=== PATIENT | female | born 1955 | race Caucasian/White ===

== ENCOUNTER 2018-01-18 00:08 | Inpatient (IN) ==
[2018-01-18] MEDS ORDERED: Hydrocortisone Sodium Succ 100 MG/2 ML VIAL IVP ONE (00:45)
[2018-01-18 00:52] LABS: Basophils # 0.1 K/mcL (0.0-0.2); Basophils % 0.7 %; Eosinophils # 0.1 K/mcL (0.0-0.6); Eosinophils % 0.8 %; Hematocrit 48.5 % (35.3-44.9); Immature Granulocytes % 0.5 % (0-4); Lymphocytes # 1.7 K/mcL (0.6-4.6); Lymphocytes % 18.5 %; Mean Corpuscular HGB Conc 35.1 g/dL (31.6-35.5); Mean Corpuscular Hemoglobin 31.2 pg (28.0-33.3); Mean Platelet Volume 9.7 fL (9.4-12.4); Monocytes # 0.3 K/mcL (0.0-1.3); Monocytes % 3.3 %; Platelet Count 288 K/mcL (140-400); Red Blood Count 5.45 M/mcL (3.82-4.97); Segmented Neutrophils % 76.2 %
[2018-01-18 01:11] LABS: Alanine Aminotransferase 37 Units/L (7-52); Albumin 4.9 g/dL (3.5-5.7); Albumin/Globulin Ratio 1.5 (1.1-2.2); Alkaline Phosphatase 96 Units/L (34-104); Aspartate Amino Transferase 53 Units/L (13-39); BUN/Creatinine Ratio 33 (6-26); Bilirubin,Total 0.5 mg/dL (0.3-1.0); Blood Urea Nitrogen 22 mg/dL (8-23); Calcium 10.3 mg/dL (8.6-10.3); Carbon Dioxide 27 mEq/L (23-29); Chloride 100 mEq/L (98-107); Globulin 3.2 g/dL (2.4-3.5); Glucose 90 mg/dL (70-105); Osmolality,Calculated 291 (280-300); Potassium 4.3 mEq/L (3.5-5.1); Sodium 139 mEq/L (136-145); Total Protein 8.1 g/dL (6.4-8.9); Troponin I < 0.03 ng/mL (< 0.04); eGFR For Non-African Americans > 60 (> 60)
[2018-01-18 01:24] LABS: Thyroid Stimulating Hormone 1.429 mcIU/mL (0.340-5.600)
--- NOTE | 2018-01-18 02:40 | Emergency Department Note ---
Disposition Clinical Impression: Syncope Qualifiers: Syncope type: unspecified Qualified Code(s): R55 - Syncope and collapse Hypothermia Qualifiers: Encounter type: initial encounter Qualified Code(s): T68.XXXA - Hypothermia, initial encounter Urinary incontinence Qualifiers: Urinary Incontinence type: unspecified incontinence Qualified Code(s): R32 - Unspecified urinary incontinence Disposition: Admitted As Inpatient Condition: Fair General Adult HPI - General Chief complaint: ED Chest Pain Stated complaint: possible heart attack Time Seen by Provider: 01/18/18 00:16 Source: patient, EMS Mode of arrival: EMS Limitations: no limitations Nursing Notes Reviewed: Yes Vital Signs Reviewed: Yes - History of Present Illness HPI Narrative: 61-year-old female with significant past medical history of hypertension and insulin-dependent diabetes presenting to the emergency department chief complaint of syncope. According to the patient today she felt that her sugar was high. Her glucometer has been broken. She gave herself 35 units of insulin. Around 6 PM an insurance investigator came to her home for a hard scheduled visit. Patient states she does not remember anything else until approximately an hour later when she woke up sitting in her chair and she had loss control of her bladder. Patient states her front door was open at that time. Then patient syncopized again. The next time she woke up was around 11 PM. She called EMS at that time. When EMS arrived to the hospital they stated she was bradycardic in the upper 30s and low 40s on the ride here. During examination patient is shaky but alert and oriented. She denies any chest pain, dizziness or headache at this time. Pain Scale: 0 - Related Data Home Medications Medication Instructions Recorded Confirmed Amlodipine [Norvasc] 10 mg PO QAM 02/05/15 04/02/16 Aspirin Enteric Coated [Aspirin EC] 81 mg PO QAM 02/05/15 04/02/16 Insulin ASPART [NovoLOG] 40 unit SQ TIDWM 02/05/15 04/02/16 Insulin Glargine,Hum.rec.anlog 40 unit SQ QPM 02/05/15 04/02/16 [Lantus Solostar] Lisinopril [Zestril] 40 mg PO DAILY 02/05/15 04/02/16 Metoprolol [Lopressor] 50 mg PO BID 02/05/15 04/02/16 FLUoxetine HCl [Prozac] 20 mg PO DAILY 04/02/16 04/02/16 Previous Rx's Medication Instructions Recorded Acetaminophen [Tylenol] 650 mg PO Q6HR PRN #0 tablet 12/21/15 Allergies Allergy/AdvReac Type Severity Reaction Status Date / Time Penicillins Allergy Rash Verified 03/22/15 07:26 All systems ED: reviewed and negative except as stated. Constitutional: Denies: fever, chills Eyes: Reports: as per HPI ENT ED: Reports: as per HPI Cardiovascular: Denies: chest pain, palpitations, dyspnea on exertion Respiratory: Reports: as per HPI Gastrointestinal: Reports: as per HPI Genitourinary: Reports: as per HPI Musculoskeletal: Reports: as per HPI Integumentary: Reports: as per HPI Neurological: Denies: headache, numbness, paresthesias Psychiatric: Reports: as per HPI Endocrine: Reports: as per HPI Hematological/Lymphatic: Reports: as per HPI Allergic/Immunologic: Reports: as per HPI Past Medical History - Past Medical History Attestation: Yes The following information was validated with the patient. Medical history: Reports: diabetes, hypertension, kidney stones, renal disease Surgical history: Reports: cholecystectomy, hysterectomy, other Psychiatric history: Reports: anxiety, depression BISCUITWARE BRUSHER history: Reports: no BISCUITWARE BRUSHER history - Social History Smoking Status: Never smoker Smokeless Tobacco Status: No Alcohol use: Reports: none Drug use: Reports: none Physical Exam - General Limitations: no limitations General appearance: alert, anxious - Head Head exam: atraumatic, normocephalic, normal inspection - Eye Eye exam: Present: normal appearance, PERRL, EOMI. Absent: scleral icterus, conjunctival injection - ENT ENT exam: normal exam, mucous membranes moist - Neck Neck exam: Present: normal inspection, full ROM. Absent: tenderness, meningismus - Chest Chest inspection: Present: normal inspection, symmetric chest wall rise. Absent : tenderness, rash - Respiratory Respiratory exam: Present: normal lung sounds bilaterally. Absent: respiratory distress, wheezes - Cardiovascular Cardiovascular exam: Present: normal rhythm, bradycardia, normal heart sounds - Abdominal Exam Abdominal exam: Present: soft, Non-Tender. Absent: distention, guarding, rebound - Extremities Exam Extremities exam: Present: normal inspection, full ROM - Neurological Exam Neurological exam: Present: alert, oriented X3, CN II-XII intact. Absent: motor sensory deficit - Psychiatric Psychiatric exam: Present: anxious - Skin Skin exam: Present: warm, intact Course Course Narrative: 62-year-old female presenting for syncope. On exam patient is alert and oriented 3 in the room. She is bradycardic at 40 bpm. She is also hypertensive. Rectal temperature is 90.9. Multiple causes could be the reason for these abnormal findings. We will perform a wide workup including CBC, CMP, TSH, beta hydroxybutyrate acid along with CT of the head. Disposition will be admission the pending results. We will also provide the patient with a Bear hugger to help increase her core temperature. Patient agrees with this plan. - Reevaluation(s) Reevaluation #1: Patient's laboratory analysis mostly benign. No overt cause of syncope found. CT of the head benign. With warming patient's temperature is increased and heart rate has increased as well. Patient has remained alert and oriented 3 in the emergency department. At this time we will plan to admit the patient for further evaluation and workup for her syncope. I spoke with the hospitalist [facility] consultant Dr. Oglesby with agrees to accept the patient at this time. Patient agrees with this plan. Vital Signs Temperature 97.6 F 01/18/18 00:12 Pulse Rate 40 01/18/18 00:12 Respiratory Rate 18 01/18/18 00:12 Blood Pressure 169/116 01/18/18 00:12 O2 Sat by Pulse Oximetry 100 01/18/18 00:12 Temperature 94.3 F L 01/18/18 03:07 Pulse Rate 45 01/18/18 02:14 Respiratory Rate 16 01/18/18 02:14 Blood Pressure 197/79 01/18/18 02:14 O2 Sat by Pulse Oximetry 98 01/18/18 02:14 Oxygen Delivery Oxygen Delivery Room Air Medical Decision Making - Lab Data Result diagrams: 01/18/18 00:35 01/18/18 00:35 Lab Results 01/18/18 01/18/18 01/18/18 Range/Units 00:35 00:35 00:35 WBC 9.2 (4.3-11.1) K/mcL RBC 5.45 H (3.82-4.97) M/mcL Hgb 17.0 H (11.5-15.4) g/dL Hct 48.5 H (35.3-44.9) % MCV 89.0 (83.0-100.0) fL MCH 31.2 (28.0-33.3) pg MCHC 35.1 (31.6-35.5) g/dL RDW 13.0 (11.5-14.5) % Plt Count 288 (140-400) K/mcL MPV 9.7 (9.4-12.4) fL Immature Gran % 0.5 (0-4) % Seg Neutrophils % 76.2 % Lymphocytes % 18.5 % Monocytes % 3.3 % Eosinophils % 0.8 % Basophils % 0.7 % Neutrophils # 7.0 (1.6-8.9) K/mcL Lymphocytes # 1.7 (0.6-4.6) K/mcL Monocytes # 0.3 (0.0-1.3) K/mcL Eosinophils # 0.1 (0.0-0.6) K/mcL Basophils # 0.1 (0.0-0.2) K/mcL Sodium 139 (136-145) mEq/L Potassium 4.3 (3.5-5.1) mEq/L Chloride 100 (98-107) mEq/L Carbon Dioxide 27 (23-29) mEq/L BUN 22 (8-23) mg/dL Creatinine 0.66 (0.60-1.20) mg/dL Est GFR ( Amer) > 60 (> 60) Est GFR (Non-Af Amer) > 60 (> 60) BUN/Creatinine Ratio 33 H (6-26) Glucose 90 (70-105) mg/dL Calculated Osmolality 291 (280-300) Calcium 10.3 (8.6-10.3) mg/dL Total Bilirubin 0.5 (0.3-1.0) mg/dL AST 53 H (13-39) Units/L ALT 37 (7-52) Units/L Alkaline Phosphatase 96 (34-104) Units/L Troponin I < 0.03 (< 0.04) ng/mL Serum Total Protein 8.1 (6.4-8.9) g/dL Albumin 4.9 (3.5-5.7) g/dL Globulin 3.2 (2.4-3.5) g/dL Albumin/Globulin Ratio 1.5 (1.1-2.2) Beta-Hydroxybutyric Acd 0.30 H (0.02-0.27) mmol/L TSH 1.429 (0.340-5.600) mcIU/mL - EKG Data EKG #1 EKG attestation: Yes I reviewed and interpreted this EKG. EKG results narrative: Sinus bradycardia. 40 bpm. [place] interval 176, QRS 103, QTC 517. Significant artifact on EKG. No signs of acute ST segment elevation or ischemia.
[2018-01-18] MEDS ORDERED: Naloxone 0.4 MG/ML INJ IVP PRN (02:57)
--- NOTE | 2018-01-18 03:06 | Emergency Department Note ---
Disposition Clinical Impression: Urinary incontinence Syncope Qualifiers: Syncope type: unspecified Qualified Code(s): R55 - Syncope and collapse Hypothermia Qualifiers: Encounter type: initial encounter Qualified Code(s): T68.XXXA - Hypothermia, initial encounter Disposition: Admitted As Inpatient Condition: Fair General Adult HPI - General Chief complaint: ED Chest Pain Stated complaint: possible heart attack Time Seen by Provider: 01/18/18 00:16 Source: patient, EMS Mode of arrival: EMS Limitations: no limitations Nursing Notes Reviewed: Yes Vital Signs Reviewed: Yes - History of Present Illness Pain Scale: 0 - Related Data Home Medications Medication Instructions Recorded Confirmed Amlodipine [Norvasc] 10 mg PO QAM 02/05/15 01/18/18 Aspirin Enteric Coated [Aspirin EC] 81 mg PO QAM 02/05/15 01/18/18 Insulin ASPART [NovoLOG] 40 unit SQ TIDWM 02/05/15 01/18/18 Insulin Glargine,Hum.rec.anlog 40 unit SQ QPM 02/05/15 01/18/18 [Lantus Solostar] Lisinopril [Zestril] 40 mg PO DAILY 02/05/15 01/18/18 Metoprolol [Lopressor] 50 mg PO BID 02/05/15 01/18/18 FLUoxetine HCl [Prozac] 20 mg PO DAILY 04/02/16 01/18/18 Previous Rx's Medication Instructions Recorded Acetaminophen [Tylenol] 650 mg PO Q6HR PRN #0 tablet 12/21/15 Allergies Allergy/AdvReac Type Severity Reaction Status Date / Time Penicillins Allergy Rash Verified 03/22/15 07:26 Past Medical History - Past Medical History Medical history: Reports: diabetes, hypertension, kidney stones, renal disease Surgical history: Reports: cholecystectomy, hysterectomy, other Psychiatric history: Reports: anxiety, depression RETAIL MERCHANDISING MANAGER history: Reports: no RETAIL MERCHANDISING MANAGER history - Social History Smoking Status: Never smoker Smokeless Tobacco Status: No Alcohol use: Reports: none Drug use: Reports: none Physical Exam - General Limitations: no limitations General appearance: alert Course Vital Signs Temperature 97.6 F 01/18/18 00:12 Pulse Rate 40 01/18/18 00:12 Respiratory Rate 18 01/18/18 00:12 Blood Pressure 169/116 01/18/18 00:12 O2 Sat by Pulse Oximetry 100 01/18/18 00:12 Temperature 94.3 F L 01/18/18 03:07 Pulse Rate 47 01/18/18 03:25 Respiratory Rate 16 01/18/18 03:25 Blood Pressure 180/79 01/18/18 03:25 O2 Sat by Pulse Oximetry 100 01/18/18 03:25 Oxygen Delivery Oxygen Delivery Room Air Medical Decision Making - Medical Records Medical records reviewed: Yes I reviewed the patient's medical records. - Lab Data Lab results reviewed: Yes I reviewed the patient's lab results. Result diagrams: 01/18/18 00:35 01/18/18 00:35 Lab Results 01/18/18 01/18/18 01/18/18 Range/Units 00:35 00:35 00:35 WBC 9.2 (4.3-11.1) K/mcL RBC 5.45 H (3.82-4.97) M/mcL Hgb 17.0 H (11.5-15.4) g/dL Hct 48.5 H (35.3-44.9) % MCV 89.0 (83.0-100.0) fL MCH 31.2 (28.0-33.3) pg MCHC 35.1 (31.6-35.5) g/dL RDW 13.0 (11.5-14.5) % Plt Count 288 (140-400) K/mcL MPV 9.7 (9.4-12.4) fL Immature Gran % 0.5 (0-4) % Seg Neutrophils % 76.2 % Lymphocytes % 18.5 % Monocytes % 3.3 % Eosinophils % 0.8 % Basophils % 0.7 % Neutrophils # 7.0 (1.6-8.9) K/mcL Lymphocytes # 1.7 (0.6-4.6) K/mcL Monocytes # 0.3 (0.0-1.3) K/mcL Eosinophils # 0.1 (0.0-0.6) K/mcL Basophils # 0.1 (0.0-0.2) K/mcL Sodium 139 (136-145) mEq/L Potassium 4.3 (3.5-5.1) mEq/L Chloride 100 (98-107) mEq/L Carbon Dioxide 27 (23-29) mEq/L BUN 22 (8-23) mg/dL Creatinine 0.66 (0.60-1.20) mg/dL Est GFR ( Amer) > 60 (> 60) Est GFR (Non-Af Amer) > 60 (> 60) BUN/Creatinine Ratio 33 H (6-26) Glucose 90 (70-105) mg/dL Calculated Osmolality 291 (280-300) Calcium 10.3 (8.6-10.3) mg/dL Total Bilirubin 0.5 (0.3-1.0) mg/dL AST 53 H (13-39) Units/L ALT 37 (7-52) Units/L Alkaline Phosphatase 96 (34-104) Units/L Troponin I < 0.03 (< 0.04) ng/mL Serum Total Protein 8.1 (6.4-8.9) g/dL Albumin 4.9 (3.5-5.7) g/dL Globulin 3.2 (2.4-3.5) g/dL Albumin/Globulin Ratio 1.5 (1.1-2.2) Beta-Hydroxybutyric Acd 0.30 H (0.02-0.27) mmol/L TSH 1.429 (0.340-5.600) mcIU/mL - Radiology Data Radiology results reviewed: Yes I reviewed the patient's radiology results. Chest X-Ray 01/18/18 00:16 IMPRESSION: No acute abnormality detected. D/ / Michael Hernandes MD / Michael Hernandes MD Interpreting Provider: Michael Hernandes MD Head CT 01/18/18 01:13 IMPRESSION: No acute intracranial abnormality. D/ / Jb Noe / Jb Noe Interpreting Provider: Jb Noe - EKG Data EKG #1 EKG attestation: Yes I reviewed and interpreted this EKG. EKG results narrative: EKG shows a sinus bradycardia with ventricular rate of 40. No acute ST segment elevation or depression noted. Critical Care Time Critical Care Time: Yes Total Critical Care Time: 45 Attestation: Critical care performed: Time is exclusive of separately billable procedures. Time includes: direct patient care, patient reassessment, coordination of patient care, interpretation of data (laboratory data, radiology data, and respiratory data), review of patient's medical records, medical consultation and documentation of patient care. Procedures included in critical care time: Procedures excluded from critical care time: Attestation Statement - Attestation Attestation: I, Gil Grigsby MD, personally evaluated this patient and discussed their management with the resident physician. I reviewed the resident's note and agree with the documented findings, medical decision making, and plan of care. 62-year-old female presents to the emergency department by ambulance with a complaint of some chest pain as well as altered mental status. Patient states she felt fine throughout the day and has not been ill. She is not diabetic. There is a friend here who states that she had coffee with the patient about 3: 30 this afternoon and patient was fine at that time. Patient reports that she was not feeling well and she remembers an title insurance agent came to her home for a scheduled visit. This was around 5 PM. The next thing she remembers is that she woke up sometime around 6 or 6:30 PM and the salesman was gone and the door was open. She apparently got up and close the door and then the next thing she remembers she woke up about 11:30 PM sitting in her chair in front of the television. At that time she had some chest pains and shortness of breath. She called EMS. On arrival here the pain has resolved however she was noted to be bradycardic with a heart rate of around 40. She also states that she took some extra insulin this evening because she felt like her sugar was high. He has not been able to check her sugar because her glucometer was broken. Here in the emergency department patient was awake and alert but was noted to also be hypothermic with a rectal temperature of 90.9. She denies any chest pain or shortness of breath at this time. No abdominal pain. No nausea or vomiting or diarrhea. No fever. No headache. No focal numbness tingling or weakness. On examination patient is a well-developed well-nourished female in no acute distress. She is alert and oriented 3. There is no cyanosis or diaphoresis. Breath sounds are clear and equal bilaterally. Heart is regular with a moderate bradycardia. Abdomen is soft and nontender with present bowel sounds. No gross focal neurological deficits. EKG showed a sinus bradycardia with a rate of 40. Labs and imaging reviewed. Patient's symptoms did improve significantly while here in the emergency department. The hospitalist, Dr. Oglesby, was consulted and accepted admission of the patient.
--- NOTE | 2018-01-18 03:22 | Internal Med History&Physical ---
Date of Encounter: 01/18/18 Time of Encounter: 03:20 Internal Medicine - H&P: HPI Chief complaint: Syncope Admitted From: Home Plans for Post Hospital Care: Home History of present illness: Ms. Hunter is a 62 year old female presented with chief complaint of syncope. Patient reports at 5 PM she had an appointment at her house with a renters insurance operations rep and was sitting in chair during the appointment. Thereafter she remembers waking up at 6 PM to passing out. Her front door was open and the insurance operations rep was gone. She reports she does not remember what happened before she passed out and states she wet herself. She reports having all her clothes on. She deines using illicit drugs. Thereafter she woke up she passed out again woke up again at 11:00. At that time patient called the squad. She also called her sister reports that patient's speech was garbled and difficult to understand. She denies dizziness, lightheadedness, tongue bite, loss of bowel function. She is a type I diabetic and reports giving herself 35 units of insulin at 5 PM without checking her blood sugar since her glucometer was broken. Her last hemoglobin A1c was 10.1 on March 2016. She also reported some shortness of breath and chest pain that has not resolved. She denies headache, blurry vision, abdominal pain, nausea, vomiting, diarrhea, hematochezia, melena, constipation. She reports her recently a few months ago. She reports weight loss but does not know how much. Past Med Surg Social Fam HX - Past Medical History Medical history: diabetes, hypertension, kidney stones, renal disease Psychiatric history: anxiety, depression - Past Surgical History Surgical History: cholecystectomy, hysterectomy, other Additional surgical history: RIGHT NEPHRECTOMY - Social History Smoking Status: Never smoker Smokeless Tobacco Status: No Alcohol use: none Drug use: none Occupational status: disabled (diabetes) - Family History Mother Living Status: Hx Family Cardiac Disorders: Yes Hx Family Respiratory Disorders: No Hx Family Cancer: No Hx Family GI Disorders: No Hx Family Endocrine Disorder: Yes Hx Family Neuromuscular Disorders: No Hx Family Neurologic Disorders: No Hx Family HEENT Disorders: No Hx Family Autoimmune Disorders: No Internal Medicine - H&P: Meds Amlodipine [Norvasc] 10 mg PO QAM 02/05/15 [History] Aspirin Enteric Coated [Aspirin EC] 81 mg PO QAM 02/05/15 [History] Insulin ASPART [NovoLOG] 40 unit SQ TIDWM 02/05/15 [History] Insulin Glargine,Hum.rec.anlog [Lantus Solostar] 40 unit SQ QPM 02/05/15 [ History] Lisinopril [Zestril] 40 mg PO DAILY 02/05/15 [History] Metoprolol [Lopressor] 50 mg PO BID 02/05/15 [History] Acetaminophen [Tylenol] 650 mg PO Q6HR PRN #0 tablet 12/21/15 [Rx] FLUoxetine HCl [Prozac] 20 mg PO DAILY 04/02/16 [History] 3 Allergy/AdvReac Type Severity Reaction Status Date / Time Penicillins Allergy Rash Verified 03/22/15 07:26 All Systems PM: A 10-system review of systems was performed and is negative for pertinent findings except as documented above in the HPI. Review of systems: Constitutional: Denies fever, reports chills HEENT: Denies headache, vision changes, neck pain, sore throat, rhinorrhea Heart: reports chest pain denies palpitations Lungs: reports shortness of breath denies cough Abdomen: Denies abdominal pain nausea vomiting diarrhea Back: Denies back pain Kidney: Denies dysuria, hematuria Skin: Denies rash, lesions Extremities: Denies swelling, pain Neuro: Denies numbness and tingling - Constitutional Vitals: Temp Pulse Resp BP Pulse Ox 94.3 F L 45 16 197/79 98 01/18/18 03:07 01/18/18 02:14 01/18/18 02:14 01/18/18 02:14 01/18/18 02:14 Exam: General: Pleasant without distress HEENT: Head atraumatic, normocephalic, EOMI, PERRL, neck nontender to palpation , absent lymphadenopathy, Moist Mucous Membranes, Heart: Sinus bradycardia Lungs: Clear to auscultation bilaterally Abdomen: Soft nontender, nondistended positive bowel sounds Skin: warm and dry, absent rash Extremities: Absent pedal edema, Neuro: Cranial nerves II through XII intact, UE and LE sensation equal bilaterally, UE and LEstrength 5/5, alert oriented 3, Vascular: Pedal and radial pulses 2 out of 4 Internal Med - H&P Results - Labs CBC & Chem 7: 01/18/18 00:35 01/18/18 00:35 Labs: Short CBC 01/18/18 Range/Units 00:35 WBC 9.2 (4.3-11.1) K/mcL Hgb 17.0 H (11.5-15.4) g/dL Hct 48.5 H (35.3-44.9) % Plt Count 288 (140-400) K/mcL Neutrophils # 7.0 (1.6-8.9) K/mcL BMP 01/18/18 00:35 Sodium 139 Potassium 4.3 Chloride 100 Carbon Dioxide 27 BUN 22 Creatinine 0.66 Glucose 90 Calcium 10.3 Cardiac Enzymes 01/18/18 Range/Units 00:35 Troponin I < 0.03 (< 0.04) ng/mL Liver Function 01/18/18 Range/Units 00:35 Total Bilirubin 0.5 (0.3-1.0) mg/dL AST 53 H (13-39) Units/L ALT 37 (7-52) Units/L Alkaline Phosphatase 96 (34-104) Units/L Albumin 4.9 (3.5-5.7) g/dL - Impressions ITS Impressions Chest X-Ray 01/18/18 00:16 IMPRESSION: No acute abnormality detected. D/ / Michael Hernandes MD / Michael Hernandes MD Interpreting Provider: Michael Hernandes MD Head CT 01/18/18 01:13 IMPRESSION: No acute intracranial abnormality. D/ / Jb Noe / Jb Noe Interpreting Provider: Jb Noe - Assessment and plan (1) Syncope Current Visit: Yes Status: Acute Assessment and plan: 62 y/o female presented with cc of syncope Ct head negative EKG shows sinus bradycardia trop WNL etiology: hypoglycemia: patient gave herself 35 units of insulin. Her glucose was 83 on presentation. She states it is usually in the 500s hypothermia: unknown etiology of hypothermia seziure: denies tongue biting, or loss of bowel function. reports loss of bladder function cardiac: patient is sinus bradycardia. She does take metoprolol and reports compliance. plan: telemetry, EEG, echocardiogram, thryoid cascade Qualifiers: Syncope type: unspecified Qualified Code(s): R55 - Syncope and collapse (2) Hypothermia Current Visit: Yes Status: Acute Assessment and plan: patients rectal temperature was 90.9 degrees on admission unclear etiology tsh wnl she has a bear hugger and her temp has improved to 94.3 patient was given stress dose steroids by ED Qualifiers: Encounter type: initial encounter Qualified Code(s): T68.XXXA - Hypothermia , initial encounter (3) Bradycardia Current Visit: Yes Status: Acute Assessment and plan: patients EKG shows sinus bradycardia. HR is 47 she is on metoprolol 50mg BID which is held will do echocardiogram (4) Type 1 diabetes mellitus Current Visit: Yes Status: Acute Assessment and plan: patient has hx of type 1 diabetes mellitus last A1c is from 2016 and was 10 will repeat A1c start her on diabetic diet and low dose sliding scale insulin current POC glucose is 83. Qualifiers: Diabetes mellitus complication status: without complication Qualified Code( s): E10.9 - Type 1 diabetes mellitus without complications (5) Anxiety and depression Current Visit: Yes Status: Acute Assessment and plan: patient has hx of anxiety and depression she is on fluoxetine her just few months ago and this has been very hard for her she does not see a psychiatrist or counselor she report some weight loss since her husbands we will continue fluoxetine. (6) HTN (hypertension) Current Visit: Yes Status: Chronic Assessment and plan: patient has hx of HTN reports compliance with her home medications of lisinopril, amlodipine and metoprolol. however her BP is very elevated 180/79 we will restart her home meds except for metoprolol and trend BP Qualifiers: Hypertension type: essential hypertension Qualified Code(s): I10 - Essential (primary) hypertension - Time Spent With Patient Total time spent is greater than 50% in coordination of care (as documented) at patient's floor/unit and/or counseling patient:
[2018-01-18] MEDS ORDERED: *HR* Dextrose 50 % in Water (Syg) 50 ML SYRINGE IVP PRN (03:37)
[2018-01-18] MEDS ORDERED: D5% in Water 1,000 ML IVC PRN (03:37)
[2018-01-18] MEDS ORDERED: Dextrose Gel 15 GM/37.5 ML TUBE PO PRN ×2 (03:37)
[2018-01-18 05:05] LABS: Hematocrit 41.7 % (35.3-44.9); Mean Corpuscular HGB Conc 35.3 g/dL (31.6-35.5); Mean Corpuscular Hemoglobin 30.5 pg (28.0-33.3); Mean Corpuscular Volume 86.5 fL (83.0-100.0); Mean Platelet Volume 9.6 fL (9.4-12.4); Platelet Count 247 K/mcL (140-400); Red Blood Count 4.82 M/mcL (3.82-4.97); Red Cell Distribution Width 13.1 % (11.5-14.5)
[2018-01-18 05:08] LABS: Hemoglobin 14.7 g/dL (11.5-15.4)
[2018-01-18] MEDS: *HR* Heparin 5,000 UNIT/ML VIAL SQ SCH ×3 (05:56→20:11)
[2018-01-18] MEDS: Insulin LISPRO 300 UNITS/3 ML VIAL SQ SCH ×3 (07:51→17:05)
[2018-01-18] MEDS: Lisinopril 20 MG TABLET PO SCH (07:51)
[2018-01-18] MEDS: Aspirin Enteric Coated 81 MG Tablet PO SCH (07:51)
[2018-01-18] MEDS: amLODIPine 5 MG TABLET PO SCH (07:51)
[2018-01-18] MEDS: FLUoxetine 20 MG CAPSULE PO SCH (07:51)
--- NOTE | 2018-01-18 09:41 | Neurology - Consult Note ---
<Sheila Garcia P - Last Filed: 01/18/18 09:59> Date of Encounter: 01/18/18 Time of Encounter: 09:00 Assessment and Plan (1) Altered mental status Current Visit: Yes Status: Acute Patient is Diabetic under insulin treatment Lapse of memory for a few hours Took Insulin ( as scheduled) without checking blood sugar No seizure like activity, no fall or injury, no h/o illicit drug use or alcohol use We will monitor Plan : TSH : normal report EEG Vit B12 and Folic acid level Animal Warden opinion Qualifiers: Altered mental status type: unspecified Qualified Code(s): R41.82 - Altered mental status, unspecified History of Present Illness Chief complaint: Altered mental status , chest pain HPI: Ms. Hunter is a 62 year old female with past diagnoses of HTN, DM under insulin presented with chief complaint of altered mental status / pass out and chest pain.. Patient reports that she passed out for about a hour , she doesn't remember the things happened during the interval when she recovered . She further states that she again passed out for a few hours after recovery , she couldn't recall things happened with her with this second episode . According to her sister her voice was muffled and difficult to understand at that time. She denies any h/o dizziness, seizure like activity, fall or trauma, lightheadedness, tongue bite, loss of bowel/ bladder function, any illicit drugs or alcohol uses. She is a type I diabetic and acknowledged giving herself 35 units of insulin at 5 PM without checking her blood sugar level. She also states that she has mild SOB and chest pain. She doesn't have any h/o headache, blurry vision, abdominal pain, nausea, vomiting, diarrhea, constipation. She mentioned mild weight loss Today she was alert, well oriented to TPP, speaking normally , denies any slurred speech, limb weakness, vision problem, numbness and tingling or any new development of neurological deficits. Vitals quiet stable at hospital: BP 156/ 81, 97.9F , sat 97%. Labs: WBC 7.3, Na 139., K 4.3, BUN 22, creatinine 0.66, Glucose 90, TSH 1.405 CT head : normal finding , no clot : Xray chest: normal Past Med Surg Social Fam HX - Past Medical History Medical history: diabetes, hypertension, kidney stones Psychiatric history: anxiety, depression - Past Surgical History Surgical History: cholecystectomy, hysterectomy, other Additional surgical history: RIGHT NEPHRECTOMY - Social History Smoking Status: Never smoker Smokeless Tobacco Status: No Alcohol use: none Drug use: none - Family History Mother Living Status: Hx Family Cardiac Disorders: Yes Hx Family Respiratory Disorders: No Hx Family Cancer: No Hx Family GI Disorders: No Hx Family Endocrine Disorder: Yes Hx Family Neuromuscular Disorders: No Hx Family Neurologic Disorders: No Hx Family HEENT Disorders: No Hx Family Autoimmune Disorders: No Medications and Allergies Aspirin Enteric Coated [Aspirin EC] 81 mg PO QAM 02/05/15 [History] Insulin Glargine,Hum.rec.anlog [Lantus Solostar] 30 - 35 unit SQ QPM 02/05/15 [ History] Acetaminophen [Tylenol] 650 mg PO Q6HR PRN #0 tablet 12/21/15 [Rx] FLUoxetine HCl [Prozac] 20 mg PO DAILY 04/02/16 [History] Amlodipine Besylate 10 mg PO DAILY 01/18/18 [History] Insulin ASPART [Novolog Flexpen] 25 - 30 unit SQ TIDWM 01/18/18 [History] Lisinopril [Zestril] 40 mg PO DAILY 01/18/18 [History] Metoprolol [Lopressor] 50 mg PO BID 01/18/18 [History] 3 Allergy/AdvReac Type Severity Reaction Status Date / Time Penicillins Allergy Rash Verified 01/18/18 08:06 All Systems: The remainder of the systems were reviewed and are negative Physical Examination - Vital Signs Vital Signs: Initial Vital Signs Temp Pulse Resp BP Pulse Ox 97.6 F 40 18 169/116 100 01/18/18 00:12 01/18/18 00:12 01/18/18 00:12 01/18/18 00:12 01/18/18 00:12 - Constitutional General appearance: comfortable - Neurologic Sensorimotor examination: intact Detailed motor examination: grossly full strength in all extremities Motor examination - right side: 5/5: deltoids, biceps, triceps, wrist flexion, wrist extension, case investigator, hip flexors, tibialis Anterior, quadriceps, toe extension (EHL), plantarflexion Motor examination - left side: 5/5: deltoids, biceps, triceps, wrist flexion, wrist extension, hip flexors, case investigator, quadriceps, tibialis Anterior, toe extension (EHL), plantarflexion Detailed sensory examination: intact Reflex and gait examination: intact Reflexes: Biceps: 2+, Triceps: 2+, Brachioradialis: 2+, Patella: 2+, Achilles: 2 + Mental Status Examination: awake, alert, oriented to person, oriented to place, oriented to time Cerebellar examination: no dysmetria, no gait ataxia Results - Laboratory Findings CBC and BMP: 01/18/18 04:34 01/18/18 00:35 Abnormal lab findings: Abnormal lab results BUN/Creatinine Ratio 33 (6-26) H 01/18/18 00:35 AST 53 Units/L (13-39) H 01/18/18 00:35 Beta-Hydroxybutyric Acd 0.30 mmol/L (0.02-0.27) H 01/18/18 00:35 Consult Discharge Plan - Plan Referrals: Arcenio Rivera Jr, MD [Primary Care Provider] - <Lincoln Johnson I - Last Filed: 01/18/18 11:18> Date of Encounter: 01/18/18 Assessment and Plan (1) Altered mental status Current Visit: Yes Status: Acute Pt was seen and examined, my medical decision was reviewed with the Resident Physician, I agree with the documented findings, disposition and treatment plas as described except to the extent set forth below Patient was been admitted with mental status changes now seems to resolve back to her baseline no focal deficit on neurological examination to be suggestive of stroke at the same time history does not seems to be compatible with the seizures. Suggest checking for metabolic abnormalities at the same time cardiological evaluation for decrease heart rate Perhaps symptoms could be related to hypoglycemia or bradycardia again no evidence of any stroke or any seizure activity. We will review the EEG also suggested check for other metabolic and infectious etiologies that may be be the cause of her symptoms. Stable from neurology standpoint all workup is negative okay to discharge Lincoln Johnson MD Qualifiers: Altered mental status type: unspecified Qualified Code(s): R41.82 - Altered mental status, unspecified History of Present Illness HPI: Ms. Hunter is a 62 year old female All Systems: The remainder of the systems were reviewed and are negative Physical Examination - Vital Signs Vital Signs: Initial Vital Signs Temp Pulse Resp BP Pulse Ox 97.6 F 40 18 169/116 100 01/18/18 00:12 01/18/18 00:12 01/18/18 00:12 01/18/18 00:12 01/18/18 00:12 Results - Laboratory Findings CBC and BMP: 01/18/18 04:34 01/18/18 00:35 Abnormal lab findings: Abnormal lab results BUN/Creatinine Ratio 33 (6-26) H 01/18/18 00:35 Hemoglobin A1c 11.0 % (-5.6) H 01/18/18 04:34 AST 53 Units/L (13-39) H 01/18/18 00:35 Folate 21.4 ng/mL (3.0-16.0) H 01/18/18 09:59 Beta-Hydroxybutyric Acd 0.30 mmol/L (0.02-0.27) H 01/18/18 00:35
[2018-01-18 10:21] LABS: Amphetamine Screen,Urine Negative ng/mL (Cutoff=1000); Barbiturate Screen,Urine Negative ng/mL (Cutoff=200); Benzodiazepines Screen,Urine Negative ng/mL (Cutoff=200); Cannabinoid Screen,Urine Negative ng/mL (Cutoff = 50); Cocaine Screen,Urine Negative ng/mL (Cutoff= 300); Opiate Screen,Urine Negative ng/mL (Cutoff=300); Phencyclidine Screen,Urine Negative ng/mL (Cutoff=25)
[2018-01-18 10:45] LABS: Estimated Average Glucose 269 mg/dl
[2018-01-18 11:06] LABS: Folate 21.4 ng/mL (3.0-16.0)
--- NOTE | 2018-01-18 11:10 | EEG/EMG/Oth Biometrics Report ---
EEG Procedure Report Date of procedure: 01/18/18 EEG Procedure: Routine EEG Procedure Note: This is a routine 21 channel digital EEG performed utilizing 10- 20 international electrode placement system. FINDINGS: Patient has a predominant waking background frequency that is average voltage 8 to 10 Hertz alpha activity in the posterior region, normal amplitude symmetrical over the both hemispheres reactive to eyes opening and closing record continued to show alpha activity intermixed with some theta off and on, no abnormal activity recorded, predominantly no evidence of any spike wave discharges or any lateralizing abnormalities, Photic stimulation did not produce any convulsive response. Intermittent EMG artifacts were noted. Stage II sleep was not achieved. Impression: Within the broad range of Normal awake drowsy electroencephalogram. No epileptiform discharges or any other paroxysmal activities noted. ( Please note that normal EEG does not exclude the diagnosis of seizures or epilepsy, clinical correlation is suggested)
--- NOTE | 2018-01-18 14:05 | Event Note ---
<Dylon Burns - Last Filed: 01/18/18 18:11> Date of Encounter: 01/18/18 Time of Encounter: 08:30 S: Interval history - 62f presenting with syncopal episode x2 on 01/17; pmh dm1 and htn; she has a broken glucometer, brought in by squad to ED alert and oriented a1c ordered by night team 11.0, ecg demonstrated sinus annette, ed rectal temp of 90.9 which has increased to 97.0 with initial bearhugger, euthyroid. O: gen - alert and oriented x3, nad, answer q's appropriately head - atraum/normoceph neck - no lad, no goiter cv - rrr, s1, s2, no murmur, gallop, rub, heave abd - soft, non-tender, non-distended neuro - no focal deficit, no slurred speech, no facial droop A/P: 1. syncope 62 y/o female presented with cc of syncope Ct head negative EKG shows sinus bradycardia trop WNL etiology: hypoglycemia: patient gave herself 35 units of insulin. Her glucose was 83 on presentation. glucometer broken. She states it is usually in the 500s hypothermia x 2 values, euthyroid, responded to bear hugger. seizure: denies tongue biting, or loss of bowel function. reports loss of bladder function cardiac: patient is sinus bradycardia. She does take metoprolol and reports compliance. plan: telemetry, EEG, echocardiogram pending; cardiology consult 2. hypothermia 97s and stable, unclear etiology, euthyroid, s/p steroid stress dose from ED, sonam dc'd 3. bradycardia takes beta-santy at home, held echo pending 4. type 1 diabetes a1c at 11 diabetic diet, low dose ssi 5. anxiety/depression cont fluoxetine recent stressors, loss of appears good support network with [id number] 6. htn elevated bps 180s-200 systolic home lopressor at 50mg BID <Dick Rey - Last Filed: 01/18/18 19:19> Date of Encounter: 01/18/18 Pt was admitted earlier this AM with syncope and bradycardia. Agree with above assessment and plan.
--- NOTE | 2018-01-18 15:07 | Cardiology Consult Note ---
Date of Encounter: 01/18/18 Time of Encounter: 15:00 Assessment and Plan (1) Syncope Current Visit: Yes Status: Acute Reported x2 syncopal episodes yesterday--unclear etiology. Possible multifactorial. Hx of insulin dependent DM, took 35 units of insulin without checking glucose ( glucometer broke) Sinus bradycardia (40's) upon arrival to ED in the setting of hypothermia-- rectal temp 90.9 upon admission. On lopressor 50 mg BID at home. Lopressor held, HR appears to be stable. Avg HR since admission (~3:30 AM) 61 BPM, no significant pause or AVB noted. Min HR=48. HR 60's upon bedside. Would recommend avoiding AV cullen blocking agents. Recommend outpatient follow-up with Cardiology with possible HM/event monitor. Qualifiers: Syncope type: unspecified Qualified Code(s): R55 - Syncope and collapse (2) HTN (hypertension) Current Visit: Yes Status: Chronic Remains poorly controlled. Norvasc added today. Would avoid AV cullen blocking agents for BP control. Qualifiers: Hypertension type: essential hypertension Qualified Code(s): I10 - Essential (primary) hypertension Discussion w patient/family: The assessment and plan as outlined above was discussed with the patient and/or family members who expressed understanding and agreement. All questions were answered. Thank you for involving us in the care of your patient. Please call with any questions. History of Present Illness Consult date: 01/18/18 Requesting physician: Dick Rey Consult reason: syncope Chief complaint: syncope History of present illness: Ms. Hunter is a 62 year old female with PMHx significant for HTN, kidney stones who presented to the ED via EMS after reported x2 syncopal episodes yesterday at home. She reports she felt as though her sugar was running high yesterday (glucometer broken) therefore she took 35 units of insulin, she then had lunch with family and came back home. Reports shortly after coming home she felt dizzy and lightheaded, she actually had an appt with insurance policy clerk and reports she passed out while talking to him. She thinks she was down for nearly an hour before coming to, then reports she passed out again. After coming to the second time she called EMS. Upon arrival to ED, ECG demonstrated SB 40 BPM. Rectal temperature 90.9. Blood glucose 80. She is on Lopressor 50 mg BID at home for blood pressure. Past Med Surg Social Fam HX - Past Medical History Attestation: Yes The following information was validated with the patient. Source: patient Medical history: diabetes, hypertension, kidney stones Psychiatric history: anxiety, depression - Past Surgical History Surgical History: cholecystectomy, hysterectomy, other Additional surgical history: RIGHT NEPHRECTOMY - Social History Smoking Status: Never smoker Smokeless Tobacco Status: No Alcohol use: none Drug use: none - Family History Mother Living Status: Hx Family Cardiac Disorders: Yes Hx Family Respiratory Disorders: No Hx Family Cancer: No Hx Family GI Disorders: No Hx Family Endocrine Disorder: Yes Hx Family Neuromuscular Disorders: No Hx Family Neurologic Disorders: No Hx Family HEENT Disorders: No Hx Family Autoimmune Disorders: No Medications and Allergies Aspirin Enteric Coated [Aspirin EC] 81 mg PO QAM 02/05/15 [History] Insulin Glargine,Hum.rec.anlog [Lantus Solostar] 30 - 35 unit SQ QPM 02/05/15 [ History] Acetaminophen [Tylenol] 650 mg PO Q6HR PRN #0 tablet 12/21/15 [Rx] FLUoxetine HCl [Prozac] 20 mg PO DAILY 04/02/16 [History] Amlodipine Besylate 10 mg PO DAILY 01/18/18 [History] Insulin ASPART [Novolog Flexpen] 25 - 30 unit SQ TIDWM 01/18/18 [History] Lisinopril [Zestril] 40 mg PO DAILY 01/18/18 [History] Metoprolol [Lopressor] 50 mg PO BID 01/18/18 [History] 3 Allergy/AdvReac Type Severity Reaction Status Date / Time Penicillins Allergy Rash Verified 01/18/18 08:06 All Systems Review: The remainder of the systems were reviewed and are negative - Cardiovascular Cardiovascular: as per HPI Physical Examination Vital Signs, Last 4 Hours Temp Pulse Resp BP Pulse Ox 01/18/18 11:49 98.0 F 63 18 151/68 97 General: Conversant, No Apparent Distress HEENT: Atraumatic, Normocephaly, Mucus Membranes Moist Neck: No JVD, Normal carotid pulses Cardiac: Reg Rate and Rhythm, Normal S1 and S2, No Murmur Lungs: Normal Breath Sounds, No Wheeze, Rales, Rhonchi Neuro: Alert and responsive, No focal deficits noted Abdomen: Soft, Non-Tender Skin: No rashes noted on visualized skin Musculoskeletal: No Chest Wall Tenderness Extremities: No Clubbing, No Cyanosis, No Edema, Normal Pulses Results 01/18/18 04:34 01/18/18 00:35 Active Medications Amlodipine Besylate (Norvasc) 10 mg PO QAM [facility] PRN Reason: Protocol Stop: 07/20/18 09:01 Last Admin: 01/18/18 07:51 Dose: 10 mg Aspirin (Aspirin Ec) 81 mg PO QAM [facility] Stop: 07/20/18 09:01 Last Admin: 01/18/18 07:51 Dose: 81 mg Dextrose/Water (Dextrose 50% (Syg)) 25 ml IVP AD PRN PRN Reason: Hypoglycemia Stop: 07/20/18 03:38 Fluoxetine HCl (Prozac) 20 mg PO DAILY [facility] PRN Reason: Protocol Stop: 07/20/18 09:01 Last Admin: 01/18/18 07:51 Dose: 20 mg Glucagon (Glucagen) 1 mg IM ONCE PRN PRN Reason: Hypoglycemia Stop: 07/20/18 03:38 Glucose (Gluctose) 15 gm PO ONCE PRN PRN Reason: Hypoglycemia Stop: 07/20/18 03:38 Glucose (Gluctose) 30 gm PO ONCE PRN PRN Reason: Hypoglycemia Stop: 07/20/18 03:38 Heparin Sodium (Porcine) (Heparin) 5,000 unit SQ Q8HCO [facility] Stop: 07/20/18 06:01 Last Admin: 01/18/18 14:16 Dose: 5,000 unit Dextrose (Dextrose 5%) 1,000 mls @ 100 mls/hr IVC .Q10H PRN PRN Reason: HYPOGLYCEMIA Stop: 07/20/18 03:38 Insulin Human Lispro (Humalog) 0 units SQ HS [facility] PRN Reason: Protocol Stop: 07/20/18 21:01 Insulin Human Lispro (Humalog) 0 units SQ TIDAC [facility] PRN Reason: Protocol Stop: 07/20/18 07:31 Last Admin: 01/18/18 11:58 Dose: 8 unit Lisinopril (Zestril) 40 mg PO DAILY [facility] PRN Reason: Protocol Stop: 07/20/18 09:01 Last Admin: 01/18/18 07:51 Dose: 40 mg Naloxone HCl (Narcan) 0.4 mg IVP Q2MIN PRN PRN Reason: SEE COMMENTS Stop: 07/20/18 02:58 - Imaging and Cardiology Echo: report reviewed - EKG Interpretation EKG results cardiology: personally reviewed Consult Discharge Plan - Plan Referrals: Arcenio Rivera Jr, MD [Primary Care Provider] -
[2018-01-18] MEDS: Acetaminophen 325 MG TABLET PO PRN (18:17)
[2018-01-18] MEDS ORDERED: Insulin LISPRO 300 UNITS/3 ML VIAL SQ SCH (21:00)
[2018-01-19] MEDS: Acetaminophen 325 MG TABLET PO PRN (03:57)
[2018-01-19 06:05] LABS: Hematocrit 40.7 % (35.3-44.9); Hemoglobin 14.2 g/dL (11.5-15.4); Mean Corpuscular HGB Conc 34.9 g/dL (31.6-35.5); Mean Corpuscular Volume 88.9 fL (83.0-100.0); Mean Platelet Volume 9.9 fL (9.4-12.4); Platelet Count 251 K/mcL (140-400); Red Blood Count 4.58 M/mcL (3.82-4.97); Red Cell Distribution Width 13.1 % (11.5-14.5)
[2018-01-19] MEDS: *HR* Heparin 5,000 UNIT/ML VIAL SQ SCH ×2 (06:07→13:31)
[2018-01-19 06:21] LABS: BUN/Creatinine Ratio 32 (6-26); Blood Urea Nitrogen 26 mg/dL (8-23); Calcium 8.7 mg/dL (8.6-10.3); Carbon Dioxide 23 mEq/L (23-29); Chloride 102 mEq/L (98-107); Glucose 417 mg/dL (70-105); Osmolality,Calculated 300 (280-300); Potassium 3.7 mEq/L (3.5-5.1); Sodium 134 mEq/L (136-145); eGFR For Non-African Americans > 60 (> 60)
[2018-01-19] MEDS: Lisinopril 20 MG TABLET PO SCH (07:52)
[2018-01-19] MEDS: FLUoxetine 20 MG CAPSULE PO SCH (07:52)
[2018-01-19] MEDS: Aspirin Enteric Coated 81 MG Tablet PO SCH (07:52)
[2018-01-19] MEDS: amLODIPine 5 MG TABLET PO SCH (07:52)
[2018-01-19] MEDS: Insulin LISPRO 300 UNITS/3 ML VIAL SQ SCH ×3 (07:53→16:13)
--- NOTE | 2018-01-19 10:26 | Event Note ---
Date of Encounter: 01/19/18 Time of Encounter: 10:00 - Cardiology Event Note Telemetry reviewed: avg HR=64 SR overnight. No pause, AVB or arrhythmia noted. HR 60''s-low 70's upon exam. No symptoms reported. Avoid AV cullen blocking agents. Recommend HM upon discharge, order placed. No further inpatient testing. Will coordinate outpatient follow-up. Patient agreeable with plan.
[2018-01-19 11:19] VITALS: BP 135/65
--- NOTE | 2018-01-19 14:11 | Discharge Summary ---
Orders not resulted at time of discharge: Pending orders 01/19/18 08:02 ECG 48 holter monitor setup [ECG] Routine Date of Encounter: 01/19/18 Time of Encounter: 14:09 - Discharge Diagnosis (1) Syncope Priority: Primary Status: Acute Qualifiers: Syncope type: unspecified Qualified Code(s): R55 - Syncope and collapse (2) HTN (hypertension) Priority: Secondary Status: Chronic Qualifiers: Hypertension type: essential hypertension Qualified Code(s): I10 - Essential (primary) hypertension (3) Hypothermia Priority: Secondary Status: Resolved Qualifiers: Encounter type: initial encounter Qualified Code(s): T68.XXXA - Hypothermia , initial encounter (4) Bradycardia Priority: Secondary Status: Resolved (5) Type 1 diabetes mellitus Priority: Primary Status: Acute Qualifiers: Diabetes mellitus complication status: without complication Qualified Code( s): E10.9 - Type 1 diabetes mellitus without complications (6) Anxiety and depression Priority: Secondary Status: Chronic Hospital course: Ms. Hunter is a 62 year old female presented with chief complaint of syncope. Patient reports at 5 PM she had an appointment at her house with a renters insurance sales manager and was sitting in chair during the appointment. Thereafter she remembers waking up at 6 PM to passing out. Her front door was open and the insurance sales manager was gone. She reports she does not remember what happened before she passed out and states she wet herself. She reports having all her clothes on. She deines using illicit drugs. Thereafter she woke up she passed out again woke up again at 11:00. At that time patient called the squad. She also called her sister reports that patient's speech was garbled and difficult to understand. She denies dizziness, lightheadedness, tongue bite , loss of bowel function. She is a type I diabetic and reports giving herself 35 units of insulin at 5 PM without checking her blood sugar since her glucometer was broken. Her last hemoglobin A1c was 10.1 on March 2016. Patient was admitted for hypoglycemia, hypothemia, and syncope work up. her schedulced insulin was on hold, hypoglycemia/hypothermia resolved. Neurology was consulted, had normal EEG, ok to discharge. Patient is instructed not to drive until cleared by her PCP. Cardiology was consulted for sinus bradycardia and syncope. metoprolol was on hold, her HR improved. 60''s-low 70's No symptoms reported. cardiology recommended Avoid AV cullen blocking agents. HM upon discharge, order placed. No further inpatient testing. Will coordinate outpatient follow-up. Patient agreeable with plan. I discussed with patient to reduce pre-meal insuin to 25 units if BG < 200, and I also give a script for gluometer for her to get new meter. Patient is instructed to not drive untile her PCP clear her for driving Discharge discussed with: patient Time spent discussing smoking cessation with patient: more than 10 minutes - Time Spent with Patient Total time spent providing and/or coordinating discharge services: Less than 30 minutes - Discharge Medications Home Medications: Aspirin Enteric Coated [Aspirin EC] 81 mg PO QAM 02/05/15 [History] Insulin Glargine,Hum.rec.anlog [Lantus Solostar] 30 - 35 unit SQ QPM 02/05/15 [ History] Acetaminophen [Tylenol] 650 mg PO Q6HR PRN #0 tablet 12/21/15 [Rx] FLUoxetine HCl [Prozac] 20 mg PO DAILY 04/02/16 [History] Amlodipine Besylate 10 mg PO DAILY 01/18/18 [History] Lisinopril [Zestril] 40 mg PO DAILY 01/18/18 [History] Metoprolol [Lopressor] 50 mg PO BID 01/18/18 [History] Insulin ASPART [Novolog Flexpen] 25 - 30 unit SQ TIDWM #0 01/19/18 [Rx] Allergies/Adverse Reactions: 3 Allergy/AdvReac Type Severity Reaction Status Date / Time Penicillins Allergy Rash Verified 01/18/18 08:06 Date of admission: 01/18/18 05:04 Primary care physician: Arcenio Rivera Jr, MD Consults: 01/18/18 13:23 Consult to Interpret Exam [CONS] Routine Consulting Provider: Lincoln Johnson I Consult to Interpret Exam: Interpret EEG 01/18/18 14:38 Consult to Cardiology [CONS] Routine Comment: Consulting Provider: Cardiology Bernadette Reason for Consult: Bradycardia. Unresponsive episode. Message sent. Time Notified: 14:30 Call Completed: Yes Anticipated date of discharge: 01/19/18 - Constitutional Vitals: Temp Pulse Resp BP Pulse Ox 98.2 F 76 18 135/65 97 01/19/18 11:16 01/19/18 11:16 01/19/18 11:16 01/19/18 11:16 01/19/18 11:16 Exam: General: Pleasant without distress HEENT: Head atraumatic, normocephalic, EOMI, PERRL, neck nontender to palpation , absent lymphadenopathy, Moist Mucous Membranes, Heart: Sinus bradycardia Lungs: Clear to auscultation bilaterally Abdomen: Soft nontender, nondistended positive bowel sounds Skin: warm and dry, absent rash Extremities: Absent pedal edema, Neuro: Cranial nerves II through XII intact, UE and LE sensation equal bilaterally, UE and LEstrength 5/5, alert oriented 3, Vascular: Pedal and radial pulses 2 out of 4 - Patient Status Disposition: Home, Self-Care Condition: Good Functional capacity at discharge: independent ambulation Overall status at discharge: patient is back to baseline - Discharge Instructions Follow Up With: Arcenio Rivera Jr, MD [Primary Care Provider] - Additional Instructions: do not drive until you are cleared by your PCP - Diet and Activity Diet: diabetic diet
--- NOTE | 2018-01-19 14:52 | Event Note ---
Date of Encounter: 01/19/18 Time of Encounter: 14:50 I discontinue metoprolol on the patient discharge ppaer, but unalbe to correct in the computer. Patient is instructed not to take metoprolol, metoprolol is crossed over from her medication list. not to drive until cleared by PCP
--- NOTE | 2018-01-21 11:43 | Electrocardiograph Report ---
[place] [id number] Test Date: 2018-01-18 Pat Name: Uyen Hunter Department: EXAM22 Room: 2N11 Gender: F Automatic Maintainer: : [id number] Requested By: Cherelle Magdaleno Order Number: [id number] Reading MD: Rafi Sotelo Measurements Intervals [place] Rate: 40 P: MD: QRS: 19 QRSD: 120 T: 54 QT: 626 QTc: 511 Interpretive Statements Sinus rhythm IVCD Baseline artifact, consider repeat ECG Electronically Signed On 01-21-2018 11:41:35 EDT by Rafi Sotelo
--- NOTE | 2018-01-21 11:44 | Electrocardiograph Report ---
[place] [id number] Test Date: 2018-01-18 Pat Name: Uyen Hunter Department: EXAM22 Room: 2N11 Gender: F Cracking Unit Operator: : 1955 Requested By: Cherelle Magdaleno Order Number: [id number] Reading MD: Rafi Sotelo Measurements Intervals [place] Rate: 40 P: 30 [place]: 176 QRS: 19 QRSD: 103 T: 51 QT: 632 QTc: 516 Interpretive Statements Sinus bradycardia Possible left atrial enlargement Nonspecific ST-T changes Prolonged QT interval Electronically Signed On 01-21-2018 11:42:58 EDT by Rafi Sotelo
== END 2018-01-19 17:40 | disposition home or self-care (01) | DRG 310 ==
LOC: EMEROOARM 00:08 → 2NNU 00:08 → SUATTDRO 05:04
PROVIDERS: ADMIT Family Medicine; ATTEND Hospitalist

== ENCOUNTER 2018-02-21 04:52 | Inpatient (IN) ==
[2018-02-21] MEDS ORDERED: *HR* Dextrose 50 % in Water (Syg) 50 ML SYRINGE IVP PRN ×3 (04:55→16:09)
--- NOTE | 2018-02-21 05:02 | Emergency Department Note ---
Disposition Clinical Impression: Dehydration, Hyperglycemia Disposition: Admitted As Inpatient Condition: Fair Forms: ED Satisfaction Letter, Work/School Release Time of Disposition: 06:43 General Adult HPI - General Stated complaint: hyperglycemia Time Seen by Provider: 02/21/18 04:55 - Related Data Home Medications Medication Instructions Recorded Confirmed Aspirin Enteric Coated [Aspirin EC] 81 mg PO QAM 02/05/15 01/18/18 Insulin Glargine,Hum.rec.anlog 30 - 35 unit SQ QPM 02/05/15 01/18/18 [Lantus Solostar] FLUoxetine HCl [Prozac] 20 mg PO DAILY 04/02/16 01/18/18 Amlodipine Besylate 10 mg PO DAILY 01/18/18 01/18/18 Lisinopril [Zestril] 40 mg PO DAILY 01/18/18 01/18/18 Metoprolol [Lopressor] 50 mg PO BID 01/18/18 01/18/18 Previous Rx's Medication Instructions Recorded Acetaminophen [Tylenol] 650 mg PO Q6HR PRN #0 tablet 12/21/15 Insulin ASPART [Novolog Flexpen] 25 - 30 unit SQ TIDWM #0 01/19/18 Allergies Allergy/AdvReac Type Severity Reaction Status Date / Time Penicillins Allergy Rash Verified 01/18/18 08:06 Past Medical History - Past Medical History Medical history: Reports: diabetes, hypertension, kidney stones Surgical history: Reports: cholecystectomy, hysterectomy, other Psychiatric history: Reports: anxiety, depression STRATEGY ANALYST history: Reports: no STRATEGY ANALYST history - Social History Smoking Status: Never smoker Smokeless Tobacco Status: No Alcohol use: Reports: none Drug use: Reports: none Course Vital Signs Temperature 98.2 F 02/21/18 04:58 Pulse Rate 60 02/21/18 04:58 Respiratory Rate 18 02/21/18 04:58 Blood Pressure 118/61 02/21/18 04:58 O2 Sat by Pulse Oximetry 100 02/21/18 04:58 Temperature 98.2 F 02/21/18 04:58 Pulse Rate 63 02/21/18 06:28 Respiratory Rate 20 02/21/18 06:28 Blood Pressure 104/45 02/21/18 06:28 O2 Sat by Pulse Oximetry 100 02/21/18 06:28 Oxygen Delivery Oxygen Delivery Room Air Medical Decision Making - Lab Data Result diagrams: 02/21/18 05:36 02/21/18 05:36 Lab Results 02/21/18 02/21/18 02/21/18 Range/Units 05:36 05:36 05:36 WBC 10.8 (4.3-11.1) K/mcL RBC 4.13 (3.82-4.97) M/mcL Hgb 12.6 (11.5-15.4) g/dL Hct 35.5 (35.3-44.9) % MCV 86.0 (83.0-100.0) fL MCH 30.5 (28.0-33.3) pg MCHC 35.5 (31.6-35.5) g/dL RDW 13.2 (11.5-14.5) % Plt Count 250 (140-400) K/mcL MPV 11.2 (9.4-12.4) fL Immature Gran % 0.4 (0-4) % Seg Neutrophils % 80.6 % Lymphocytes % 15.7 % Monocytes % 2.6 % Eosinophils % 0.1 % Basophils % 0.6 % Neutrophils # 8.7 (1.6-8.9) K/mcL Lymphocytes # 1.7 (0.6-4.6) K/mcL Monocytes # 0.3 (0.0-1.3) K/mcL Eosinophils # 0.0 (0.0-0.6) K/mcL Basophils # 0.1 (0.0-0.2) K/mcL VBG pH (7.32-7.42) pH Units VBG pCO2 (41-51) mmHg VBG pO2 (25-50) mmHg VBG HCO3 (21-27) mEq/L Sodium 134 L (136-145) mEq/L Potassium 3.2 L (3.5-5.1) mEq/L Chloride 83 L (98-107) mEq/L Carbon Dioxide 23 (23-29) mEq/L BUN 28 H (8-23) mg/dL Creatinine 1.20 (0.60-1.20) mg/dL Est GFR ( Amer) 55 L (> 60) Est GFR (Non-Af Amer) 45 L (> 60) BUN/Creatinine Ratio 23 (6-26) Glucose 819 H* (70-105) mg/dL Calculated Osmolality 324 H (280-300) Lactic Acid (0.5-2.2) mmol/L Calcium 9.2 (8.6-10.3) mg/dL Magnesium 1.9 (1.6-2.6) mg/dL Total Bilirubin 0.5 (0.3-1.0) mg/dL AST 10 L (13-39) Units/L ALT 11 (7-52) Units/L Alkaline Phosphatase 73 (34-104) Units/L Troponin I < 0.03 (< 0.04) ng/mL Serum Total Protein 5.8 L (6.4-8.9) g/dL Albumin 3.6 (3.5-5.7) g/dL Globulin 2.2 L (2.4-3.5) g/dL Albumin/Globulin Ratio 1.6 (1.1-2.2) Beta-Hydroxybutyric Acd > 2.00 H (0.02-0.27) mmol/L Urine Color (Yellow) Urine Clarity (Clear) Urine pH (5.0-8.0) pH Units Ur Specific [place] (1.010-1.025) Urine Protein (Neg-Trace) mg/dL Urine Glucose (UA) (Normal) mg/dL Urine Ketones (Negative) mg/dL Urine Blood (Negative) Urine Nitrite (Negative) Urine Bilirubin (Negative) Urine Urobilinogen (Normal) mg/dL Ur Leukocyte Esterase (Negative) Urine Microscopic RBC (0-3) per hpf Urine Microscopic WBC (0-3) per hpf Ur Squamous Epith Cells (None-Few) per lpf Urine Bacteria (None-Few) per hpf Hyaline Casts (None-Few) per lpf Ur Culture Indicated? (NO) 02/21/18 02/21/18 02/21/18 Range/Units 05:48 05:53 05:55 WBC (4.3-11.1) K/mcL RBC (3.82-4.97) M/mcL Hgb (11.5-15.4) g/dL Hct (35.3-44.9) % MCV (83.0-100.0) fL MCH (28.0-33.3) pg MCHC (31.6-35.5) g/dL RDW (11.5-14.5) % Plt Count (140-400) K/mcL MPV (9.4-12.4) fL Immature Gran % (0-4) % Seg Neutrophils % % Lymphocytes % % Monocytes % % Eosinophils % % Basophils % % Neutrophils # (1.6-8.9) K/mcL Lymphocytes # (0.6-4.6) K/mcL Monocytes # (0.0-1.3) K/mcL Eosinophils # (0.0-0.6) K/mcL Basophils # (0.0-0.2) K/mcL VBG pH 7.50 H (7.32-7.42) pH Units VBG pCO2 37 L (41-51) mmHg VBG pO2 51 H (25-50) mmHg VBG HCO3 29 H (21-27) mEq/L Sodium (136-145) mEq/L Potassium (3.5-5.1) mEq/L Chloride (98-107) mEq/L Carbon Dioxide (23-29) mEq/L BUN (8-23) mg/dL Creatinine (0.60-1.20) mg/dL Est GFR ( Amer) (> 60) Est GFR (Non-Af Amer) (> 60) BUN/Creatinine Ratio (6-26) Glucose (70-105) mg/dL Calculated Osmolality (280-300) Lactic Acid 3.9 H (0.5-2.2) mmol/L Calcium (8.6-10.3) mg/dL Magnesium (1.6-2.6) mg/dL Total Bilirubin (0.3-1.0) mg/dL AST (13-39) Units/L ALT (7-52) Units/L Alkaline Phosphatase (34-104) Units/L Troponin I (< 0.04) ng/mL Serum Total Protein (6.4-8.9) g/dL Albumin (3.5-5.7) g/dL Globulin (2.4-3.5) g/dL Albumin/Globulin Ratio (1.1-2.2) Beta-Hydroxybutyric Acd (0.02-0.27) mmol/L Urine Color Yellow (Yellow) Urine Clarity Cloudy A (Clear) Urine pH 6.0 (5.0-8.0) pH Units Ur Specific [place] 1.018 (1.010-1.025) Urine Protein Negative (Neg-Trace) mg/dL Urine Glucose (UA) >=1000 H (Normal) mg/dL Urine Ketones 80 H (Negative) mg/dL Urine Blood Negative (Negative) Urine Nitrite Negative (Negative) Urine Bilirubin Negative (Negative) Urine Urobilinogen Normal (Normal) mg/dL Ur Leukocyte Esterase Small H (Negative) Urine Microscopic RBC 0-3 (0-3) per hpf Urine Microscopic WBC 15-30 H (0-3) per hpf Ur Squamous Epith Cells Few (None-Few) per lpf Urine Bacteria Many H (None-Few) per hpf Hyaline Casts None Seen (None-Few) per lpf Ur Culture Indicated? YES A (NO) Critical Care Time Critical Care Time: Yes Total Critical Care Time: 40 Attestation: Critical care performed: Time is exclusive of separately billable procedures. Time includes: direct patient care, patient reassessment, coordination of patient care, interpretation of data (laboratory data, radiology data, and respiratory data), review of patient's medical records, medical consultation and documentation of patient care. Procedures included in critical care time: Procedures excluded from critical care time: Attestation Statement - Attestation Attestation: I examined this patient and my medical decision-making was reviewed with the Resident Physician. I agree with the documented findings, disposition and treatment plan as described except to the extent set forth below. Patient presents to the ED with concern for DKA. Patient is an insulin- dependent diabetic. States her blood sugars up and running high. Patient denies any fever cough vomiting or diarrhea. She states she has been taking her insulin sliding scale. Patient states she was admitted a few weeks ago for the same. On exam she is in no distress. Alert and oriented. Dry mucous membranes. Plan. DKA workup. Patient received 2 L of fluid. PH normal. Large ketones. Blood sugar in the 800s. Started on an insulin drip. Admitted to medicine.
--- NOTE | 2018-02-21 05:14 | Emergency Department Note ---
Disposition Clinical Impression: Dehydration, Hyperglycemia DKA (diabetic ketoacidoses) Qualifiers: Diabetes mellitus type: type 1 Diabetes mellitus complication detail: without coma Qualified Code(s): E10.10 - Type 1 diabetes mellitus with ketoacidosis without coma Disposition: Admitted As Inpatient Condition: Undetermined Referrals: Arcenio Rivera Jr, MD [Primary Care Provider] - Forms: Work/School Release, ED Satisfaction Letter Time of Disposition: 06:45 General Adult HPI - General Chief complaint: ED General Medical Stated complaint: hyperglycemia Time Seen by Provider: 02/21/18 04:55 Source: patient, EMS Mode of arrival: EMS Limitations: no limitations Nursing Notes Reviewed: Yes Vital Signs Reviewed: Yes - History of Present Illness HPI Narrative: 63-year-old female diabetic arrives to the emergency department with complaint of hyperglycemia. The patient states that she has not felt well over the past 24-48 hours. She has had some associated nausea and mild abdominal discomfort as well as some intermittent episodes of diarrhea. The patient states this feels very similar to previous DKA in the past. Patient also states that she that she is developing an upper respiratory infection. The patient states that he typically any infection will throw her into DKA. Patient was in DKA roughly 1.5 months ago. Patient denies any other complaints. She is otherwise resting comfortably in the room with dry mucous members on examination. She denies any chest pain, difficulty breathing, fevers, chills. Pain Scale: 0 - Related Data Home Medications Medication Instructions Recorded Confirmed Aspirin Enteric Coated [Aspirin EC] 81 mg PO QAM 02/05/15 01/18/18 Insulin Glargine,Hum.rec.anlog 30 - 35 unit SQ QPM 02/05/15 01/18/18 [Lantus Solostar] FLUoxetine HCl [Prozac] 20 mg PO DAILY 04/02/16 01/18/18 Amlodipine Besylate 10 mg PO DAILY 01/18/18 01/18/18 Lisinopril [Zestril] 40 mg PO DAILY 01/18/18 01/18/18 Metoprolol [Lopressor] 50 mg PO BID 01/18/18 01/18/18 Previous Rx's Medication Instructions Recorded Acetaminophen [Tylenol] 650 mg PO Q6HR PRN #0 tablet 12/21/15 Insulin ASPART [Novolog Flexpen] 25 - 30 unit SQ TIDWM #0 01/19/18 Allergies Allergy/AdvReac Type Severity Reaction Status Date / Time Penicillins Allergy Rash Verified 01/18/18 08:06 All systems ED: reviewed and negative except as stated. Constitutional: Denies: fever, chills, weakness Eyes: Denies: vision change ENT ED: Reports: congestion. Denies: throat pain, dental pain Cardiovascular: Denies: chest pain Respiratory: Denies: dyspnea Gastrointestinal: Reports: abdominal pain, nausea, diarrhea. Denies: vomiting, constipation, hematemesis, melena, hematochezia Genitourinary: Denies: urgency, dysuria Musculoskeletal: Denies: back pain, neck pain, arthralgia, myalgia Integumentary: Denies: rash Neurological: Denies: headache, confusion Past Medical History - Past Medical History Attestation: Yes The following information was validated with the patient. Source: patient, old records reviewed Medical history: Reports: diabetes, hypertension, kidney stones Surgical history: Reports: cholecystectomy, hysterectomy, other Psychiatric history: Reports: anxiety, depression ENVIRONMENTAL ADVISOR history: Reports: no ENVIRONMENTAL ADVISOR history - Social History Smoking Status: Never smoker Smokeless Tobacco Status: No Alcohol use: Reports: none Drug use: Reports: none Physical Exam - General Limitations: no limitations General appearance: alert, in no apparent distress - Head Head exam: atraumatic, normocephalic, normal inspection - Eye Eye exam: Present: normal appearance, PERRL, EOMI - ENT ENT exam: normal exam, normal oropharynx, mucous membranes dry - Neck Neck exam: Present: normal inspection, full ROM, trachea midline - Chest Chest inspection: Present: normal inspection, symmetric chest wall rise - Respiratory Respiratory exam: Present: normal lung sounds bilaterally - Cardiovascular Cardiovascular exam: Present: regular rate, normal rhythm, normal heart sounds - Abdominal Exam Abdominal exam: Present: soft, Non-Tender. Absent: tenderness, distention, guarding, rebound, rigidity, heel tap sign, pulsatile mass - Extremities Exam Extremities exam: Present: normal inspection, full ROM. Absent: tenderness, pedal edema - Neurological Exam Neurological exam: Present: alert, oriented X3 - Skin Skin exam: Present: warm, dry, intact, normal color Course Vital Signs Temperature 98.2 F 02/21/18 04:58 Pulse Rate 60 02/21/18 04:58 Respiratory Rate 18 02/21/18 04:58 Blood Pressure 118/61 02/21/18 04:58 O2 Sat by Pulse Oximetry 100 02/21/18 04:58 Temperature 98.2 F 02/21/18 04:58 Pulse Rate 63 02/21/18 06:28 Respiratory Rate 20 02/21/18 06:28 Blood Pressure 104/45 02/21/18 06:28 O2 Sat by Pulse Oximetry 100 02/21/18 06:28 Oxygen Delivery Oxygen Delivery Room Air Medical Decision Making - MDM Narrative Medical decision making narrative: Patient's workup in the emergency department demonstrates findings concerning for possible DKA. The patient is not acidotic however, but the patient does have hyperglycemia and has ketones greater than 2. The patient's symptoms primarily consistent with upper respiratory infection. The patient was given 3 L of IV fluids here in the emergency department as well as placed an insulin drip at 0.1 units per hour. In addition the patient was administered potassium given the patient's potassium 3.2. The patient will be admitted to the hospital at this time. Patient was accepted by Dr. Aguilar. - Lab Data Lab results reviewed: Yes I reviewed the patient's lab results. Result diagrams: 02/21/18 05:36 02/21/18 05:36 Lab Results 02/21/18 02/21/18 02/21/18 Range/Units 05:36 05:36 05:36 WBC 10.8 (4.3-11.1) K/mcL RBC 4.13 (3.82-4.97) M/mcL Hgb 12.6 (11.5-15.4) g/dL Hct 35.5 (35.3-44.9) % MCV 86.0 (83.0-100.0) fL MCH 30.5 (28.0-33.3) pg MCHC 35.5 (31.6-35.5) g/dL RDW 13.2 (11.5-14.5) % Plt Count 250 (140-400) K/mcL MPV 11.2 (9.4-12.4) fL Immature Gran % 0.4 (0-4) % Seg Neutrophils % 80.6 % Lymphocytes % 15.7 % Monocytes % 2.6 % Eosinophils % 0.1 % Basophils % 0.6 % Neutrophils # 8.7 (1.6-8.9) K/mcL Lymphocytes # 1.7 (0.6-4.6) K/mcL Monocytes # 0.3 (0.0-1.3) K/mcL Eosinophils # 0.0 (0.0-0.6) K/mcL Basophils # 0.1 (0.0-0.2) K/mcL VBG pH (7.32-7.42) pH Units VBG pCO2 (41-51) mmHg VBG pO2 (25-50) mmHg VBG HCO3 (21-27) mEq/L Sodium 134 L (136-145) mEq/L Potassium 3.2 L (3.5-5.1) mEq/L Chloride 83 L (98-107) mEq/L Carbon Dioxide 23 (23-29) mEq/L BUN 28 H (8-23) mg/dL Creatinine 1.20 (0.60-1.20) mg/dL Est GFR ( Amer) 55 L (> 60) Est GFR (Non-Af Amer) 45 L (> 60) BUN/Creatinine Ratio 23 (6-26) Glucose 819 H* (70-105) mg/dL Calculated Osmolality 324 H (280-300) Lactic Acid (0.5-2.2) mmol/L Calcium 9.2 (8.6-10.3) mg/dL Magnesium 1.9 (1.6-2.6) mg/dL Total Bilirubin 0.5 (0.3-1.0) mg/dL AST 10 L (13-39) Units/L ALT 11 (7-52) Units/L Alkaline Phosphatase 73 (34-104) Units/L Troponin I < 0.03 (< 0.04) ng/mL Serum Total Protein 5.8 L (6.4-8.9) g/dL Albumin 3.6 (3.5-5.7) g/dL Globulin 2.2 L (2.4-3.5) g/dL Albumin/Globulin Ratio 1.6 (1.1-2.2) Beta-Hydroxybutyric Acd > 2.00 H (0.02-0.27) mmol/L Urine Color (Yellow) Urine Clarity (Clear) Urine pH (5.0-8.0) pH Units Ur Specific [place] (1.010-1.025) Urine Protein (Neg-Trace) mg/dL Urine Glucose (UA) (Normal) mg/dL Urine Ketones (Negative) mg/dL Urine Blood (Negative) Urine Nitrite (Negative) Urine Bilirubin (Negative) Urine Urobilinogen (Normal) mg/dL Ur Leukocyte Esterase (Negative) Urine Microscopic RBC (0-3) per hpf Urine Microscopic WBC (0-3) per hpf Ur Squamous Epith Cells (None-Few) per lpf Urine Bacteria (None-Few) per hpf Hyaline Casts (None-Few) per lpf Ur Culture Indicated? (NO) 02/21/18 02/21/18 02/21/18 Range/Units 05:48 05:53 05:55 WBC (4.3-11.1) K/mcL RBC (3.82-4.97) M/mcL Hgb (11.5-15.4) g/dL Hct (35.3-44.9) % MCV (83.0-100.0) fL MCH (28.0-33.3) pg MCHC (31.6-35.5) g/dL RDW (11.5-14.5) % Plt Count (140-400) K/mcL MPV (9.4-12.4) fL Immature Gran % (0-4) % Seg Neutrophils % % Lymphocytes % % Monocytes % % Eosinophils % % Basophils % % Neutrophils # (1.6-8.9) K/mcL Lymphocytes # (0.6-4.6) K/mcL Monocytes # (0.0-1.3) K/mcL Eosinophils # (0.0-0.6) K/mcL Basophils # (0.0-0.2) K/mcL VBG pH 7.50 H (7.32-7.42) pH Units VBG pCO2 37 L (41-51) mmHg VBG pO2 51 H (25-50) mmHg VBG HCO3 29 H (21-27) mEq/L Sodium (136-145) mEq/L Potassium (3.5-5.1) mEq/L Chloride (98-107) mEq/L Carbon Dioxide (23-29) mEq/L BUN (8-23) mg/dL Creatinine (0.60-1.20) mg/dL Est GFR ( Amer) (> 60) Est GFR (Non-Af Amer) (> 60) BUN/Creatinine Ratio (6-26) Glucose (70-105) mg/dL Calculated Osmolality (280-300) Lactic Acid 3.9 H (0.5-2.2) mmol/L Calcium (8.6-10.3) mg/dL Magnesium (1.6-2.6) mg/dL Total Bilirubin (0.3-1.0) mg/dL AST (13-39) Units/L ALT (7-52) Units/L Alkaline Phosphatase (34-104) Units/L Troponin I (< 0.04) ng/mL Serum Total Protein (6.4-8.9) g/dL Albumin (3.5-5.7) g/dL Globulin (2.4-3.5) g/dL Albumin/Globulin Ratio (1.1-2.2) Beta-Hydroxybutyric Acd (0.02-0.27) mmol/L Urine Color Yellow (Yellow) Urine Clarity Cloudy A (Clear) Urine pH 6.0 (5.0-8.0) pH Units Ur Specific [place] 1.018 (1.010-1.025) Urine Protein Negative (Neg-Trace) mg/dL Urine Glucose (UA) >=1000 H (Normal) mg/dL Urine Ketones 80 H (Negative) mg/dL Urine Blood Negative (Negative) Urine Nitrite Negative (Negative) Urine Bilirubin Negative (Negative) Urine Urobilinogen Normal (Normal) mg/dL Ur Leukocyte Esterase Small H (Negative) Urine Microscopic RBC 0-3 (0-3) per hpf Urine Microscopic WBC 15-30 H (0-3) per hpf Ur Squamous Epith Cells Few (None-Few) per lpf Urine Bacteria Many H (None-Few) per hpf Hyaline Casts None Seen (None-Few) per lpf Ur Culture Indicated? YES A (NO) - EKG Data EKG #1 EKG attestation: Yes I reviewed and interpreted this EKG. EKG results narrative: Heart rate 59 beats for minute. Normal sinus rhythm. No ST elevation but mild ST depression noted in leads 1, 2, 3, aVF, V3, V4, V5. There is mild ST depression noted on previous EKG from 01/19/2018 but it is slightly more pronounced today.
[2018-02-21] MEDS: 0.9 % Sodium Chloride 1,000 ML IVC SCH ×2 (05:44→06:59)
[2018-02-21 05:56] LABS: Basophils # 0.1 K/mcL (0.0-0.2); Basophils % 0.6 %; Eosinophils % 0.1 %; Hematocrit 35.5 % (35.3-44.9); Hemoglobin 12.6 g/dL (11.5-15.4); Immature Granulocytes % 0.4 % (0-4); Lymphocytes # 1.7 K/mcL (0.6-4.6); Lymphocytes % 15.7 %; Mean Corpuscular HGB Conc 35.5 g/dL (31.6-35.5); Mean Corpuscular Hemoglobin 30.5 pg (28.0-33.3); Mean Platelet Volume 11.2 fL (9.4-12.4); Monocytes # 0.3 K/mcL (0.0-1.3); Monocytes % 2.6 %; Neutrophils # 8.7 K/mcL (1.6-8.9); Platelet Count 250 K/mcL (140-400); Red Blood Count 4.13 M/mcL (3.82-4.97); Red Cell Distribution Width 13.2 % (11.5-14.5); Segmented Neutrophils % 80.6 %
[2018-02-21 05:57] LABS: VBG HCO3 29 mEq/L (21-27); VBG PCO2 37 mmHg (41-51); VBG PO2 51 mmHg (25-50)
[2018-02-21 06:07] LABS: Bilirubin,Urine Negative (Negative); Blood,Urine Negative (Negative); Clarity,Urine Cloudy (Clear); Color,Urine Yellow (Yellow); Glucose,Urine (UA) >=1000 mg/dL (Normal); Ketones,Urine 80 mg/dL (Negative); Leukocyte Esterase,Urine Small (Negative); Nitrite,Urine Negative (Negative); Protein,Urine Negative (Neg-Trace); Specific Gravity,Urine 1.018 (1.010-1.025); Urobilinogen,Urine Normal (Normal)
[2018-02-21 06:09] LABS: Troponin I < 0.03 ng/mL (< 0.04)
[2018-02-21] MEDS ORDERED: Ondansetron 4 MG/2 ML VIAL IVP ONE (06:09)
[2018-02-21] MEDS ORDERED: Ondansetron 4 MG/2 ML VIAL ONE (06:10)
[2018-02-21 06:20] LABS: Bacteria,Urine Many per hpf (None-Few); Hyaline Casts,Urine None Seen per lpf (None-Few); RBC,Urine 0-3 per hpf (0-3); Squamous Epithelial Cell,Urine Few per lpf (None-Few); WBC,Urine 15-30 per hpf (0-3)
[2018-02-21 06:31] LABS: Alanine Aminotransferase 11 Units/L (7-52); Albumin 3.6 g/dL (3.5-5.7); Albumin/Globulin Ratio 1.6 (1.1-2.2); Alkaline Phosphatase 73 Units/L (34-104); Aspartate Amino Transferase 10 Units/L (13-39); BUN/Creatinine Ratio 23 (6-26); Bilirubin,Total 0.5 mg/dL (0.3-1.0); Blood Urea Nitrogen 28 mg/dL (8-23); Calcium 9.2 mg/dL (8.6-10.3); Carbon Dioxide 23 mEq/L (23-29); Chloride 83 mEq/L (98-107); Globulin 2.2 g/dL (2.4-3.5); Glucose 819 mg/dL (70-105); Magnesium 1.9 mg/dL (1.6-2.6); Osmolality,Calculated 324 (280-300); Potassium 3.2 mEq/L (3.5-5.1); Sodium 134 mEq/L (136-145); Total Protein 5.8 g/dL (6.4-8.9); eGFR For Non-African Americans 45 (> 60)
[2018-02-21] MEDS ORDERED: 0.9 % Sodium Chloride 1,000 ML IVC ONE (06:36)
[2018-02-21] MEDS: Insulin Human Regular 100 UNIT in 0.9 % Sodium Chloride 100 ML IVC SCH (07:00)
[2018-02-21] MEDS ORDERED: D5% in 0.45% NACL 1,000 ML IVC PRN (07:25)
[2018-02-21] MEDS ORDERED: D5% in 0.45% NACL w KCl 20 MEQ/1,000 ML MLS IVC PRN (07:25)
[2018-02-21] MEDS ORDERED: Insulin Regular, Human 100 UNIT/ML IV PRN (07:25)
[2018-02-21] MEDS ORDERED: cefTRIAXone 1,000 MG in 0.9 % Sodium Chloride Mini Bag 100 ML IVPB SCH (08:00)
--- NOTE | 2018-02-21 09:07 | Electrocardiograph Report ---
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
--- NOTE | 2018-02-21 09:19 | Internal Med History&Physical ---
Date of Encounter: 02/21/18 Time of Encounter: 09:17 Internal Medicine - H&P: HPI Chief complaint: High blood sugars Admitted From: Emergency Dept Plans for Post Hospital Care: Home History of present illness: Ms. Hunter is a 63 year old female patient with type 1 diabetes who presented to the ER with complaints of high blood sugars. Patient notices that her sugars have been running high for the past 2-3 days. She recently had a bout of cold/congestion and she reports that every time she has an infection her sugars tend to go up high. She reports being compliant with her insulin regimen and not changing her diet recently. Last week, her sugars had been much better. She denies any fevers or chills. She reports mild dysuria. No hematuria. No abdominal pain. No nausea or vomiting. She stills feels weak and tired. She denies any cough or sputum production at this time. She feels that her cold/congestion has resolved. Past Med Surg Social Fam HX - Past Medical History Attestation: Yes The following information was validated with the patient. Source: patient, old records reviewed Medical history: diabetes, hypertension, kidney stones Psychiatric history: anxiety, depression - Past Surgical History Surgical History: cholecystectomy, hysterectomy, other Additional surgical history: RIGHT NEPHRECTOMY - Social History Smoking Status: Never smoker Smokeless Tobacco Status: No Alcohol use: none Drug use: none - Family History Mother Living Status: Hx Family Cardiac Disorders: Yes Hx Family Respiratory Disorders: No Hx Family Cancer: No Hx Family GI Disorders: No Hx Family Endocrine Disorder: Yes Hx Family Neuromuscular Disorders: No Hx Family Neurologic Disorders: No Hx Family HEENT Disorders: No Hx Family Autoimmune Disorders: No Internal Medicine - H&P: Meds Aspirin Enteric Coated [Aspirin EC] 81 mg PO QAM 02/05/15 [History] Acetaminophen [Tylenol] 650 mg PO Q6HR PRN #0 tablet 12/21/15 [Rx] FLUoxetine HCl [Prozac] 20 mg PO DAILY 04/02/16 [History] Metoprolol [Lopressor] 50 mg PO BID 01/18/18 [History] Insulin ASPART [Novolog Flexpen] 25 - 30 unit SQ TIDWM #0 01/19/18 [Rx] Insulin Glargine,Hum.rec.anlog [Basaglar Kwikpen U-100] 35 unit SQ DAILY [History] Quinapril/Hydrochlorothiazide [Quinapril-Hctz 20-12.5 mg Tab] 1 tab PO DAILY 09/05 [History] 3 Allergy/AdvReac Type Severity Reaction Status Date / Time Penicillins Allergy Rash Verified 01/18/18 08:06 All Systems PM: A 10-system review of systems was performed and is negative for pertinent findings except as documented above in the HPI. - Constitutional Constitutional: fatigue, malaise, no chills, no fever(s), no night sweats - EENT Eyes: no change in vision, no discharge, no pain, no photophobia Ears: no ear discharge, no ear pain, no tinnitus Nose, mouth and throat: no dysphagia, no nasal discharge, no neck pain, no sore throat - Cardiovascular Cardiovascular ROS IM: no chest pain, no diaphoresis, no dyspnea, no lightheadedness, no palpitations, no syncope - Respiratory Respiratory: no cough, no dyspnea, no wheezing, no excessive phlegm production - Gastrointestinal Gastrointestinal: no abdominal pain, no diarrhea, no hematemesis, no hematochezia, no melena, no nausea, no vomiting - Genitourinary Genitourinary: dysuria, no change in urinary stream, no flank pain, no hematuria - Musculoskeletal Musculoskeletal ROS IM: no numbness, no tingling - Integumentary Integumentary IM: no rash, no unusual bruising - Neurological Neurological ROS: no confusion, no convulsions, no focal weakness, no numbness, no tingling, no tremor(s) - Constitutional Vitals: Temp Pulse Resp BP Pulse Ox 98.2 F 69 18 147/119 99 02/21/18 04:58 02/21/18 07:14 02/21/18 07:14 02/21/18 07:14 02/21/18 07:14 General appearance: Present: cooperative, A&O X 3, pleasant, answers questions appropriately Exam: . - Respiratory Respiratory exam: Present: CTAB. Absent: accessory muscle use, rales, rhonchi, wheezes - Cardiovascular Cardiovascular exam: Present: RRR, +S1, +S2. Absent: diastolic murmur, gallop, rubs, systolic murmur - GI/Abdominal GI/Abdominal exam: Present: normal bowel sounds, soft, no peritoneal signs. Absent: distended, tenderness - Extremities Exam Extremities exam: Present: warm, radial pulses palpable and symmetrical. Absent : calf tenderness, cyanotic, pedal edema - Neurological Exam Neurological exam: Present: CN II-XII intact, oriented X3, no focal deficits. Absent: facial droop, speech deficit - Skin Skin exam: Present: dry, intact Internal Med - H&P Results - Labs CBC & Chem 7: 02/21/18 05:36 02/21/18 05:36 Labs: Short CBC 02/21/18 Range/Units 05:36 WBC 10.8 (4.3-11.1) K/mcL Hgb 12.6 (11.5-15.4) g/dL Hct 35.5 (35.3-44.9) % Plt Count 250 (140-400) K/mcL Neutrophils # 8.7 (1.6-8.9) K/mcL BMP 02/21/18 05:36 Sodium 134 L Potassium 3.2 L Chloride 83 L Carbon Dioxide 23 BUN 28 H Creatinine 1.20 Glucose 819 H* Calcium 9.2 Cardiac Enzymes 02/21/18 Range/Units 05:36 Troponin I < 0.03 (< 0.04) ng/mL Liver Function 02/21/18 Range/Units 05:36 Total Bilirubin 0.5 (0.3-1.0) mg/dL AST 10 L (13-39) Units/L ALT 11 (7-52) Units/L Alkaline Phosphatase 73 (34-104) Units/L Albumin 3.6 (3.5-5.7) g/dL Urine 02/21/18 Range/Units 05:48 Urine Color Yellow (Yellow) Urine Clarity Cloudy A (Clear) Urine pH 6.0 (5.0-8.0) pH Units Ur Specific [place] 1.018 (1.010-1.025) Urine Protein Negative (Neg-Trace) mg/dL Urine Glucose (UA) >=1000 H (Normal) mg/dL - ABG Interpretation ABG results: 02/21/18 05:53 VBG pH 7.50 H VBG pCO2 37 L VBG pO2 51 H VBG HCO3 29 H - Assessment and plan (1) Hyperglycemia Current Visit: Yes Status: Acute Assessment and plan: With hyperglycemic hyperosmolar state without coma. Will place patient on insulin drip per her chest is protocol. Not in DKA although she does have ketones in her blood. IV fluids. Monitor blood sugars closely. They have been brought upon by underlying UTI/recent episode of upper respiratory infection. Started on antibiotics. Follow urine culture results. (2) Type 1 diabetes mellitus Current Visit: Yes Status: Chronic Assessment and plan: Monitor blood sugars. For now patient will be on IV insulin drip. As her sugars trending down and her hyperosmolar hyperglycemic state resolves, she will be switched over to subcutaneous insulin. She will be nothing by mouth for now. Qualifiers: Diabetes mellitus complication status: with hyperglycemia Qualified Code(s) : E10.65 - Type 1 diabetes mellitus with hyperglycemia (3) Urinary tract infection Current Visit: Yes Status: Acute Assessment and plan: Urinalysis suggests possible UTI. Will treat empirically. Follow culture results. Qualifiers: Urinary tract infection type: acute cystitis Hematuria presence: without hematuria Qualified Code(s): N30.00 - Acute cystitis without hematuria (4) HTN (hypertension) Current Visit: Yes Status: Chronic Assessment and plan: Blood pressure is currently elevated. We will resume home medications. Monitor blood pressure and adjust antihypertensive regimen accordingly. Qualifiers: Hypertension type: essential hypertension Qualified Code(s): I10 - Essential (primary) hypertension - Time Spent With Patient Total time spent is greater than 50% in coordination of care (as documented) at patient's floor/unit and/or counseling patient:
[2018-02-21] MEDS ORDERED: Acetaminophen 325 MG TABLET PO PRN (09:20)
[2018-02-21] MEDS: 0.45 % Sodium Chloride w/KCl 20 MEQ/1,000 ML MLS IVC SCH ×2 (09:52→19:58)
[2018-02-21] MEDS: cefTRIAXone 1,000 MG in Water for inj. (sterile) 20 ML 10 ML IVP SCH (10:04)
[2018-02-21 11:36] LABS: BUN/Creatinine Ratio 24 (6-26); Blood Urea Nitrogen 26 mg/dL (8-23); Calcium 8.1 mg/dL (8.6-10.3); Carbon Dioxide 25 mEq/L (23-29); Chloride 97 mEq/L (98-107); Glucose 499 mg/dL (70-105); Osmolality,Calculated 317 (280-300); Potassium 3.1 mEq/L (3.5-5.1); Sodium 140 mEq/L (136-145); eGFR For Non-African Americans 52 (> 60)
[2018-02-21] MEDS: 0.9 % Sodium Chloride w KCl 20 MEQ/1,000 ML MLS IVC SCH ×2 (11:43→19:57)
[2018-02-21] MEDS ORDERED: Insulin DETEMIR 100 UNIT/ML X5UNITS SQ ONE (16:07)
[2018-02-21] MEDS ORDERED: D5% in Water 1,000 ML IVC PRN (16:09)
[2018-02-21] MEDS ORDERED: Dextrose Gel 15 GM/37.5 ML TUBE PO PRN ×2 (16:09)
[2018-02-21] MEDS: Insulin LISPRO 300 UNITS/3 ML VIAL SQ SCH ×2 (16:57→21:02)
[2018-02-21 17:19] LABS: BUN/Creatinine Ratio 25 (6-26); Blood Urea Nitrogen 23 mg/dL (8-23); Calcium 8.3 mg/dL (8.6-10.3); Carbon Dioxide 31 mEq/L (23-29); Chloride 103 mEq/L (98-107); Glucose 175 mg/dL (70-105); Osmolality,Calculated 300 (280-300); Potassium 3.3 mEq/L (3.5-5.1); Sodium 141 mEq/L (136-145); eGFR For Non-African Americans > 60 (> 60)
[2018-02-22] MEDS: Insulin Human Regular 100 UNIT in 0.9 % Sodium Chloride 100 ML IVC SCH (05:51)
[2018-02-22] MEDS: Insulin LISPRO 300 UNITS/3 ML VIAL SQ SCH ×4 (08:52→21:51)
[2018-02-22] MEDS: cefTRIAXone 1,000 MG in Water for inj. (sterile) 20 ML 10 ML IVP SCH (08:54)
[2018-02-22] MEDS: Aspirin Enteric Coated 81 MG Tablet PO SCH (08:55)
[2018-02-22] MEDS: FLUoxetine 20 MG CAPSULE PO SCH (08:55)
[2018-02-22] MEDS ORDERED: Lisinopril-HCTZ 20-12.5mg TABLET PO SCH (09:00)
--- NOTE | 2018-02-22 09:16 | Internal Med Progress Note ---
<Eugene Wilder - Last Filed: 02/22/18 14:20> Hospitalist Progress Note - Encounter Date of Encounter: 02/22/18 Time of Encounter: 09:14 - Subjective Interval History: Ms. Hunter reports doing well this morning. She has been eating without difficutly, no nausea or vomiting. Patient does report still having dysuria and has contiued thouhgout admission. Patient denies fevers, chills, sweats, nausea, vomiting, cheest pain, shortness ofbreath, cough, abdominal pain, changes in bowels, weakness, loss of sensaiton, or rash. - Exam Vitals: Temp Pulse Resp BP Pulse Ox 97.6 F 56 15 190/76 97 02/22/18 06:33 02/22/18 06:33 02/22/18 06:33 02/22/18 06:33 02/22/18 06:33 Exam: General: no acute distress, answers questions appropriately, alert and oriented HEENT: moist mucus membranes, no adenopathy CV: RRR, no murmrus Lungs: CTAB no wheezing, rhonchi, or rales Abd: soft, nontender, normal bowel sounds Ext: no cyanosis or edema Msk: Moves all etremities, strenght 5/5 . - Assessment and Plan (1) DKA (diabetic ketoacidoses) Current Visit: No Status: Acute Assessment and Plan: Patient met DKA criteria with ketones, anion gap of 28, hyperglycemia of 819 on arrival Likely secondary to acute infection, UTI Received insulin drip, fluids initially with improvement in hyperglycemia, gap closed and was given sq insulin and diet which has been tolerated. Resolved. Anion gap normal Glucose at 141 this morning -Continue with basal and sliding scale insulin -Continue monitoring blood sugars regularly -Diet: ADA diet (2) Urinary tract infection Current Visit: Yes Status: Acute Assessment and Plan: Dysuria prior to arrival, continues to have improving dysuria. UA with small leuk esterase, bacteria, and 15-30 WBC. Urine culture with gram negative fina -Continue d2 Rocephin -Continue following urine culture. (3) Type 1 diabetes mellitus Current Visit: Yes Status: Chronic Assessment and Plan: Known history of type I diabetes on insulin therapy and uncontrolled in 300s -Continue with insulin sliding scale and basal insulin -ADA diet -Follow up with PCP outpatient for additional management. (4) HTN (hypertension) Current Visit: Yes Status: Chronic Assessment and Plan: Known history of hypertension on home quinapril-hctz, reportedly controlled at 140s. Bp overnight 154-190/69-76 -Recheck bp later this afternoon -190s this AM before morning meds -Continue with lisinopril-hctz 20-12.5 (auto sub and equivalent to quinapril home dosing) -Still elevated at 190/80, hr 53, will increase to Lisinopril 40mg and HCTZ 25. Will continue to monitor labs. EKG with sinus bradycardia, avoid beta blockers. (5) Lactic acidemia Current Visit: Yes Status: Resolved Assessment and Plan: Lactic acid of 3.9 on arrival, 1.9 on recheck after 3L normal saline. (6) Hypokalemia Current Visit: Yes Status: Acute Assessment and Plan: Potassium of 3.1 this morning. Likely due to intrcellular shift of potassium with resolving DKA. -40mEq Potassium po ordered -Recheck this afternoon -Continue monitoring labs. (7) Abnormal EKG Current Visit: Yes Status: Chronic Assessment and Plan: EKG in ED, hr 59bpm, normal sinus Repeat EKG 02/22/18 sinus bradycardia, rate 50, inverted T in lead I, aVL, V5, V6. Corrected QT 371ms. Avoid AV cullen blockers/beta blockers. Avoid antibiotics such as fluoroquinolones known to cause increase in QT intervals. History of sinus annette, cc was syncope. Echo completed at that visit. EKG compared from that visit to this visit and no acute changes. Cardio saw patient as inpatient, follow up with Cardio as outpatient. DVT Prophylaxis: Encourage ambulation, patient declines pharmaceutical dvt ppx and epcds despite counseling. Patient is at low risk for dvt per history. - Time Spent with Patient Total time spent is greater than 50% in coordination of care (as documented) at patient's floor/unit and/or counseling patient: Internal Medicine: Result - Labs CBC & Chem 7: 02/21/18 05:36 02/22/18 08:54 Labs: BMP 02/21/18 16:51 Sodium 141 Potassium 3.3 L Chloride 103 Carbon Dioxide 31 H BUN 23 Creatinine 0.93 Glucose 175 H Calcium 8.3 L Consult Discharge Plan - Plan Referrals: Arcenio Rivera Jr, MD [Primary Care Provider] - 03/01/18 11:00 am <Barbara Mendez - Last Filed: 02/22/18 14:55> Hospitalist Progress Note - Encounter Date of Encounter: 02/22/18 - Exam Vitals: Temp Pulse Resp BP Pulse Ox 97.6 F 59 15 185/81 96 02/22/18 14:02 02/22/18 14:02 02/22/18 14:02 02/22/18 14:02 02/22/18 14:02 - Assessment and Plan (1) Urinary tract infection Current Visit: Yes Status: Acute (2) HTN (hypertension) Current Visit: Yes Status: Chronic (3) Type 1 diabetes mellitus Current Visit: Yes Status: Chronic (4) Hyperglycemia Current Visit: Yes Status: Acute - Time Spent with Patient Total time spent is greater than 50% in coordination of care (as documented) at patient's floor/unit and/or counseling patient: Internal Medicine: Result - Labs CBC & Chem 7: 02/21/18 05:36 02/22/18 08:54 Labs: BMP 02/21/18 02/22/18 16:51 08:54 Sodium 141 138 Potassium 3.3 L 3.1 L Chloride 103 101 Carbon Dioxide 31 H 31 H BUN 23 21 Creatinine 0.93 0.84 Glucose 175 H 141 H Calcium 8.3 L 8.2 L - Attending Attestation I examined this patient and my medical decision-making was reviewed with the Resident Physician Dr Wilder. I agree with the documented findings, disposition and treatment plan as described except to the extent set forth below /addl details below Ms Hunter was admitted with what acutally appears to be DKA which is a change in documentation for admission h&P, now resolved, likely caused by high home bs at baseline + UTI. Awake, feeling improved, no nausea, emesis, abd pain. denies fevers or chills, suprapubic tenderness of cva tenderness. + dysuria. tolerating oral diet at this time gen- alert, awake,appears stated age cv- reg rate and rhythm, normal s1,s2, no murmurs appreciated lungs- ctabl, no wheezing, rhonchi or crackles abd- soft, non tender, non distended, + bs neuro- AAOx3 DKA in Type I Diabetic, anion gap, elevated bhb, ketones in urine, bs 819 Likely as result of high bs at home + in setting of acute UTI -DKA resolved with insulin gtt and IVFs -cont basal and SSI- adjust as needed, currently bs 100s-200s with admit bs 800s Suspected UTI- ucx gnr- on rocephin htn- elevated bps above goal- increase acei to lisinopril 40 mg daily, increase hctz, dc BB as she has HR in the 50s,prn hydralazine will require outpt fu with pcp for further management prolonged qtc, ekg abnormality is unchanged from prior- avoid qtc prolonging abx at time of dc, follow up ekg ordered <Eugene Wilder - Last Filed: 02/22/18 14:20> (1) DKA (diabetic ketoacidoses) Qualifiers: Diabetes mellitus type: type 1 Diabetes mellitus complication detail: without coma Qualified Code(s): E10.10 - Type 1 diabetes mellitus with ketoacidosis without coma (2) Urinary tract infection Qualifiers: Urinary tract infection type: acute cystitis Hematuria presence: without hematuria Qualified Code(s): N30.00 - Acute cystitis without hematuria (3) Type 1 diabetes mellitus Qualifiers: Diabetes mellitus complication status: with hyperglycemia Qualified Code(s): E10.65 - Type 1 diabetes mellitus with hyperglycemia (4) HTN (hypertension) Qualifiers: Hypertension type: essential hypertension Qualified Code(s): I10 - Essential (primary) hypertension <Barbara Mendez - Last Filed: 02/22/18 14:55> (1) Urinary tract infection Qualifiers: Urinary tract infection type: acute cystitis Hematuria presence: without hematuria Qualified Code(s): N30.00 - Acute cystitis without hematuria (2) HTN (hypertension) Qualifiers: Hypertension type: essential hypertension Qualified Code(s): I10 - Essential (primary) hypertension (3) Type 1 diabetes mellitus Qualifiers: Diabetes mellitus complication status: with hyperglycemia Qualified Code(s): E10.65 - Type 1 diabetes mellitus with hyperglycemia
[2018-02-22 09:22] LABS: BUN/Creatinine Ratio 25 (6-26); Blood Urea Nitrogen 21 mg/dL (8-23); Calcium 8.2 mg/dL (8.6-10.3); Carbon Dioxide 31 mEq/L (23-29); Chloride 101 mEq/L (98-107); Glucose 141 mg/dL (70-105); Osmolality,Calculated 291 (280-300); Potassium 3.1 mEq/L (3.5-5.1); Sodium 138 mEq/L (136-145); eGFR For Non-African Americans > 60 (> 60)
[2018-02-22] MEDS ORDERED: Lisinopril 20 MG TABLET PO STA (13:06)
[2018-02-22] MEDS ORDERED: hydroCHLOROthiazide 25 MG TABLET PO ONE (14:53)
[2018-02-22] MEDS ORDERED: Insulin DETEMIR 100 UNIT/ML X5UNITS SQ SCH (21:00)
[2018-02-22] MEDS ORDERED: Fluconazole 100 MG TABLET PO ONE (21:45)
[2018-02-23] MEDS ORDERED: cloNIDine HCl 0.1 MG TABLET PO ONE (00:01)
[2018-02-23 01:31] LABS: Basophils # 0.1 K/mcL (0.0-0.2); Basophils % 1.1 %; Eosinophils # 0.1 K/mcL (0.0-0.6); Eosinophils % 2.2 %; Hematocrit 33.2 % (35.3-44.9); Hemoglobin 11.5 g/dL (11.5-15.4); Immature Granulocytes % 0.6 % (0-4); Lymphocytes # 2.3 K/mcL (0.6-4.6); Lymphocytes % 36.2 %; Mean Corpuscular HGB Conc 34.6 g/dL (31.6-35.5); Mean Corpuscular Hemoglobin 30.6 pg (28.0-33.3); Mean Corpuscular Volume 88.3 fL (83.0-100.0); Mean Platelet Volume 10.2 fL (9.4-12.4); Monocytes # 0.4 K/mcL (0.0-1.3); Monocytes % 6.6 %; Neutrophils # 3.3 K/mcL (1.6-8.9); Platelet Count 168 K/mcL (140-400); Red Blood Count 3.76 M/mcL (3.82-4.97); Red Cell Distribution Width 13.6 % (11.5-14.5); Segmented Neutrophils % 53.3 %
[2018-02-23 01:54] LABS: BUN/Creatinine Ratio 20 (6-26); Blood Urea Nitrogen 17 mg/dL (8-23); Calcium 8.7 mg/dL (8.6-10.3); Carbon Dioxide 27 mEq/L (23-29); Chloride 101 mEq/L (98-107); Glucose 256 mg/dL (70-105); Osmolality,Calculated 294 (280-300); Potassium 3.3 mEq/L (3.5-5.1); Sodium 137 mEq/L (136-145); eGFR For Non-African Americans > 60 (> 60)
[2018-02-23] MEDS ORDERED: hydroCHLOROthiazide 25 MG TABLET PO SCH (09:00)
[2018-02-23] MEDS ORDERED: Lisinopril 20 MG TABLET PO SCH (09:00)
[2018-02-23] MEDS: Insulin LISPRO 300 UNITS/3 ML VIAL SQ SCH ×2 (09:08→11:10)
[2018-02-23] MEDS: Aspirin Enteric Coated 81 MG Tablet PO SCH (09:09)
[2018-02-23] MEDS: FLUoxetine 20 MG CAPSULE PO SCH (09:09)
[2018-02-23] MEDS: cefTRIAXone 1,000 MG in Water for inj. (sterile) 20 ML 10 ML IVP SCH (09:09)
--- NOTE | 2018-02-23 10:22 | Discharge Summary ---
<Douglas Campbell - Last Filed: 02/23/18 11:32> - NOTES TO OUTPATIENT PROVIDER Notes to Outpatient Provider: Patient was admitted to hospital with complaint of high blood sugars. She noticed that they have been running high for 2-3 days previous to admission and was found to have meet criteria for DKA. Likely inciting factor was a found UTI. She received Rocephin while inpatient and Due to QT prolongation as seen on EKG, she will be discharged home with medication for Macrobid. Date of Encounter: 02/23/18 Time of Encounter: 10:18 - Discharge Diagnosis (1) DKA (diabetic ketoacidoses) Priority: Primary Status: Acute Qualifiers: Diabetes mellitus type: type 1 Diabetes mellitus complication detail: without coma Qualified Code(s): E10.10 - Type 1 diabetes mellitus with ketoacidosis without coma (2) Urinary tract infection Priority: Secondary Status: Acute Qualifiers: Urinary tract infection type: acute cystitis Hematuria presence: without hematuria Qualified Code(s): N30.00 - Acute cystitis without hematuria (3) HTN (hypertension) Priority: Secondary Status: Chronic Qualifiers: Hypertension type: essential hypertension Qualified Code(s): I10 - Essential (primary) hypertension (4) Type 1 diabetes mellitus Priority: Secondary Status: Chronic Qualifiers: Diabetes mellitus complication status: with hyperglycemia Qualified Code(s) : E10.65 - Type 1 diabetes mellitus with hyperglycemia (5) Hyperglycemia Priority: Secondary Status: Acute (6) Abnormal EKG Priority: Secondary Status: Chronic (7) Hypokalemia Priority: Secondary Status: Acute Hospital course: Ms. Hunter is a 63 year old female with past medical history of type 1 diabetes who presented to the emergency department with complaint of high blood sugars. She did admit that time to have a recent URI but states she has been compliant with her home insulin regimen she does follow closely with her primary care physician and is on both basal and sliding scale insulin. At time of admission, she did meet criteria for DKA with serum ketones, anion gap of 28 , hyperglycemia with blood sugar maximum of 819 on arrival. Likely inciting factor of recent URI versus UTI. Urinalysis did show positive leukocyte esterase and WBCs and urine culture obtained shows Citrobacter freundii. She was initially placed on insulin drip however was quickly discontinued due to anion gap closure and return to low blood sugars. Her UTI was treated with Rocephin. Vitals on presentation were within normal limits and laboratory results were significant for anion gap as above, blood sugars as above, potassium 3.2, pseudohyponatremia of 134, lactic acid 3.9, beta hydroxybutyric acid of greater than 2. During course of hospital stay, patient did gradually improve. Blood sugars have improved back to her baseline levels and she did have one episode of hypoglycemia in the morning of discharge at 40 however this has improved and patient is eager to return home. We did discuss the dangers of hypoglycemia including the importance of eating properly, checking her blood sugars, and we will decrease her basal insulin to 30 units. Patient states she does follow closely with her PCP for her blood sugars and will discuss further management with him. She was also noted to have a prolonged QT interval on EKG obtained emergency department. This was repeated and was consistent. We did discuss this with the patient and she will have this followed up as outpatient and antibiotic regimen was guided by this finding and she will be discharged home with a total of seven-day antibiotic therapy with Macrobid. Her vitals were within normal limits discharge and her lab results return back to baseline. We also did closely monitor her blood pressure while she was admitted as it did run high with a maximum reading of 200/89. We did increase her lisinopril and HCTZ however we also noted that she has not been receiving her home metoprolol while inpatient. Her blood pressure did come down with administration of medicines and on discharge it was 158/81. She will be instructed to take her home medications and monitor closely with her primary care physician. All questions were answered and she will be discharged home in stable medical condition. Discharge discussed with: patient, nurse - Time Spent with Patient Total time spent providing and/or coordinating discharge services: - Discharge Medications Prescriptions: Nitrofurantoin (BID) [Macrobid] 100 mg PO BID 4 Days #8 capsule Home Medications: Aspirin Enteric Coated [Aspirin EC] 81 mg PO QAM 02/05/15 [History] Acetaminophen [Tylenol] 650 mg PO Q6HR PRN #0 tablet 12/21/15 [Rx] FLUoxetine HCl [Prozac] 20 mg PO DAILY 04/02/16 [History] Metoprolol [Lopressor] 50 mg PO BID 01/18/18 [History] Insulin ASPART [Novolog Flexpen] 25 - 30 unit SQ TIDWM #0 01/19/18 [Rx] Quinapril/Hydrochlorothiazide [Quinapril-Hctz 20-12.5 mg Tab] 1 tab PO DAILY 09/05 [History] Insulin Glargine,Hum.rec.anlog [Basaglar Kwikpen U-100] 30 unit SQ DAILY #1 11/05 [Rx] Nitrofurantoin (BID) [Macrobid] 100 mg PO BID 4 Days #8 capsule 02/23/18 [Rx] Allergies/Adverse Reactions: 3 Allergy/AdvReac Type Severity Reaction Status Date / Time Penicillins Allergy Rash Verified 01/18/18 08:06 Date of admission: 02/22/18 15:15 Primary care physician: Arcenio Rivera Jr, MD Discharging clinician: Douglas Campbell Anticipated date of discharge: 02/23/18 - Constitutional Vitals: Temp Pulse Resp BP Pulse Ox 97.5 F L 84 16 200/89 98 02/23/18 07:03 02/23/18 07:03 02/23/18 07:03 02/23/18 07:03 02/23/18 07:03 General appearance: Present: cooperative, A&O X 3, pleasant, answers questions appropriately Exam: Gen.: Vitals noted. No acute distress. AAOx3, resting comfortably in bed HEENT: PERRL/EOMI, oropharynx clear, Normocephalic, atraumatic, MMM, poor dentition Cardiac: RRR, no murmur, +S1/S2 Pulmonary: CTA bilaterally, no wheezes, rales or rhonchi, equal chest expansion Abdomen: soft, nontender, BS noted, no guarding, no rebound. Extremities: no BLE edema, nontender calf, no cyanosis or clubbing Neuro: A&Ox3, moves all extremities, no focal deficits Psych: Appropriate mood and behavior - Patient Status Disposition: Home, Self-Care Condition: Good Functional capacity at discharge: independent ambulation Overall status at discharge: patient is progressing back to baseline - Discharge Instructions Follow Up With: Arcenio Rivera Jr, MD [Primary Care Provider] - 03/01/18 11:00 am Additional Instructions: Please follow up with her primary care physician and take all medications as prescribed. We did decrease her dose of basal insulin given her low blood sugar episode today. Please follow up with primary care physician for further management of her diabetes and complete her course of antibiotics. - Diet and Activity Activity: increase activity as tolerated, return to work once cleared by your PCP/specialist, resume usual activities as tolerated Diet: diabetic diet <ZcahcecilNellieBarbara bass - Last Filed: 02/23/18 12:31> Date of Encounter: 02/23/18 - Discharge Diagnosis (1) DKA (diabetic ketoacidoses) Status: Acute Qualifiers: Diabetes mellitus type: type 1 Diabetes mellitus complication detail: without coma Qualified Code(s): E10.10 - Type 1 diabetes mellitus with ketoacidosis without coma (2) Urinary tract infection Status: Acute Qualifiers: Urinary tract infection type: acute cystitis Hematuria presence: without hematuria Qualified Code(s): N30.00 - Acute cystitis without hematuria (3) HTN (hypertension) Status: Chronic Qualifiers: Hypertension type: essential hypertension Qualified Code(s): I10 - Essential (primary) hypertension (4) Type 1 diabetes mellitus Status: Chronic Qualifiers: Diabetes mellitus complication status: with hyperglycemia Qualified Code(s) : E10.65 - Type 1 diabetes mellitus with hyperglycemia (5) Hyperglycemia Status: Acute (6) Abnormal EKG Status: Chronic (7) Hypokalemia Status: Acute Hospital course: Ms. Hunter is a 63 year old female - Time Spent with Patient Total time spent providing and/or coordinating discharge services: Date of admission: 02/22/18 15:15 Primary care physician: Arcenio Rivera Jr, MD - Constitutional Vitals: Temp Pulse Resp BP Pulse Ox 97.8 F 57 16 158/81 98 02/23/18 11:07 02/23/18 11:07 02/23/18 11:07 02/23/18 11:07 02/23/18 11:07 - Attending Attestation I examined this patient and my medical decision-making was reviewed with the Resident Physician Dr Campbell. I agree with the documented findings, disposition and treatment plan as described except to the extent set forth below /addl details below Ms Hunter was admitted with DKA now resolved, likely caused by + UTI. awake, feeling back to baseline. no dysuria, hematuria, back or abd pain, fevers , chills, n/v. no cp, plapiations, thompson. Her bs was approx 40 this morning and she did have symptoms. She returned up to 157 after oral intake and has had no further issues this morning. She is very well versed in her diabetes management and check bs 4x daily at home. discussed discharge plan. gen- alert, awake,appears stated age cv- reg rate and rhythm, normal s1,s2, no murmurs appreciated lungs- ctabl, no wheezing, rhonchi or crackles abd- soft, non tender, non distended, + bs neuro- AAOx3 DKA in Type I Diabetic, anion gap, elevated bhb, ketones in urine, bs 819, resolved Likely as result of high bs at home + in setting of acute UTI -DKA resolved with insulin gtt and IVFs -cont basal and SSI- adjusted as needed, low bs this morning and dose reduction to 30 units units lantus qhs at dc after lengthy discussion / education with pt (her home dose is higher than the 35 units she received last night), cont home tidac accu checks, confirmed she has all supplies as well as juice and glucose at home for low blood sugars, well versed in her diabetes management C Freundii UTI- received rocpehin inpt, will dc on macrobid given sensitivities htn- she had elevated bps above goal this admission, this is an update to resident documentation ---an attempt was made at holding her home BB due to bradycardia HR 50-60s with it and to increase acei and hctz but her blood pressure remained very uncontrolled without it--decision made at dc to cont home meds as she reported well controlled with them and symptoms on presentation felt not to be related to HR but rather dka and uti. fu wth pcp for further maangement. prolonged qtc, ekg abnormality is unchanged from prior-bradycardic on that ekg and corrected qtc was normal,regardless avoid qtc prolonging abx at time of dc dc to home in stable condition
[2018-02-23 11:11] VITALS: BP 158/81
--- NOTE | 2018-02-25 16:35 | Electrocardiograph Report ---
[address] [place], [place] [address] Test Date: 2018-02-22 Pat Name: Uyen Hunter Department: 115 Room: 3A48 Gender: F Naturopathic Oncology Provider: CARISA : [id number] Requested By: Barbara Mendez Order Number: [id number] Reading MD: Rafi Sotelo Measurements Intervals [place] Rate: 50 P: 15 IN: 160 QRS: 16 QRSD: 97 T: 145 QT: 526 QTc: 499 Interpretive Statements SINUS BRADYCARDIA ST DEVIATION AND MODERATE T-WAVE ABNORMALITY, CONSIDER LATERAL ISCHEMIA Electronically Signed On 02-25-2018 16:33:51 EDT by Rafi Sotelo
== END 2018-02-23 13:25 | disposition home or self-care (01) | DRG 638 ==
LOC: 2SOUTHHOLD 04:52 → EMEROOARM 04:52 → 2SOUTHHOLD 13:15 → 3ANU 19:35 → SUATTDRO 02-22 15:15
PROVIDERS: ADMIT Pediatrics; ATTEND Internal Medicine

== ENCOUNTER 2019-07-13 10:50 | Inpatient (IN) ==
[~2019-07-13 10:50] MED LIST: *HR* Atropine Sulfate 1 MG/10 ML SYRINGE IV ONE; *HR* EPINEPHrine 1 MG/10 ML SYRINGE IVP ONE; *HR* Etomidate 20 MG/10 ML AMPUL IVP ONE; *HR* Norepinephrine 4 MG/4 ML VIAL IVC ONE; *HR* Rocuronium Bromide 100 MG/10 ML VIAL IVC ONE; D5% in Water 250 ML IV BAG IV ONE
[2019-07-13] MEDS ORDERED: 0.9 % Sodium Chloride 1,000 ML IVC ONE (11:11)
[2019-07-13] MEDS ORDERED: Naloxone 0.4 MG/ML INJ IVP ONE (11:11)
[2019-07-13 11:25] LABS: Basophils % 0.6 %; Eosinophils % 0.1 %; Mean Platelet Volume 12.1 fL (9.4-12.4); Monocytes % 2.8 %; Red Cell Distribution Width 13.6 % (11.5-14.5)
[2019-07-13 11:26] LABS: Basophils # 0.1 K/mcL (0.0-0.2); Hematocrit 39.9 % (35.3-44.9); Hemoglobin 11.4 g/dL (11.5-15.4); Immature Granulocytes % 1.8 % (0-4); Lymphocytes # 2.1 K/mcL (0.6-4.6); Mean Corpuscular HGB Conc 28.6 g/dL (31.6-35.5); Mean Corpuscular Hemoglobin 31.8 pg (28.0-33.3); Mean Corpuscular Volume 111.1 fL (83.0-100.0); Monocytes # 0.5 K/mcL (0.0-1.3); Neutrophils # 15.6 K/mcL (1.6-8.9); Platelet Count 392 K/mcL (140-400); Red Blood Count 3.59 M/mcL (3.82-4.97); Segmented Neutrophils % 83.7 %; White Blood Count 18.6 K/mcL (4.3-11.1)
[2019-07-13 11:34] LABS: Prothrombin Time 11.2 Seconds (9.4-12.1)
[2019-07-13 11:37] LABS: Activated Partial Thrombo Time 33.2 Seconds (26.0-36.0)
[2019-07-13 11:50] LABS: Troponin I 0.05 ng/mL (< 0.04)
[2019-07-13 12:00] LABS: Alanine Aminotransferase 25 Units/L (7-52); Albumin 3.5 g/dL (3.5-5.7); Albumin/Globulin Ratio 1.5 (1.1-2.2); Alkaline Phosphatase 105 Units/L (34-104); Aspartate Amino Transferase 42 Units/L (13-39); BUN/Creatinine Ratio 25 (6-26); Bilirubin,Direct 0.1 mg/dL (0.0-0.2); Bilirubin,Indirect 0.3 mg/dL (0.0-1.0); Bilirubin,Total 0.4 mg/dL (0.3-1.0); Blood Urea Nitrogen 62 mg/dL (8-23); Calcium 8.4 mg/dL (8.6-10.3); Carbon Dioxide 9 mEq/L (23-29); Chloride 85 mEq/L (98-107); Creatine Kinase 1922 Units/L (30-223); Ethanol < 10 mg/dL (Less than 10); Globulin 2.4 g/dL (2.4-3.5); Glucose 1631 mg/dL (70-105); Osmolality,Calculated 379 (280-300); Potassium 3.9 mEq/L (3.5-5.1); Sodium 133 mEq/L (136-145); Thyroid Stimulating Hormone 1.324 mcIU/mL (0.340-5.600); Total Protein 5.9 g/dL (6.4-8.9); eGFR For African Americans 23 (> 60); eGFR For Non-African Americans 19 (> 60)
[2019-07-13] MEDS ORDERED: SODIUM CHLORIDE ONE (12:05)
[2019-07-13] MEDS ORDERED: Calcium Gluconate 1gm/50mL 1 GM/50 ML BAG IVPB ONE ×4 (13:30→20:17)
[2019-07-13] MEDS ORDERED: *HR* Norepinephrine 4 MG/4 ML VIAL IVC ONE (13:55)
[2019-07-13] MEDS ORDERED: 0.9 % Sodium Chloride 250 ML ONE (13:55)
[2019-07-13] MEDS ORDERED: Cefepime HCl 1,000 MG in Water for inj. (sterile) 10 ML IVP STA (14:12)
[2019-07-13] MEDS ORDERED: Insulin Human Regular 20 UNIT in 0.9 % Sodium Chloride 10 ML IV ONE (14:12)
[2019-07-13] MEDS ORDERED: Potassium Phosphate 44 MEQ in 0.9 % Sodium Chloride 250 ML IVPB PRN (14:25)
[2019-07-13] MEDS: FentaNYL (PF) 1,000 MCG in 0.9 % Sodium Chloride 80 ML IVC SCH (15:28)
[2019-07-13] MEDS: Norepinephrine 4 MG in 0.9 % Sodium Chloride 250 ML IVC SCH (15:29)
[2019-07-13] MEDS: Insulin Human Regular 100 UNIT in 0.9 % Sodium Chloride 100 ML IVC SCH (15:30)
[2019-07-13] MEDS: 0.9 % Sodium Chloride 1,000 ML IVC SCH ×2 (15:31→16:08)
[2019-07-13 16:07] LABS: Calcium 7.5 mg/dL (8.6-10.3); Magnesium 3.1 mg/dL (1.6-2.6); Phosphorous 8.6 mg/dL (2.7-4.5)
[2019-07-13] MEDS: Cefepime HCl 1,000 MG in Water for inj. (sterile) 10 ML IVP SCH ×2 (16:23→23:16)
[2019-07-13] MEDS: Artificial Tears SOLN 15 ML BOTTLE BOTH EYES PRN ×2 (16:35→20:32)
[2019-07-13] MEDS: Artificial Tears SOLN 15 ML BOTTLE BOTH EYES SCH ×3 (16:37→23:17)
[2019-07-13 16:41] LABS: Basophils # 0.1 K/mcL (0.0-0.2); Basophils % 0.6 %; Eosinophils % 0.1 %; Hematocrit 37.5 % (35.3-44.9); Immature Granulocytes % 1.9 % (0-4); Lymphocytes # 1.4 K/mcL (0.6-4.6); Mean Corpuscular HGB Conc 29.3 g/dL (31.6-35.5); Mean Corpuscular Volume 105.6 fL (83.0-100.0); Mean Platelet Volume 10.8 fL (9.4-12.4); Monocytes # 0.2 K/mcL (0.0-1.3); Neutrophils # 15.7 K/mcL (1.6-8.9); Platelet Count 320 K/mcL (140-400); Red Blood Count 3.55 M/mcL (3.82-4.97); Red Cell Distribution Width 13.7 % (11.5-14.5); Segmented Neutrophils % 88.4 %; White Blood Count 17.8 K/mcL (4.3-11.1)
[2019-07-13] MEDS ORDERED: Sodium Bicarbonate 150 MEQ in D5% in Water 850 ML IVC SCH (17:00)
[2019-07-13 17:01] LABS: ABG Base Excess -27 mEq/L (-2 to 3); ABG HCO3 5 mEq/L (21-27); ABG Oxygen Saturation 100 % (95-98); ABG PCO2 29 mmHg (35-45); ABG PH 6.87 pH Units (7.32-7.45); ABG PO2 420 mmHg (85-104); ABG TCO2 6 mEq/L (20-26); Blood Gas Modality AF; Blood Gas VT 500 cc
[2019-07-13] MEDS: 0.45 % Sodium Chloride w/KCl 20 MEQ/1,000 ML MLS IVC SCH ×4 (17:06→22:39)
[2019-07-13] MEDS: Calcium Gluconate 1gm/50mL 1 GM/50 ML BAG IVPB PRN (17:13)
[2019-07-13] MEDS ORDERED: Piperacillin/Tazobactam 3.375 GM in 0.9 % Sodium Chloride Mini Bag 100 ML IVPB SCH (18:00)
[2019-07-13] MEDS ORDERED: Sodium Bicarbonate 50 MEQ/50 ML VIAL ONE (18:11)
[2019-07-13] MEDS: Sodium Bicarbonate 150 MEQ in 0.45 % Sodium Chloride 1,000 ML IVC SCH ×2 (18:13→22:16)
[2019-07-13 18:59] LABS: ABG Base Excess -23 mEq/L (-2 to 3); ABG HCO3 7 mEq/L (21-27); ABG Oxygen Saturation 99 % (95-98); ABG PCO2 25 mmHg (35-45); ABG PH 7.03 pH Units (7.32-7.45); ABG PO2 211 mmHg (85-104); ABG TCO2 7 mEq/L (20-26); Blood Gas Modality AF; Blood Gas VT 500 cc
[2019-07-13 19:32] LABS: Magnesium 2.4 mg/dL (1.6-2.6); Phosphorous 5.4 mg/dL (2.7-4.5); Potassium 3.8 mEq/L (3.5-5.1)
[2019-07-13] MEDS: Chlorhexidine Rinse 15 ML MOUTHWASH MM SCH (20:23)
[2019-07-13 21:01] LABS: Calcium 6.8 mg/dL (8.6-10.3); Potassium 3.9 mEq/L (3.5-5.1)
[2019-07-13] MEDS ORDERED: Sodium Bicarbonate 50 MEQ/50 ML VIAL IVP ONE (22:16)
[2019-07-13 22:17] LABS: ABG Base Excess -22 mEq/L (-2 to 3); ABG HCO3 6 mEq/L (21-27); ABG Oxygen Saturation 99 % (95-98); ABG PCO2 23 mmHg (35-45); ABG PH 7.05 pH Units (7.32-7.45); ABG PO2 187 mmHg (85-104); ABG TCO2 7 mEq/L (20-26); Blood Gas Modality AF; Blood Gas VT 500 cc
[2019-07-13 23:06] LABS: Calcium 7.1 mg/dL (8.6-10.3); Potassium 4.4 mEq/L (3.5-5.1)
[2019-07-14 00:11] LABS: ABG Base Excess -14 mEq/L (-2 to 3); ABG HCO3 10 mEq/L (21-27); ABG Oxygen Saturation 99 % (95-98); ABG PCO2 20 mmHg (35-45); ABG PH 7.33 pH Units (7.32-7.45); ABG PO2 153 mmHg (85-104); ABG TCO2 11 mEq/L (20-26); Blood Gas Modality AF; Blood Gas VT 500 cc
[2019-07-14 00:49] LABS: Potassium 4.3 mEq/L (3.5-5.1); Troponin I 0.54 ng/mL (< 0.04)
[2019-07-14] MEDS ORDERED: *HR* Heparin 5,000 UNIT/ML VIAL IVP PRN ×2 (00:50)
[2019-07-14] MEDS ORDERED: *HR* Heparin 5,000 UNIT/ML VIAL IVP ONE (00:50)
[2019-07-14] MEDS: Norepinephrine 4 MG in 0.9 % Sodium Chloride 250 ML IVC SCH ×2 (00:57→08:21)
[2019-07-14] MEDS: Heparin 25,000 UNIT/250 ML D5W 25,000 UNIT/250 ML IV.SOLN IVC SCH (01:18)
[2019-07-14 02:41] LABS: Calcium 7.1 mg/dL (8.6-10.3); Potassium 4.2 mEq/L (3.5-5.1)
[2019-07-14] MEDS: Insulin Human Regular 100 UNIT in 0.9 % Sodium Chloride 100 ML IVC SCH ×3 (02:56→11:00)
[2019-07-14] MEDS: 0.45 % Sodium Chloride w/KCl 20 MEQ/1,000 ML MLS IVC SCH ×6 (02:59→11:47)
[2019-07-14] MEDS: Artificial Tears SOLN 15 ML BOTTLE BOTH EYES SCH ×6 (03:01→23:53)
[2019-07-14 04:11] LABS: Basophils % 0.2 %; Hematocrit 31.9 % (35.3-44.9); Hemoglobin 11.4 g/dL (11.5-15.4); Immature Granulocytes % 1.1 % (0-4); Lymphocytes # 1.3 K/mcL (0.6-4.6); Lymphocytes % 8.4 %; Mean Corpuscular HGB Conc 35.7 g/dL (31.6-35.5); Mean Corpuscular Hemoglobin 31.7 pg (28.0-33.3); Mean Corpuscular Volume 88.6 fL (83.0-100.0); Mean Platelet Volume 10.8 fL (9.4-12.4); Monocytes # 0.6 K/mcL (0.0-1.3); Monocytes % 3.8 %; Neutrophils # 12.9 K/mcL (1.6-8.9); Platelet Count 284 K/mcL (140-400); Red Cell Distribution Width 13.6 % (11.5-14.5); Segmented Neutrophils % 86.5 %
[2019-07-14 04:20] LABS: ABG Base Excess -9 mEq/L (-2 to 3); ABG HCO3 14 mEq/L (21-27); ABG Oxygen Saturation 99 % (95-98); ABG PCO2 20 mmHg (35-45); ABG PH 7.44 pH Units (7.32-7.45); ABG PO2 141 mmHg (85-104); ABG TCO2 14 mEq/L (20-26); Blood Gas Modality AF; Blood Gas VT 500 cc
[2019-07-14 04:23] LABS: VBG Ionized Calcium 1.02 mmol/L (1.15-1.35)
[2019-07-14 04:25] LABS: Calcium 7.3 mg/dL (8.6-10.3); Magnesium 1.9 mg/dL (1.6-2.6); Phosphorous 1.4 mg/dL (2.7-4.5); Potassium 3.9 mEq/L (3.5-5.1)
[2019-07-14 04:31] LABS: INR 1.2; Prothrombin Time 13.9 Seconds (9.4-12.1)
[2019-07-14 04:33] LABS: Heparin anti-factor XA UFH 1.14 IU/mL (0.30-0.70)
[2019-07-14] MEDS: Calcium Gluconate 1gm/50mL 1 GM/50 ML BAG IVPB PRN (04:42)
[2019-07-14 06:40] LABS: Calcium 7.4 mg/dL (8.6-10.3); Potassium 3.9 mEq/L (3.5-5.1); Troponin I 4.86 ng/mL (< 0.04)
[2019-07-14] MEDS: Chlorhexidine Rinse 15 ML MOUTHWASH MM SCH ×2 (08:20→21:11)
[2019-07-14] MEDS: Pantoprazole 40 MG VIAL IVP SCH (08:20)
[2019-07-14] MEDS: Cefepime HCl 1,000 MG in Water for inj. (sterile) 10 ML IVP SCH ×2 (08:20→21:10)
[2019-07-14] MEDS ORDERED: *HR* Heparin 5,000 UNIT/ML VIAL SQ SCH (09:00)
[2019-07-14 10:09] LABS: VBG Ionized Calcium 1.03 mmol/L (1.15-1.35)
[2019-07-14] MEDS ORDERED: Ammonia Inhalant AMPUL ONE (11:12)
[2019-07-14] MEDS ORDERED: *HR* LORazepam 2 MG/ML VIAL IVP ONE (11:15)
[2019-07-14] MEDS: Sodium Bicarbonate 150 MEQ in 0.45 % Sodium Chloride 1,000 ML IVC SCH ×2 (11:44→21:12)
[2019-07-14] MEDS ORDERED: levETIRAcetam 1,500 MG in 0.9 % Sodium Chloride 250 ML IVPB ONE (12:00)
[2019-07-14 12:13] LABS: Bilirubin,Urine Negative (Negative); Blood,Urine Large (Negative); Clarity,Urine Cloudy (Clear); Color,Urine Yellow (Yellow); Glucose,Urine (UA) >=1000 mg/dL (Normal); Ketones,Urine 40 mg/dL (Negative); Leukocyte Esterase,Urine Trace (Negative); Nitrite,Urine Negative (Negative); Protein,Urine 100 mg/dL (Neg-Trace); Specific Gravity,Urine 1.025 (1.010-1.025); Urobilinogen,Urine Normal (Normal)
[2019-07-14] MEDS ORDERED: Insulin Human Regular 250 UNIT in 0.9 % Sodium Chloride 250 ML IVC SCH (12:15)
[2019-07-14 12:16] LABS: RBC,Urine 30-50 per hpf (0-3); Squamous Epithelial Cell,Urine Many per lpf (None-Few); WBC,Urine 30-50 per hpf (0-3)
[2019-07-14 12:19] LABS: Amphetamine Screen,Urine Negative ng/mL (Cutoff=1000); Barbiturate Screen,Urine Negative ng/mL (Cutoff=200); Benzodiazepines Screen,Urine Negative ng/mL (Cutoff=200); Cannabinoid Screen,Urine Negative ng/mL (Cutoff = 50); Cocaine Screen,Urine Negative ng/mL (Cutoff= 300); Opiate Screen,Urine Negative ng/mL (Cutoff=300); Phencyclidine Screen,Urine Negative ng/mL (Cutoff=25)
[2019-07-14 12:19] LABS: Protein/Creatinine Ratio,Urine 9.21 mg/mg (0.00-0.20)
[2019-07-14 12:33] LABS: White Blood Cell Casts,Urine Moderate per lpf (None Seen)
[2019-07-14 12:34] LABS: Bacteria,Urine Many per hpf (None-Few); Hyaline Casts,Urine Few per lpf (None-Few)
[2019-07-14] MEDS ORDERED: Ammonia Inhalant AMPUL IH ONE (12:34)
[2019-07-14 13:16] LABS: ABG Base Excess -4 mEq/L (-2 to 3); ABG HCO3 20 mEq/L (21-27); ABG Oxygen Saturation 98 % (95-98); ABG PCO2 32 mmHg (35-45); ABG PO2 112 mmHg (85-104); ABG TCO2 21 mEq/L (20-26); Blood Gas Modality AF; Blood Gas VT 420 cc
[2019-07-14] MEDS: D5% in 0.45% NACL w KCl 20 MEQ/1,000 ML MLS IVC SCH ×3 (13:23→23:50)
[2019-07-14 14:59] LABS: Potassium,Urine 7.9 mEq/L; Sodium, Urine 34.1 mEq/L
[2019-07-14 15:15] LABS: Troponin I 4.54 ng/mL (< 0.04)
[2019-07-14 15:53] LABS: Calcium 7.6 mg/dL (8.6-10.3); Potassium 3.9 mEq/L (3.5-5.1)
[2019-07-14] MEDS ORDERED: *HR* FentaNYL (PF) 100 MCG/2 ML VIAL IVP ONE (17:00)
[2019-07-14] MEDS: *HR* Dextrose 50 % in Water (Syg) 50 ML SYRINGE IVP PRN (20:00)
[2019-07-14 20:57] LABS: Estimated Average Glucose 278 mg/dl
[2019-07-14] MEDS: FentaNYL (PF) 1,000 MCG in 0.9 % Sodium Chloride 80 ML IVC SCH (21:11)
[2019-07-14 21:26] LABS: Hematocrit 29.7 % (35.3-44.9); Hemoglobin 10.4 g/dL (11.5-15.4); Mean Corpuscular Hemoglobin 30.8 pg (28.0-33.3); Mean Corpuscular Volume 87.9 fL (83.0-100.0); Mean Platelet Volume 11.1 fL (9.4-12.4); Platelet Count 184 K/mcL (140-400); Red Blood Count 3.38 M/mcL (3.82-4.97); Red Cell Distribution Width 14.2 % (11.5-14.5); White Blood Count 14.6 K/mcL (4.3-11.1)
[2019-07-14 21:42] LABS: Lymphocytes # 1.5 K/mcL (0.6-4.6); Monocytes # 0.3 K/mcL (0.0-1.3); Neutrophils # 12.9 K/mcL (1.6-8.9)
[2019-07-14 21:44] LABS: Platelet Estimate Normal (Normal)
[2019-07-14 23:05] LABS: Calcium 6.9 mg/dL (8.6-10.3); Potassium 4.7 mEq/L (3.5-5.1)
[2019-07-14] MEDS ORDERED: Insulin DETEMIR 100 UNIT/ML X5UNITS SQ SCH (23:45)
[2019-07-14] MEDS ORDERED: D5% in Water 1,000 ML IVC PRN (23:53)
[2019-07-14] MEDS ORDERED: Dextrose Gel 15 GM/37.5 ML TUBE PO PRN ×2 (23:53)
[2019-07-14] MEDS ORDERED: *HR* Dextrose 50 % in Water (Syg) 50 ML SYRINGE IVP PRN (23:53)
[2019-07-15] MEDS: Insulin LISPRO 300 UNITS/3 ML VIAL SQ SCH ×3 (01:05→09:30)
[2019-07-15] MEDS: Artificial Tears SOLN 15 ML BOTTLE BOTH EYES PRN (03:35)
[2019-07-15] MEDS: Heparin 25,000 UNIT/250 ML D5W 25,000 UNIT/250 ML IV.SOLN IVC SCH ×2 (03:43→21:26)
[2019-07-15] MEDS: Artificial Tears SOLN 15 ML BOTTLE BOTH EYES SCH ×6 (03:43→23:47)
[2019-07-15] MEDS: Sodium Bicarbonate 150 MEQ in 0.45 % Sodium Chloride 1,000 ML IVC SCH (03:43)
[2019-07-15 04:03] LABS: ABG Base Excess -4 mEq/L (-2 to 3); ABG HCO3 19 mEq/L (21-27); ABG Oxygen Saturation 99 % (95-98); ABG PCO2 27 mmHg (35-45); ABG PH 7.45 pH Units (7.32-7.45); ABG PO2 110 mmHg (85-104); ABG TCO2 20 mEq/L (20-26); Blood Gas Modality ASSIST CONTROL; Blood Gas VT 420 cc
[2019-07-15 05:05] LABS: VBG Ionized Calcium 0.98 mmol/L (1.15-1.35)
[2019-07-15 05:12] LABS: Hematocrit 28.2 % (35.3-44.9); Mean Corpuscular HGB Conc 35.5 g/dL (31.6-35.5); Mean Corpuscular Hemoglobin 31.6 pg (28.0-33.3); Mean Corpuscular Volume 89.2 fL (83.0-100.0); Platelet Count 134 K/mcL (140-400); Red Blood Count 3.16 M/mcL (3.82-4.97); Red Cell Distribution Width 14.6 % (11.5-14.5); White Blood Count 12.4 K/mcL (4.3-11.1)
[2019-07-15] MEDS: D5% in 0.45% NACL w KCl 20 MEQ/1,000 ML MLS IVC SCH ×5 (05:22→23:46)
[2019-07-15 05:31] LABS: Calcium 6.8 mg/dL (8.6-10.3); Magnesium 1.8 mg/dL (1.6-2.6); Phosphorous 3.1 mg/dL (2.7-4.5)
[2019-07-15] MEDS: Calcium Gluconate 1gm/50mL 1 GM/50 ML BAG IVPB PRN ×2 (05:55→18:53)
[2019-07-15 06:15] LABS: Monocytes # 0.5 K/mcL (0.0-1.3); Neutrophils # 10.9 K/mcL (1.6-8.9); Platelet Estimate Normal (Normal)
[2019-07-15] MEDS: Norepinephrine 4 MG in 0.9 % Sodium Chloride 250 ML IVC SCH (08:00)
[2019-07-15] MEDS: 0.9 % Sodium Chloride 1,000 ML IVC SCH ×4 (08:15→21:21)
[2019-07-15] MEDS ORDERED: 0.9 % Sodium Chloride 2,000 ML ONE (08:24)
[2019-07-15] MEDS: Pantoprazole 40 MG VIAL IVP SCH (09:28)
[2019-07-15] MEDS: Cefepime HCl 1,000 MG in Water for inj. (sterile) 10 ML IVP SCH (09:28)
[2019-07-15] MEDS: Chlorhexidine Rinse 15 ML MOUTHWASH MM SCH ×2 (09:29→21:19)
[2019-07-15] MEDS ORDERED: Insulin Human Regular 100 UNIT in 0.9 % Sodium Chloride 100 ML IVC SCH (11:45)
[2019-07-15 12:16] LABS: Calcium 5.6 mg/dL (8.6-10.3)
[2019-07-15] MEDS: Calcium Gluconate 1gm/50mL 1 GM/50 ML BAG IVPB SCH ×2 (13:00→14:03)
[2019-07-15] MEDS: cefTRIAXone 1,000 MG in Water for inj. (sterile) 10 ML IVP SCH (18:05)
[2019-07-15] MEDS: FentaNYL (PF) 1,000 MCG in 0.9 % Sodium Chloride 80 ML IVC SCH (18:06)
[2019-07-15] MEDS ORDERED: 0.9 % Sodium Chloride 500 ML ONE (19:24)
[2019-07-15] MEDS: Desitin (Zinc Oxide) 56 GM TUBE TP PRN (22:11)
[2019-07-16] LABS: VBG Ionized Calcium 1.05 mmol/L (1.15-1.35)
[2019-07-16] MEDS: Calcium Gluconate 1gm/50mL 1 GM/50 ML BAG IVPB PRN ×2 (01:08→05:59)
[2019-07-16] MEDS: 0.9 % Sodium Chloride 1,000 ML IVC SCH (03:03)
[2019-07-16] MEDS: Artificial Tears SOLN 15 ML BOTTLE BOTH EYES SCH ×6 (03:03→23:52)
[2019-07-16] MEDS: D5% in 0.45% NACL w KCl 20 MEQ/1,000 ML MLS IVC SCH (03:03)
[2019-07-16 03:55] LABS: VBG Ionized Calcium 1.08 mmol/L (1.15-1.35)
[2019-07-16 04:02] LABS: Hematocrit 28.3 % (35.3-44.9); Hemoglobin 9.4 g/dL (11.5-15.4); Mean Corpuscular HGB Conc 33.2 g/dL (31.6-35.5)
[2019-07-16 04:03] LABS: ABG Base Excess -6 mEq/L (-2 to 3); ABG HCO3 18 mEq/L (21-27); ABG Oxygen Saturation 99 % (95-98); ABG PCO2 31 mmHg (35-45); ABG PH 7.38 pH Units (7.32-7.45); ABG PO2 140 mmHg (85-104); ABG TCO2 19 mEq/L (20-26); Blood Gas Modality VC; Blood Gas VT 420 cc
[2019-07-16 04:04] LABS: Mean Corpuscular Hemoglobin 30.9 pg (28.0-33.3); Mean Corpuscular Volume 93.1 fL (83.0-100.0); Mean Platelet Volume 11.2 fL (9.4-12.4); Red Blood Count 3.04 M/mcL (3.82-4.97); Red Cell Distribution Width 15.2 % (11.5-14.5); White Blood Count 15.5 K/mcL (4.3-11.1)
[2019-07-16 04:11] LABS: Calcium 7.1 mg/dL (8.6-10.3); Magnesium 2.3 mg/dL (1.6-2.6); Phosphorous 3.7 mg/dL (2.7-4.5); Potassium 5.4 mEq/L (3.5-5.1)
[2019-07-16 04:48] LABS: Platelet Count 78 K/mcL (140-400)
[2019-07-16 04:50] LABS: Lymphocytes # 3.1 K/mcL (0.6-4.6); Monocytes # 0.6 K/mcL (0.0-1.3); Neutrophils # 11.8 K/mcL (1.6-8.9)
[2019-07-16 04:51] LABS: Platelet Estimate Decreased (Normal)
[2019-07-16] MEDS: Insulin LISPRO 300 UNITS/3 ML VIAL SQ SCH ×6 (05:08→23:46)
[2019-07-16] MEDS: Desitin (Zinc Oxide) 56 GM TUBE TP PRN ×2 (05:57→23:48)
[2019-07-16] MEDS: Chlorhexidine Rinse 15 ML MOUTHWASH MM SCH ×2 (08:38→21:08)
[2019-07-16] MEDS: Pantoprazole 40 MG VIAL IVP SCH (08:38)
[2019-07-16] MEDS: *HR* Heparin 5,000 UNIT/ML VIAL SQ SCH ×2 (09:56→17:28)
[2019-07-16 11:37] LABS: VBG Ionized Calcium 1.12 mmol/L (1.15-1.35)
[2019-07-16] MEDS: Sodium Bicarbonate 100 MEQ in 0.45 % Sodium Chloride 1,000 ML IVC SCH ×2 (13:20→23:44)
[2019-07-16] MEDS: FentaNYL (PF) 1,000 MCG in 0.9 % Sodium Chloride 80 ML IVC SCH (13:26)
[2019-07-16] MEDS: cefTRIAXone 1,000 MG in Water for inj. (sterile) 10 ML IVP SCH (17:28)
[2019-07-16 18:46] LABS: Calcium 7.4 mg/dL (8.6-10.3); Potassium 4.8 mEq/L (3.5-5.1)
[2019-07-16] MEDS: Insulin DETEMIR 100 UNIT/ML X5UNITS SQ SCH (21:10)
[2019-07-16] MEDS ORDERED: *HR* FentaNYL (PF) 100 MCG/2 ML VIAL IVP ONE (23:42)
[2019-07-16] MEDS: Artificial Tears SOLN 15 ML BOTTLE BOTH EYES PRN (23:48)
[2019-07-17] MEDS ORDERED: *HR* FentaNYL (PF) 100 MCG/2 ML VIAL IVP ONE (03:44)
[2019-07-17 04:10] LABS: Basophils % 0.1 %; Mean Corpuscular Volume 92.4 fL (83.0-100.0)
[2019-07-17 04:11] LABS: VBG Ionized Calcium 1.12 mmol/L (1.15-1.35)
[2019-07-17 04:12] LABS: Eosinophils % 0.1 %; Hematocrit 26.6 % (35.3-44.9); Immature Granulocytes % 0.6 % (0-4); Lymphocytes # 0.6 K/mcL (0.6-4.6); Lymphocytes % 5.1 %; Mean Corpuscular HGB Conc 33.8 g/dL (31.6-35.5); Mean Corpuscular Hemoglobin 31.3 pg (28.0-33.3); Mean Platelet Volume 11.5 fL (9.4-12.4); Monocytes # 0.5 K/mcL (0.0-1.3); Monocytes % 3.6 %; Neutrophils # 11.4 K/mcL (1.6-8.9); Red Blood Count 2.88 M/mcL (3.82-4.97); Red Cell Distribution Width 14.7 % (11.5-14.5); Segmented Neutrophils % 90.5 %; White Blood Count 12.6 K/mcL (4.3-11.1)
[2019-07-17] MEDS: Artificial Tears SOLN 15 ML BOTTLE BOTH EYES SCH ×6 (04:12→23:13)
[2019-07-17] MEDS: Desitin (Zinc Oxide) 56 GM TUBE TP PRN (04:12)
[2019-07-17 04:13] LABS: Platelet Count 72 K/mcL (140-400)
[2019-07-17] MEDS: Insulin LISPRO 300 UNITS/3 ML VIAL SQ SCH ×5 (04:13→20:39)
[2019-07-17 04:23] LABS: ABG Base Excess -1 mEq/L (-2 to 3); ABG HCO3 23 mEq/L (21-27); ABG Oxygen Saturation 99 % (95-98); ABG PCO2 36 mmHg (35-45); ABG PH 7.42 pH Units (7.32-7.45); ABG PO2 135 mmHg (85-104); ABG TCO2 24 mEq/L (20-26); Blood Gas Modality AF; Blood Gas VT 420 cc
[2019-07-17 04:31] LABS: Calcium 7.4 mg/dL (8.6-10.3); Magnesium 2.2 mg/dL (1.6-2.6); Phosphorous 3.2 mg/dL (2.7-4.5); Potassium 4.6 mEq/L (3.5-5.1)
[2019-07-17 04:32] LABS: Albumin 2.2 g/dL (3.5-5.7); Albumin/Globulin Ratio 0.9 (1.1-2.2); Bilirubin,Total 0.3 mg/dL (0.3-1.0); Calcium 7.5 mg/dL (8.6-10.3); Globulin 2.5 g/dL (2.4-3.5); Potassium 4.6 mEq/L (3.5-5.1); Total Protein 4.7 g/dL (6.4-8.9)
[2019-07-17] MEDS: *HR* Heparin 5,000 UNIT/ML VIAL SQ SCH ×2 (05:43→17:49)
[2019-07-17] MEDS: Insulin DETEMIR 100 UNIT/ML X5UNITS SQ SCH ×2 (08:51→20:40)
[2019-07-17] MEDS: Chlorhexidine Rinse 15 ML MOUTHWASH MM SCH ×2 (08:51→20:39)
[2019-07-17] MEDS: Pantoprazole 40 MG VIAL IVP SCH (08:51)
[2019-07-17] MEDS: Scopolamine Patch 1.5 MG PATCH.TD72 TD SCH (11:04)
[2019-07-17] MEDS: FentaNYL (PF) 1,000 MCG in 0.9 % Sodium Chloride 80 ML IVC SCH (13:16)
[2019-07-17 14:47] LABS: Calcium 7.6 mg/dL (8.6-10.3); Potassium 4.4 mEq/L (3.5-5.1)
[2019-07-17] MEDS: Norepinephrine 4 MG in 0.9 % Sodium Chloride 250 ML IVC SCH (15:06)
[2019-07-17] MEDS: cefTRIAXone 1,000 MG in Water for inj. (sterile) 10 ML IVP SCH (17:49)
[2019-07-17] MEDS ORDERED: Metoclopramide 10 MG/10 ML UD.LIQ GTUBE SCH (18:00)
[2019-07-18] MEDS: Insulin LISPRO 300 UNITS/3 ML VIAL SQ SCH ×6 (00:08→20:21)
[2019-07-18 04:26] LABS: ABG Base Excess 1 mEq/L (-2 to 3); ABG HCO3 25 mEq/L (21-27); ABG Oxygen Saturation 98 % (95-98); ABG PCO2 36 mmHg (35-45); ABG PH 7.45 pH Units (7.32-7.45); ABG PO2 108 mmHg (85-104); ABG TCO2 26 mEq/L (20-26); Blood Gas Modality AF; Blood Gas VT 420 cc
[2019-07-18] MEDS: Artificial Tears SOLN 15 ML BOTTLE BOTH EYES SCH ×5 (04:52→20:21)
[2019-07-18 04:54] LABS: Basophils % 0.1 %; Eosinophils % 0.3 %; Monocytes % 6.9 %; Red Cell Distribution Width 14.5 % (11.5-14.5)
[2019-07-18 04:55] LABS: Hematocrit 26.6 % (35.3-44.9); Hemoglobin 8.7 g/dL (11.5-15.4); Immature Platelets 3.6 % (1.1-6.1); Lymphocytes # 0.7 K/mcL (0.6-4.6); Lymphocytes % 8.9 %; Mean Corpuscular HGB Conc 32.7 g/dL (31.6-35.5); Mean Corpuscular Hemoglobin 30.7 pg (28.0-33.3); Mean Platelet Volume 11.2 fL (9.4-12.4); Monocytes # 0.5 K/mcL (0.0-1.3); Neutrophils # 6.5 K/mcL (1.6-8.9); Red Blood Count 2.83 M/mcL (3.82-4.97); Segmented Neutrophils % 82.8 %; White Blood Count 7.8 K/mcL (4.3-11.1)
[2019-07-18 04:58] LABS: VBG Ionized Calcium 1.14 mmol/L (1.15-1.35)
[2019-07-18 05:02] LABS: Platelet Count 62 K/mcL (140-400)
[2019-07-18 05:03] LABS: Platelet Estimate Decreased (Normal)
[2019-07-18] MEDS ORDERED: *HR* FentaNYL (PF) 100 MCG/2 ML VIAL IVP ONE (05:09)
[2019-07-18 05:13] LABS: Calcium 7.7 mg/dL (8.6-10.3); Magnesium 2.2 mg/dL (1.6-2.6); Phosphorous 3.2 mg/dL (2.7-4.5); Potassium 4.1 mEq/L (3.5-5.1)
[2019-07-18] MEDS: *HR* Heparin 5,000 UNIT/ML VIAL SQ SCH ×2 (06:04→18:01)
[2019-07-18] MEDS ORDERED: *HR* Metoprolol 5 MG/5 ML VIAL IVP ONE ×2 (07:13→07:45)
[2019-07-18] MEDS: *HR* Metoprolol 5 MG/5 ML VIAL IVP PRN ×2 (07:18→16:12)
[2019-07-18] MEDS: Pantoprazole 40 MG VIAL IVP SCH (08:55)
[2019-07-18] MEDS: Insulin DETEMIR 100 UNIT/ML X5UNITS SQ SCH ×2 (08:55→20:20)
[2019-07-18] MEDS: Chlorhexidine Rinse 15 ML MOUTHWASH MM SCH ×2 (08:55→20:20)
[2019-07-18] MEDS: DilTIAZem 50 MG in 0.9 % Sodium Chloride 40 ML IVC SCH (11:46)
[2019-07-18] MEDS: Norepinephrine 4 MG in 0.9 % Sodium Chloride 250 ML IVC SCH (11:46)
[2019-07-18] MEDS: FentaNYL (PF) 1,000 MCG in 0.9 % Sodium Chloride 80 ML IVC SCH (11:46)
[2019-07-18] MEDS: cefTRIAXone 1,000 MG in Water for inj. (sterile) 10 ML IVP SCH (18:01)
[2019-07-19] MEDS: Artificial Tears SOLN 15 ML BOTTLE BOTH EYES PRN (02:50)
[2019-07-19] MEDS: Insulin LISPRO 300 UNITS/3 ML VIAL SQ SCH ×6 (05:30→21:41)
[2019-07-19 05:31] LABS: ABG Base Excess 1 mEq/L (-2 to 3); ABG HCO3 24 mEq/L (21-27); ABG Oxygen Saturation 98 % (95-98); ABG PCO2 31 mmHg (35-45); ABG PH 7.49 pH Units (7.32-7.45); ABG PO2 97 mmHg (85-104); ABG TCO2 25 mEq/L (20-26); Blood Gas VT 420 cc
[2019-07-19] MEDS: Artificial Tears SOLN 15 ML BOTTLE BOTH EYES SCH ×6 (05:34→21:41)
[2019-07-19] MEDS: *HR* Heparin 5,000 UNIT/ML VIAL SQ SCH ×2 (05:35→18:31)
[2019-07-19 06:18] LABS: Basophils % 0.2 %; Mean Corpuscular HGB Conc 32.4 g/dL (31.6-35.5)
[2019-07-19 06:20] LABS: Eosinophils # 0.1 K/mcL (0.0-0.6); Eosinophils % 0.9 %; Hematocrit 25.9 % (35.3-44.9); Hemoglobin 8.4 g/dL (11.5-15.4); Immature Granulocytes % 1.2 % (0-4); Immature Platelets 5.3 % (1.1-6.1); Lymphocytes # 0.8 K/mcL (0.6-4.6); Lymphocytes % 13.2 %; Mean Corpuscular Volume 95.6 fL (83.0-100.0); Mean Platelet Volume 11.6 fL (9.4-12.4); Monocytes # 0.8 K/mcL (0.0-1.3); Monocytes % 14.6 %; Red Blood Count 2.71 M/mcL (3.82-4.97); Red Cell Distribution Width 14.3 % (11.5-14.5); Segmented Neutrophils % 69.9 %; White Blood Count 5.7 K/mcL (4.3-11.1)
[2019-07-19 06:22] LABS: Platelet Count 74 K/mcL (140-400)
[2019-07-19 06:32] LABS: Calcium 8.2 mg/dL (8.6-10.3); Magnesium 2.2 mg/dL (1.6-2.6); Phosphorous 3.1 mg/dL (2.7-4.5); Potassium 3.8 mEq/L (3.5-5.1)
[2019-07-19] MEDS: Pantoprazole 40 MG VIAL IVP SCH (08:57)
[2019-07-19] MEDS: Chlorhexidine Rinse 15 ML MOUTHWASH MM SCH ×2 (08:57→21:40)
[2019-07-19] MEDS: Insulin DETEMIR 100 UNIT/ML X5UNITS SQ SCH ×2 (09:02→21:40)
[2019-07-19 11:51] LABS: VBG Ionized Calcium 1.22 mmol/L (1.15-1.35)
[2019-07-19] MEDS ORDERED: Ipratropium/Albuterol Neb 3 ML IH PRN (12:50)
[2019-07-19] MEDS: Albumin 25% 25gram/100mL 25 GM/100 ML IV.SOLN IVC SCH ×2 (17:07→18:32)
[2019-07-19] MEDS: FentaNYL (PF) 1,000 MCG in 0.9 % Sodium Chloride 80 ML IVC SCH (17:21)
[2019-07-19] MEDS: DilTIAZem 50 MG in 0.9 % Sodium Chloride 40 ML IVC SCH (17:21)
[2019-07-19] MEDS: Norepinephrine 4 MG in 0.9 % Sodium Chloride 250 ML IVC SCH (17:21)
[2019-07-19] MEDS: cefTRIAXone 1,000 MG in Water for inj. (sterile) 10 ML IVP SCH (18:31)
[2019-07-20] MEDS: Artificial Tears SOLN 15 ML BOTTLE BOTH EYES SCH ×7 (00:18→23:56)
[2019-07-20] MEDS: Insulin LISPRO 300 UNITS/3 ML VIAL SQ SCH ×7 (00:18→23:56)
[2019-07-20] MEDS: *HR* Metoprolol 5 MG/5 ML VIAL IVP PRN (04:43)
[2019-07-20 05:15] LABS: Basophils % 0.1 %; Eosinophils # 0.1 K/mcL (0.0-0.6); Eosinophils % 1.2 %; Hematocrit 25.1 % (35.3-44.9); Hemoglobin 7.9 g/dL (11.5-15.4); Immature Granulocytes % 2.7 % (0-4); Lymphocytes # 0.7 K/mcL (0.6-4.6); Lymphocytes % 10.2 %; Mean Corpuscular HGB Conc 31.5 g/dL (31.6-35.5); Mean Corpuscular Hemoglobin 30.7 pg (28.0-33.3); Mean Corpuscular Volume 97.7 fL (83.0-100.0); Mean Platelet Volume 11.3 fL (9.4-12.4); Monocytes # 0.9 K/mcL (0.0-1.3); Monocytes % 13.3 %; Neutrophils # 4.8 K/mcL (1.6-8.9); Platelet Count 103 K/mcL (140-400); Red Blood Count 2.57 M/mcL (3.82-4.97); Red Cell Distribution Width 14.3 % (11.5-14.5); Segmented Neutrophils % 72.5 %; White Blood Count 6.7 K/mcL (4.3-11.1)
[2019-07-20 05:19] LABS: ABG Base Excess 0 mEq/L (-2 to 3); ABG HCO3 25 mEq/L (21-27); ABG Oxygen Saturation 99 % (95-98); ABG PCO2 38 mmHg (35-45); ABG PH 7.42 pH Units (7.32-7.45); ABG PO2 123 mmHg (85-104); ABG TCO2 26 mEq/L (20-26); Blood Gas VT 380 cc
[2019-07-20 05:32] LABS: Calcium 8.5 mg/dL (8.6-10.3); Magnesium 2.1 mg/dL (1.6-2.6); Phosphorous 3.2 mg/dL (2.7-4.5); Potassium 3.8 mEq/L (3.5-5.1)
[2019-07-20] MEDS: *HR* Heparin 5,000 UNIT/ML VIAL SQ SCH ×2 (06:19→16:51)
[2019-07-20] MEDS: Chlorhexidine Rinse 15 ML MOUTHWASH MM SCH ×2 (08:11→20:30)
[2019-07-20] MEDS: Insulin DETEMIR 100 UNIT/ML X5UNITS SQ SCH ×2 (08:11→20:30)
[2019-07-20] MEDS: Pantoprazole 40 MG VIAL IVP SCH (08:11)
[2019-07-20] MEDS: Scopolamine Patch 1.5 MG PATCH.TD72 TD SCH (08:11)
[2019-07-20] MEDS: DilTIAZem 50 MG in 0.9 % Sodium Chloride 40 ML IVC SCH (11:48)
[2019-07-20] MEDS: cefTRIAXone 1,000 MG in Water for inj. (sterile) 10 ML IVP SCH (16:50)
[2019-07-20] MEDS: FentaNYL (PF) 1,000 MCG in 0.9 % Sodium Chloride 80 ML IVC SCH (18:32)
[2019-07-20] MEDS: Norepinephrine 4 MG in 0.9 % Sodium Chloride 250 ML IVC SCH (18:32)
[2019-07-21] MEDS: Artificial Tears SOLN 15 ML BOTTLE BOTH EYES SCH ×6 (03:54→23:56)
[2019-07-21] MEDS: Desitin (Zinc Oxide) 56 GM TUBE TP PRN (03:54)
[2019-07-21 04:00] LABS: VBG Ionized Calcium 1.26 mmol/L (1.15-1.35)
[2019-07-21] MEDS: Insulin LISPRO 300 UNITS/3 ML VIAL SQ SCH ×6 (04:00→23:56)
[2019-07-21 04:01] LABS: Basophils % 0.2 %; Eosinophils # 0.1 K/mcL (0.0-0.6); Hematocrit 25.4 % (35.3-44.9); Hemoglobin 8.1 g/dL (11.5-15.4); Lymphocytes # 0.6 K/mcL (0.6-4.6); Lymphocytes % 5.4 %; Mean Corpuscular HGB Conc 31.9 g/dL (31.6-35.5); Mean Corpuscular Hemoglobin 30.8 pg (28.0-33.3); Mean Corpuscular Volume 96.6 fL (83.0-100.0); Mean Platelet Volume 10.6 fL (9.4-12.4); Monocytes % 8.7 %; Neutrophils # 9.4 K/mcL (1.6-8.9); Platelet Count 185 K/mcL (140-400); Red Blood Count 2.63 M/mcL (3.82-4.97); Red Cell Distribution Width 13.9 % (11.5-14.5); Segmented Neutrophils % 82.7 %
[2019-07-21 04:02] LABS: White Blood Count 11.4 K/mcL (4.3-11.1)
[2019-07-21 04:18] LABS: Calcium 8.6 mg/dL (8.6-10.3); Phosphorous 3.3 mg/dL (2.7-4.5); Potassium 3.6 mEq/L (3.5-5.1)
[2019-07-21 04:32] LABS: ABG Base Excess 1 mEq/L (-2 to 3); ABG HCO3 24 mEq/L (21-27); ABG Oxygen Saturation 96 % (95-98); ABG PCO2 34 mmHg (35-45); ABG PH 7.46 pH Units (7.32-7.45); ABG PO2 79 mmHg (85-104); ABG TCO2 25 mEq/L (20-26); Blood Gas Modality AF; Blood Gas VT 350 cc
[2019-07-21] MEDS: *HR* Heparin 5,000 UNIT/ML VIAL SQ SCH ×2 (05:24→17:13)
[2019-07-21] MEDS: Potassium Chloride Elixir 20 MEQ/15 ML UDC GTUBE PRN (05:30)
[2019-07-21] MEDS: Aspirin 81 MG TAB.CHEW PO SCH (07:58)
[2019-07-21] MEDS: Insulin DETEMIR 100 UNIT/ML X5UNITS SQ SCH ×2 (07:58→19:52)
[2019-07-21] MEDS: Chlorhexidine Rinse 15 ML MOUTHWASH MM SCH ×2 (07:58→19:53)
[2019-07-21] MEDS: Pantoprazole 40 MG VIAL IVP SCH (07:58)
[2019-07-21 09:24] LABS: Prothrombin Time 11.9 Seconds (9.4-12.1)
[2019-07-21 09:30] LABS: Albumin 2.4 g/dL (3.5-5.7); Bilirubin,Direct 0.1 mg/dL (0.0-0.2); Bilirubin,Indirect 0.2 mg/dL (0.0-1.0); Bilirubin,Total 0.3 mg/dL (0.3-1.0); Globulin 2.5 g/dL (2.4-3.5); Total Protein 4.9 g/dL (6.4-8.9)
[2019-07-21] MEDS ORDERED: Albumin 25% 25gram/100mL 25 GM/100 ML IV.SOLN IVPB ONE (09:51)
[2019-07-21] MEDS: DilTIAZem 50 MG in 0.9 % Sodium Chloride 40 ML IVC SCH (11:19)
[2019-07-21] MEDS: Furosemide 40 MG/4 ML VIAL IVP SCH ×2 (11:38→19:53)
[2019-07-21] MEDS: FentaNYL (PF) 1,000 MCG in 0.9 % Sodium Chloride 80 ML IVC SCH (15:32)
[2019-07-21] MEDS: Norepinephrine 4 MG in 0.9 % Sodium Chloride 250 ML IVC SCH (15:32)
[2019-07-21] MEDS: cefTRIAXone 1,000 MG in Water for inj. (sterile) 10 ML IVP SCH (17:12)
[2019-07-21] MEDS: Artificial Tears SOLN 15 ML BOTTLE BOTH EYES PRN (19:53)
[2019-07-22] MEDS: Artificial Tears SOLN 15 ML BOTTLE BOTH EYES SCH ×6 (04:15→23:12)
[2019-07-22] MEDS: Insulin LISPRO 300 UNITS/3 ML VIAL SQ SCH ×5 (04:16→19:49)
[2019-07-22 04:17] LABS: Basophils % 0.2 %; Eosinophils # 0.1 K/mcL (0.0-0.6); Eosinophils % 0.4 %; Hematocrit 24.6 % (35.3-44.9); Hemoglobin 7.9 g/dL (11.5-15.4); Immature Granulocytes % 1.9 % (0-4); Lymphocytes # 0.8 K/mcL (0.6-4.6); Lymphocytes % 4.5 %; Mean Corpuscular HGB Conc 32.1 g/dL (31.6-35.5); Mean Corpuscular Hemoglobin 31.3 pg (28.0-33.3); Mean Corpuscular Volume 97.6 fL (83.0-100.0); Mean Platelet Volume 10.8 fL (9.4-12.4); Monocytes # 1.1 K/mcL (0.0-1.3); Monocytes % 6.6 %; Neutrophils # 14.5 K/mcL (1.6-8.9); Platelet Count 259 K/mcL (140-400); Red Blood Count 2.52 M/mcL (3.82-4.97); Segmented Neutrophils % 86.4 %; White Blood Count 16.8 K/mcL (4.3-11.1)
[2019-07-22 04:29] LABS: Calcium 8.5 mg/dL (8.6-10.3); Magnesium 1.8 mg/dL (1.6-2.6); Phosphorous 3.7 mg/dL (2.7-4.5); Potassium 3.6 mEq/L (3.5-5.1)
[2019-07-22 05:02] LABS: ABG Base Excess 2 mEq/L (-2 to 3); ABG HCO3 26 mEq/L (21-27); ABG Oxygen Saturation 98 % (95-98); ABG PCO2 36 mmHg (35-45); ABG PH 7.46 pH Units (7.32-7.45); ABG PO2 95 mmHg (85-104); ABG TCO2 27 mEq/L (20-26); Blood Gas Modality AF; Blood Gas VT 350 cc
[2019-07-22] MEDS: *HR* Heparin 5,000 UNIT/ML VIAL SQ SCH ×2 (05:22→17:05)
[2019-07-22] MEDS: Potassium Chloride Elixir 20 MEQ/15 ML UDC GTUBE PRN (05:23)
[2019-07-22] MEDS: Furosemide 40 MG/4 ML VIAL IVP SCH ×2 (09:28→19:48)
[2019-07-22] MEDS: Chlorhexidine Rinse 15 ML MOUTHWASH MM SCH ×2 (09:28→19:49)
[2019-07-22] MEDS: Aspirin 81 MG TAB.CHEW PO SCH (09:28)
[2019-07-22] MEDS: Insulin DETEMIR 100 UNIT/ML X5UNITS SQ SCH ×2 (09:28→19:49)
[2019-07-22] MEDS: Pantoprazole 40 MG VIAL IVP SCH (09:28)
[2019-07-22 10:23] LABS: Bilirubin,Urine Negative (Negative); Blood,Urine Negative (Negative); Clarity,Urine Clear (Clear); Color,Urine Yellow (Yellow); Glucose,Urine (UA) 250 mg/dL (Normal); Ketones,Urine Trace mg/dL (Negative); Leukocyte Esterase,Urine Negative (Negative); Nitrite,Urine Negative (Negative); Protein,Urine 30 mg/dL (Neg-Trace); Specific Gravity,Urine 1.016 (1.010-1.025); Urobilinogen,Urine Normal (Normal)
[2019-07-22 10:28] LABS: Bacteria,Urine None Seen per hpf (None-Few); Hyaline Casts,Urine None Seen per lpf (None-Few); Squamous Epithelial Cell,Urine Moderate per lpf (None-Few)
[2019-07-22 10:51] LABS: Yeast,Urine Few per hpf (None Seen)
[2019-07-22] MEDS: DilTIAZem 50 MG in 0.9 % Sodium Chloride 40 ML IVC SCH (11:11)
[2019-07-22] MEDS: FentaNYL (PF) 1,000 MCG in 0.9 % Sodium Chloride 80 ML IVC SCH (12:33)
[2019-07-22] MEDS: Norepinephrine 4 MG in 0.9 % Sodium Chloride 250 ML IVC SCH (12:33)
[2019-07-22 13:34] LABS: Magnesium 2.2 mg/dL (1.6-2.6); Potassium 3.9 mEq/L (3.5-5.1)
[2019-07-22] MEDS: cefTRIAXone 1,000 MG in Water for inj. (sterile) 10 ML IVP SCH (17:05)
[2019-07-23 03:43] LABS: Basophils % 0.2 %; Eosinophils # 0.1 K/mcL (0.0-0.6); Eosinophils % 0.4 %; Hematocrit 23.3 % (35.3-44.9); Hemoglobin 7.4 g/dL (11.5-15.4); Immature Granulocytes % 1.6 % (0-4); Lymphocytes % 7.1 %; Mean Corpuscular HGB Conc 31.8 g/dL (31.6-35.5); Mean Corpuscular Hemoglobin 31.1 pg (28.0-33.3); Mean Corpuscular Volume 97.9 fL (83.0-100.0); Mean Platelet Volume 10.2 fL (9.4-12.4); Monocytes # 0.9 K/mcL (0.0-1.3); Monocytes % 6.4 %; Neutrophils # 11.7 K/mcL (1.6-8.9); Platelet Count 331 K/mcL (140-400); Red Blood Count 2.38 M/mcL (3.82-4.97); Red Cell Distribution Width 14.1 % (11.5-14.5); Segmented Neutrophils % 84.3 %; White Blood Count 13.9 K/mcL (4.3-11.1)
[2019-07-23 04:07] LABS: Calcium 8.7 mg/dL (8.6-10.3); Phosphorous 3.9 mg/dL (2.7-4.5); Potassium 3.3 mEq/L (3.5-5.1)
[2019-07-23 04:08] LABS: ABG Base Excess 4 mEq/L (-2 to 3); ABG HCO3 28 mEq/L (21-27); ABG Oxygen Saturation 96 % (95-98); ABG PCO2 37 mmHg (35-45); ABG PH 7.48 pH Units (7.32-7.45); ABG PO2 78 mmHg (85-104); ABG TCO2 29 mEq/L (20-26); Blood Gas Modality ASSIST CONTROL; Blood Gas VT 350 cc
[2019-07-23 04:26] LABS: Ferritin 442 ng/mL (10-120); Iron < 10 mcg/dL (50-170); Transferrin 116 mg/dL (203-362)
[2019-07-23 04:31] LABS: Folate 17.8 ng/mL (3.0-16.0)
[2019-07-23] MEDS: Insulin LISPRO 300 UNITS/3 ML VIAL SQ SCH ×6 (04:44→20:15)
[2019-07-23] MEDS: Artificial Tears SOLN 15 ML BOTTLE BOTH EYES SCH ×5 (04:45→20:15)
[2019-07-23] MEDS: *HR* Heparin 5,000 UNIT/ML VIAL SQ SCH ×2 (05:35→18:05)
[2019-07-23] MEDS: Potassium Chloride Elixir 20 MEQ/15 ML UDC GTUBE PRN (05:35)
[2019-07-23] MEDS: DilTIAZem 50 MG in 0.9 % Sodium Chloride 40 ML IVC SCH (07:43)
[2019-07-23] MEDS: FentaNYL (PF) 1,000 MCG in 0.9 % Sodium Chloride 80 ML IVC SCH (07:44)
[2019-07-23] MEDS: Furosemide 40 MG/4 ML VIAL IVP SCH ×2 (08:05→20:15)
[2019-07-23] MEDS: Aspirin 81 MG TAB.CHEW PO SCH (08:05)
[2019-07-23] MEDS: Pantoprazole 40 MG VIAL IVP SCH (08:05)
[2019-07-23] MEDS: Scopolamine Patch 1.5 MG PATCH.TD72 TD SCH (08:06)
[2019-07-23] MEDS: Chlorhexidine Rinse 15 ML MOUTHWASH MM SCH ×2 (08:06→20:15)
[2019-07-23] MEDS: Insulin DETEMIR 100 UNIT/ML X5UNITS SQ SCH ×2 (08:09→20:15)
[2019-07-23] MEDS: Norepinephrine 4 MG in 0.9 % Sodium Chloride 250 ML IVC SCH (10:15)
[2019-07-23 11:26] LABS: Potassium 3.4 mEq/L (3.5-5.1)
[2019-07-23] MEDS: cefTRIAXone 1,000 MG in Water for inj. (sterile) 10 ML IVP SCH (18:03)
[2019-07-24] MEDS: Insulin LISPRO 300 UNITS/3 ML VIAL SQ SCH ×7 (00:09→23:13)
[2019-07-24] MEDS: Artificial Tears SOLN 15 ML BOTTLE BOTH EYES SCH ×7 (00:09→23:13)
[2019-07-24 03:55] LABS: Basophils % 0.3 %; Eosinophils # 0.1 K/mcL (0.0-0.6); Eosinophils % 0.9 %; Hematocrit 23.7 % (35.3-44.9); Hemoglobin 7.5 g/dL (11.5-15.4); Immature Granulocytes % 2.1 % (0-4); Lymphocytes # 0.9 K/mcL (0.6-4.6); Mean Corpuscular HGB Conc 31.6 g/dL (31.6-35.5); Mean Corpuscular Hemoglobin 31.1 pg (28.0-33.3); Mean Corpuscular Volume 98.3 fL (83.0-100.0); Mean Platelet Volume 10.2 fL (9.4-12.4); Monocytes # 0.6 K/mcL (0.0-1.3); Monocytes % 4.8 %; Neutrophils # 10.9 K/mcL (1.6-8.9); Platelet Count 356 K/mcL (140-400); Red Blood Count 2.41 M/mcL (3.82-4.97); Red Cell Distribution Width 13.7 % (11.5-14.5); Segmented Neutrophils % 84.9 %; White Blood Count 12.8 K/mcL (4.3-11.1)
[2019-07-24 03:59] LABS: ABG Base Excess 5 mEq/L (-2 to 3); ABG HCO3 29 mEq/L (21-27); ABG Oxygen Saturation 98 % (95-98); ABG PCO2 40 mmHg (35-45); ABG PH 7.47 pH Units (7.32-7.45); ABG PO2 96 mmHg (85-104); ABG TCO2 30 mEq/L (20-26); Blood Gas Modality ASSIST CONTROL; Blood Gas VT 350 cc
[2019-07-24 04:53] LABS: Calcium 8.6 mg/dL (8.6-10.3); Magnesium 1.7 mg/dL (1.6-2.6); Phosphorous 3.9 mg/dL (2.7-4.5); Potassium 3.2 mEq/L (3.5-5.1)
[2019-07-24] MEDS: Potassium Chloride Elixir 20 MEQ/15 ML UDC GTUBE PRN ×2 (06:04→17:15)
[2019-07-24] MEDS: *HR* Heparin 5,000 UNIT/ML VIAL SQ SCH ×2 (06:04→17:16)
[2019-07-24] MEDS: Furosemide 40 MG/4 ML VIAL IVP SCH ×2 (08:38→20:06)
[2019-07-24] MEDS: Pantoprazole 40 MG VIAL IVP SCH (08:38)
[2019-07-24] MEDS: Chlorhexidine Rinse 15 ML MOUTHWASH MM SCH ×2 (08:38→20:06)
[2019-07-24] MEDS: Aspirin 81 MG TAB.CHEW PO SCH (08:38)
[2019-07-24] MEDS: Lacri-Lube 3.5 GM TUBE BOTH EYES SCH ×2 (09:09→20:06)
[2019-07-24] MEDS: Insulin DETEMIR 100 UNIT/ML X5UNITS SQ SCH ×2 (09:19→20:06)
[2019-07-24] MEDS: DilTIAZem 50 MG in 0.9 % Sodium Chloride 40 ML IVC SCH (09:21)
[2019-07-24 11:49] LABS: VBG Ionized Calcium 1.18 mmol/L (1.15-1.35)
[2019-07-24 12:13] LABS: Magnesium 2.1 mg/dL (1.6-2.6); Phosphorous 3.6 mg/dL (2.7-4.5); Potassium 3.4 mEq/L (3.5-5.1)
[2019-07-24] MEDS: cefTRIAXone 1,000 MG in Water for inj. (sterile) 10 ML IVP SCH (17:17)
[2019-07-25 03:22] LABS: Basophils % 0.2 %; Eosinophils # 0.1 K/mcL (0.0-0.6); Eosinophils % 0.3 %; Hematocrit 24.2 % (35.3-44.9); Hemoglobin 7.4 g/dL (11.5-15.4); Immature Granulocytes % 1.9 % (0-4); Lymphocytes # 1.2 K/mcL (0.6-4.6); Lymphocytes % 6.7 %; Mean Corpuscular HGB Conc 30.6 g/dL (31.6-35.5); Mean Corpuscular Hemoglobin 30.3 pg (28.0-33.3); Mean Corpuscular Volume 99.2 fL (83.0-100.0); Mean Platelet Volume 10.3 fL (9.4-12.4); Monocytes # 1.1 K/mcL (0.0-1.3); Neutrophils # 15.1 K/mcL (1.6-8.9); Platelet Count 424 K/mcL (140-400); Red Blood Count 2.44 M/mcL (3.82-4.97); Red Cell Distribution Width 13.8 % (11.5-14.5); Segmented Neutrophils % 84.9 %; White Blood Count 17.8 K/mcL (4.3-11.1)
[2019-07-25 03:31] LABS: INR 1.2; Prothrombin Time 13.2 Seconds (9.4-12.1)
[2019-07-25 03:34] LABS: Activated Partial Thrombo Time 28.2 Seconds (26.0-36.0)
[2019-07-25] MEDS: Artificial Tears SOLN 15 ML BOTTLE BOTH EYES SCH ×6 (03:38→23:34)
[2019-07-25] MEDS: Insulin LISPRO 300 UNITS/3 ML VIAL SQ SCH ×5 (03:39→21:09)
[2019-07-25 03:47] LABS: Calcium 8.4 mg/dL (8.6-10.3); Magnesium 1.8 mg/dL (1.6-2.6); Phosphorous 3.5 mg/dL (2.7-4.5); Potassium 3.2 mEq/L (3.5-5.1)
[2019-07-25 04:49] LABS: ABG Base Excess 6 mEq/L (-2 to 3); ABG HCO3 30 mEq/L (21-27); ABG Oxygen Saturation 97 % (95-98); ABG PCO2 40 mmHg (35-45); ABG PH 7.48 pH Units (7.32-7.45); ABG PO2 81 mmHg (85-104); ABG TCO2 31 mEq/L (20-26); Blood Gas Modality AF; Blood Gas VT 350 cc
[2019-07-25] MEDS: *HR* Heparin 5,000 UNIT/ML VIAL SQ SCH ×2 (05:10→18:11)
[2019-07-25] MEDS: Potassium Chloride Elixir 20 MEQ/15 ML UDC GTUBE PRN (05:25)
[2019-07-25] MEDS ORDERED: Clindamycin 600 MG/50 ML 600 MG/50 ML IV.SOLN IVPB ONE (08:11)
[2019-07-25] MEDS ORDERED: Vancomycin 1 EACH in 0.9 % Sodium Chloride 250 ML IVPB PRN (08:12)
[2019-07-25] MEDS: Furosemide 40 MG/4 ML VIAL IVP SCH ×2 (08:45→21:09)
[2019-07-25] MEDS: Pantoprazole 40 MG VIAL IVP SCH (08:45)
[2019-07-25] MEDS: Chlorhexidine Rinse 15 ML MOUTHWASH MM SCH ×2 (08:46→21:09)
[2019-07-25] MEDS: Aspirin 81 MG TAB.CHEW PO SCH (08:46)
[2019-07-25] MEDS: Lacri-Lube 3.5 GM TUBE BOTH EYES SCH ×2 (08:55→21:10)
[2019-07-25] MEDS: Insulin DETEMIR 100 UNIT/ML X5UNITS SQ SCH ×2 (09:07→21:09)
[2019-07-25 13:56] LABS: Bilirubin,Urine Negative (Negative); Blood,Urine Small (Negative); Clarity,Urine Cloudy (Clear); Color,Urine Yellow (Yellow); Glucose,Urine (UA) Normal (Normal); Ketones,Urine Negative (Negative); Leukocyte Esterase,Urine Small (Negative); Nitrite,Urine Negative (Negative); Protein,Urine 30 mg/dL (Neg-Trace); Specific Gravity,Urine 1.014 (1.010-1.025); Urobilinogen,Urine Normal (Normal)
[2019-07-25 13:58] LABS: Hyaline Casts,Urine Few per lpf (None-Few); Squamous Epithelial Cell,Urine Many per lpf (None-Few); WBC,Urine 15-30 per hpf (0-3)
[2019-07-25 14:07] LABS: RBC,Urine 0-3 per hpf (0-3)
[2019-07-25 14:08] LABS: Bacteria,Urine Few per hpf (None-Few); Yeast,Urine Many per hpf (None Seen)
[2019-07-25] MEDS ORDERED: Cefepime HCl 1,000 MG in 0.9 % Sodium Chloride Mini Bag 100 ML IVPB SCH (16:00)
[2019-07-25] MEDS: Cefepime HCl 1,000 MG in 0.9 % Sodium Chloride Mini Bag 100 ML IVPB SCH (16:36)
[2019-07-26] MEDS: Insulin LISPRO 300 UNITS/3 ML VIAL SQ SCH ×7 (00:21→23:48)
[2019-07-26] MEDS: Artificial Tears SOLN 15 ML BOTTLE BOTH EYES SCH ×6 (03:47→23:47)
[2019-07-26] MEDS: Cefepime HCl 1,000 MG in 0.9 % Sodium Chloride Mini Bag 100 ML IVPB SCH ×2 (03:47→17:02)
[2019-07-26 03:50] LABS: Basophils # 0.1 K/mcL (0.0-0.2); Basophils % 0.2 %; Eosinophils # 0.1 K/mcL (0.0-0.6); Eosinophils % 0.2 %; Hematocrit 25.6 % (35.3-44.9); Hemoglobin 7.9 g/dL (11.5-15.4); Immature Granulocytes % 1.7 % (0-4); Lymphocytes % 4.8 %; Mean Corpuscular HGB Conc 30.9 g/dL (31.6-35.5); Mean Corpuscular Volume 97.3 fL (83.0-100.0); Mean Platelet Volume 9.8 fL (9.4-12.4); Monocytes # 0.9 K/mcL (0.0-1.3); Monocytes % 4.5 %; Neutrophils # 17.9 K/mcL (1.6-8.9); Platelet Count 449 K/mcL (140-400); Red Blood Count 2.63 M/mcL (3.82-4.97); Red Cell Distribution Width 13.7 % (11.5-14.5); Segmented Neutrophils % 88.6 %; White Blood Count 20.3 K/mcL (4.3-11.1)
[2019-07-26 04:17] LABS: Calcium 8.4 mg/dL (8.6-10.3); Magnesium 1.9 mg/dL (1.6-2.6); Phosphorous 3.6 mg/dL (2.7-4.5)
[2019-07-26 04:46] LABS: ABG Base Excess 8 mEq/L (-2 to 3); ABG HCO3 32 mEq/L (21-27); ABG Oxygen Saturation 97 % (95-98); ABG PCO2 39 mmHg (35-45); ABG PH 7.53 pH Units (7.32-7.45); ABG PO2 79 mmHg (85-104); ABG TCO2 33 mEq/L (20-26); Blood Gas Modality ASSIST CONTROL; Blood Gas VT 350 cc
[2019-07-26] MEDS: Potassium Chloride Elixir 20 MEQ/15 ML UDC GTUBE PRN ×2 (05:52→22:16)
[2019-07-26] MEDS: *HR* Heparin 5,000 UNIT/ML VIAL SQ SCH ×2 (05:52→16:57)
[2019-07-26] MEDS: Lacri-Lube 3.5 GM TUBE BOTH EYES SCH ×2 (08:41→20:26)
[2019-07-26] MEDS: Pantoprazole 40 MG VIAL IVP SCH (08:42)
[2019-07-26] MEDS: Scopolamine Patch 1.5 MG PATCH.TD72 TD SCH (08:42)
[2019-07-26] MEDS: Chlorhexidine Rinse 15 ML MOUTHWASH MM SCH ×2 (08:42→20:25)
[2019-07-26] MEDS: Furosemide 40 MG/4 ML VIAL IVP SCH ×2 (08:43→20:25)
[2019-07-26] MEDS: Insulin DETEMIR 100 UNIT/ML X5UNITS SQ SCH ×2 (08:43→20:26)
[2019-07-26] MEDS: Aspirin 81 MG TAB.CHEW PO SCH (08:43)
[2019-07-26] MEDS ORDERED: *HR* Rocuronium Bromide 50 MG/5 ML VIAL IVC ONE (08:58)
[2019-07-26] MEDS ORDERED: *HR* Midazolam HCl 2 MG/2 ML VIAL IV ONE (08:58)
[2019-07-26] MEDS ORDERED: *HR* Etomidate 40 MG/20 ML VIAL IVP ONE (08:58)
[2019-07-26] MEDS ORDERED: *HR* FentaNYL (PF) 100 MCG/2 ML VIAL IVP ONE (10:55)
[2019-07-26] MEDS ORDERED: *HR* Midazolam HCl 5 MG/5 ML VIAL IVP ONE (10:55)
[2019-07-26 11:47] LABS: Magnesium 2.4 mg/dL (1.6-2.6); Potassium 3.2 mEq/L (3.5-5.1)
[2019-07-26] MEDS ORDERED: Potassium Chloride Elixir 20 MEQ/15 ML UDC PO ONE (13:57)
[2019-07-26] MEDS: *HR* Dextrose 50 % in Water (Syg) 50 ML SYRINGE IVP PRN (17:13)
[2019-07-26 19:59] LABS: Source of Body Fluid LLL BAL
[2019-07-26 20:12] LABS: Appearance of Body Fluid Cloudy (Clear); Volume of Body Fluid 18 mL
[2019-07-27 04:03] LABS: Basophils # 0.1 K/mcL (0.0-0.2); Basophils % 0.3 %; Eosinophils # 0.1 K/mcL (0.0-0.6); Eosinophils % 0.5 %; Hematocrit 25.2 % (35.3-44.9); Hemoglobin 7.5 g/dL (11.5-15.4); Immature Granulocytes % 1.8 % (0-4); Lymphocytes % 5.7 %; Mean Corpuscular HGB Conc 29.8 g/dL (31.6-35.5); Mean Corpuscular Hemoglobin 29.3 pg (28.0-33.3); Mean Corpuscular Volume 98.4 fL (83.0-100.0); Mean Platelet Volume 10.3 fL (9.4-12.4); Monocytes # 0.7 K/mcL (0.0-1.3); Neutrophils # 15.7 K/mcL (1.6-8.9); Platelet Count 465 K/mcL (140-400); Red Blood Count 2.56 M/mcL (3.82-4.97); Red Cell Distribution Width 13.9 % (11.5-14.5); Segmented Neutrophils % 87.7 %; White Blood Count 17.9 K/mcL (4.3-11.1)
[2019-07-27 04:04] LABS: VBG Ionized Calcium 1.16 mmol/L (1.15-1.35)
[2019-07-27] MEDS: Insulin LISPRO 300 UNITS/3 ML VIAL SQ SCH ×6 (04:06→23:32)
[2019-07-27] MEDS: Artificial Tears SOLN 15 ML BOTTLE BOTH EYES SCH ×6 (04:06→23:30)
[2019-07-27] MEDS: Cefepime HCl 1,000 MG in 0.9 % Sodium Chloride Mini Bag 100 ML IVPB SCH (04:10)
[2019-07-27 04:21] LABS: Calcium 8.4 mg/dL (8.6-10.3); Magnesium 2.1 mg/dL (1.6-2.6); Phosphorous 3.7 mg/dL (2.7-4.5)
[2019-07-27 04:45] LABS: ABG Base Excess 6 mEq/L (-2 to 3); ABG HCO3 31 mEq/L (21-27); ABG Oxygen Saturation 97 % (95-98); ABG PCO2 41 mmHg (35-45); ABG PH 7.48 pH Units (7.32-7.45); ABG PO2 86 mmHg (85-104); ABG TCO2 32 mEq/L (20-26); Blood Gas Modality ASSIST CONTROL; Blood Gas VT 350 cc
[2019-07-27] MEDS: *HR* Heparin 5,000 UNIT/ML VIAL SQ SCH ×2 (05:40→18:23)
[2019-07-27] MEDS ORDERED: Furosemide 40 MG/4 ML VIAL IVP ONE (08:04)
[2019-07-27] MEDS: Insulin DETEMIR 100 UNIT/ML X5UNITS SQ SCH ×2 (09:31→21:19)
[2019-07-27] MEDS: Magic Mouthwash 10 ML UD Cup PO SCH ×3 (09:32→18:24)
[2019-07-27] MEDS: Pantoprazole 40 MG VIAL IVP SCH (09:33)
[2019-07-27] MEDS: Lacri-Lube 3.5 GM TUBE BOTH EYES SCH ×2 (09:36→21:19)
[2019-07-27] MEDS: Chlorhexidine Rinse 15 ML MOUTHWASH MM SCH ×2 (09:36→21:17)
[2019-07-27] MEDS: Furosemide 40 MG/4 ML VIAL IVP SCH ×2 (09:36→21:17)
[2019-07-27] MEDS: FentaNYL (PF) 1,000 MCG in 0.9 % Sodium Chloride 80 ML IVC SCH (10:17)
[2019-07-27] MEDS: Aspirin 81 MG TAB.CHEW PO SCH (11:20)
[2019-07-27 16:18] LABS: ABG Base Excess 6 mEq/L (-2 to 3); ABG HCO3 31 mEq/L (21-27); ABG Oxygen Saturation 95 % (95-98); ABG PCO2 43 mmHg (35-45); ABG PH 7.46 pH Units (7.32-7.45); ABG PO2 72 mmHg (85-104); ABG TCO2 32 mEq/L (20-26); Blood Gas Modality AF; Blood Gas VT 400 cc
[2019-07-27] MEDS: Artificial Tears SOLN 15 ML BOTTLE BOTH EYES PRN (21:17)
[2019-07-28] MEDS: Artificial Tears SOLN 15 ML BOTTLE BOTH EYES SCH ×6 (03:06→23:37)
[2019-07-28 04:28] LABS: ABG Base Excess 12 mEq/L (-2 to 3); ABG HCO3 36 mEq/L (21-27); ABG Oxygen Saturation 97 % (95-98); ABG PCO2 45 mmHg (35-45); ABG PO2 86 mmHg (85-104); ABG TCO2 37 mEq/L (20-26); Blood Gas Modality ASSIST CONTROL; Blood Gas VT 400 cc
[2019-07-28] MEDS: Insulin LISPRO 300 UNITS/3 ML VIAL SQ SCH ×6 (04:32→23:37)
[2019-07-28 05:00] LABS: Basophils # 0.1 K/mcL (0.0-0.2); Basophils % 0.5 %; Eosinophils # 0.1 K/mcL (0.0-0.6); Eosinophils % 0.7 %; Hematocrit 24.1 % (35.3-44.9); Hemoglobin 7.3 g/dL (11.5-15.4); Immature Granulocytes % 0.9 % (0-4); Lymphocytes # 1.5 K/mcL (0.6-4.6); Lymphocytes % 9.1 %; Mean Corpuscular HGB Conc 30.3 g/dL (31.6-35.5); Mean Corpuscular Hemoglobin 30.7 pg (28.0-33.3); Mean Corpuscular Volume 101.3 fL (83.0-100.0); Mean Platelet Volume 10.3 fL (9.4-12.4); Monocytes % 5.8 %; Platelet Count 448 K/mcL (140-400); Red Blood Count 2.38 M/mcL (3.82-4.97); Red Cell Distribution Width 13.6 % (11.5-14.5); White Blood Count 16.9 K/mcL (4.3-11.1)
[2019-07-28 05:19] LABS: Calcium 8.8 mg/dL (8.6-10.3); Magnesium 2.1 mg/dL (1.6-2.6); Phosphorous 3.7 mg/dL (2.7-4.5); Potassium 3.4 mEq/L (3.5-5.1)
[2019-07-28] MEDS: *HR* Heparin 5,000 UNIT/ML VIAL SQ SCH ×2 (05:40→17:07)
[2019-07-28] MEDS: Potassium Chloride Elixir 20 MEQ/15 ML UDC GTUBE PRN (05:40)
[2019-07-28] MEDS ORDERED: Cefepime HCl 1,000 MG in 0.9 % Sodium Chloride Mini Bag 100 ML IVPB SCH ×2 (06:00→18:00)
[2019-07-28] MEDS: Chlorhexidine Rinse 15 ML MOUTHWASH MM SCH ×2 (08:15→19:39)
[2019-07-28] MEDS: Pantoprazole 40 MG VIAL IVP SCH (08:15)
[2019-07-28] MEDS: Magic Mouthwash 10 ML UD Cup PO SCH ×3 (08:15→17:06)
[2019-07-28] MEDS: D5% in Water 1,000 ML IVC SCH ×2 (08:15→21:45)
[2019-07-28] MEDS: Aspirin 81 MG TAB.CHEW PO SCH (08:15)
[2019-07-28] MEDS: Furosemide 40 MG/4 ML VIAL IVP SCH ×2 (08:16→19:39)
[2019-07-28] MEDS: Lacri-Lube 3.5 GM TUBE BOTH EYES SCH ×2 (08:26→19:41)
[2019-07-28] MEDS: Insulin DETEMIR 100 UNIT/ML X5UNITS SQ SCH ×2 (08:27→19:41)
[2019-07-28 10:50] LABS: INR 1.3; Prothrombin Time 14.8 Seconds (9.4-12.1)
[2019-07-28 10:53] LABS: Activated Partial Thrombo Time 30.4 Seconds (26.0-36.0)
[2019-07-28] MEDS: FentaNYL (PF) 1,000 MCG in 0.9 % Sodium Chloride 80 ML IVC SCH ×2 (19:35→22:47)
[2019-07-29 03:45] LABS: ABG Base Excess 10 mEq/L (-2 to 3); ABG HCO3 35 mEq/L (21-27); ABG Oxygen Saturation 96 % (95-98); ABG PCO2 44 mmHg (35-45); ABG PO2 77 mmHg (85-104); ABG TCO2 36 mEq/L (20-26); Blood Gas VT 400 cc
[2019-07-29] MEDS: Insulin LISPRO 300 UNITS/3 ML VIAL SQ SCH ×6 (04:53→23:23)
[2019-07-29] MEDS: Artificial Tears SOLN 15 ML BOTTLE BOTH EYES SCH ×6 (04:53→22:52)
[2019-07-29 05:31] LABS: Basophils # 0.1 K/mcL (0.0-0.2); Basophils % 0.6 %; Eosinophils # 0.2 K/mcL (0.0-0.6); Eosinophils % 1.5 %; Hematocrit 23.9 % (35.3-44.9); Hemoglobin 7.2 g/dL (11.5-15.4); Immature Granulocytes % 1.5 % (0-4); Lymphocytes # 1.5 K/mcL (0.6-4.6); Lymphocytes % 12.4 %; Mean Corpuscular HGB Conc 30.1 g/dL (31.6-35.5); Mean Corpuscular Hemoglobin 30.6 pg (28.0-33.3); Mean Corpuscular Volume 101.7 fL (83.0-100.0); Mean Platelet Volume 10.3 fL (9.4-12.4); Monocytes # 0.7 K/mcL (0.0-1.3); Monocytes % 6.1 %; Neutrophils # 9.4 K/mcL (1.6-8.9); Platelet Count 431 K/mcL (140-400); Red Blood Count 2.35 M/mcL (3.82-4.97); Red Cell Distribution Width 13.6 % (11.5-14.5); Segmented Neutrophils % 77.9 %; White Blood Count 12.1 K/mcL (4.3-11.1)
[2019-07-29 05:52] LABS: Calcium 8.7 mg/dL (8.6-10.3); Phosphorous 3.5 mg/dL (2.7-4.5); Potassium 3.4 mEq/L (3.5-5.1)
[2019-07-29] MEDS: Cefepime HCl 1,000 MG in Water for inj. (sterile) 10 ML IVPB SCH ×2 (06:25→17:14)
[2019-07-29] MEDS: *HR* Heparin 5,000 UNIT/ML VIAL SQ SCH ×2 (06:25→17:14)
[2019-07-29] MEDS: Magic Mouthwash 10 ML UD Cup PO SCH ×3 (07:57→16:01)
[2019-07-29] MEDS: MethylPREDNISolone 40 MG/ML VIAL IVP SCH (07:58)
[2019-07-29] MEDS: Furosemide 40 MG/4 ML VIAL IVP SCH (07:58)
[2019-07-29] MEDS: Pantoprazole 40 MG VIAL IVP SCH (07:58)
[2019-07-29] MEDS: Chlorhexidine Rinse 15 ML MOUTHWASH MM SCH ×2 (07:58→19:44)
[2019-07-29] MEDS: Aspirin 81 MG TAB.CHEW PO SCH (08:04)
[2019-07-29] MEDS: Lacri-Lube 3.5 GM TUBE BOTH EYES SCH ×2 (08:05→19:45)
[2019-07-29] MEDS: Scopolamine Patch 1.5 MG PATCH.TD72 TD SCH (08:14)
[2019-07-29] MEDS: Insulin DETEMIR 100 UNIT/ML X5UNITS SQ SCH ×2 (08:14→19:45)
[2019-07-29] MEDS ORDERED: D10% in Water 500 ML IVC PRN (11:04)
[2019-07-29] MEDS: Albumin 25% 25gram/100mL 25 GM/100 ML IV.SOLN IVC SCH ×2 (11:21→11:30)
[2019-07-29] MEDS: D5% in Water 1,000 ML IVC SCH (11:26)
[2019-07-29] MEDS ORDERED: Lidocaine -MPF 1% 5 ML AMPUL INFILT ONE (12:04)
[2019-07-29] MEDS: Desitin (Zinc Oxide) 56 GM TUBE TP PRN (15:47)
[2019-07-29] MEDS ORDERED: Clinimix E 5%-15% SOLUTION 2,000 ML with MVI, adult with vitamin K 10 ML IVC SCH (17:00)
[2019-07-29 17:18] LABS: Calcium 9.1 mg/dL (8.6-10.3); Potassium 3.4 mEq/L (3.5-5.1)
[2019-07-30 04:33] LABS: Basophils % 0.3 %; Hematocrit 23.5 % (35.3-44.9); Hemoglobin 7.1 g/dL (11.5-15.4); Immature Granulocytes % 3.2 % (0-4); Lymphocytes % 7.6 %; Mean Corpuscular HGB Conc 30.2 g/dL (31.6-35.5); Mean Corpuscular Hemoglobin 29.8 pg (28.0-33.3); Mean Corpuscular Volume 98.7 fL (83.0-100.0); Mean Platelet Volume 10.3 fL (9.4-12.4); Monocytes # 0.7 K/mcL (0.0-1.3); Monocytes % 5.3 %; Neutrophils # 10.5 K/mcL (1.6-8.9); Platelet Count 480 K/mcL (140-400); Red Blood Count 2.38 M/mcL (3.82-4.97); Red Cell Distribution Width 13.4 % (11.5-14.5); Segmented Neutrophils % 83.6 %; White Blood Count 12.5 K/mcL (4.3-11.1)
[2019-07-30 04:52] LABS: Albumin 2.9 g/dL (3.5-5.7); Albumin/Globulin Ratio 0.9 (1.1-2.2); Calcium 9.2 mg/dL (8.6-10.3); Globulin 3.4 g/dL (2.4-3.5); Magnesium 1.9 mg/dL (1.6-2.6); Phosphorous 3.8 mg/dL (2.7-4.5); Potassium 3.3 mEq/L (3.5-5.1); Total Protein 6.3 g/dL (6.4-8.9)
[2019-07-30] MEDS: Artificial Tears SOLN 15 ML BOTTLE BOTH EYES SCH ×3 (05:06→10:42)
[2019-07-30] MEDS: Cefepime HCl 1,000 MG in Water for inj. (sterile) 10 ML IVPB SCH ×3 (05:13→22:09)
[2019-07-30] MEDS: Insulin LISPRO 300 UNITS/3 ML VIAL SQ SCH ×5 (05:14→19:56)
[2019-07-30] MEDS: *HR* Heparin 5,000 UNIT/ML VIAL SQ SCH ×2 (05:14→17:10)
[2019-07-30] MEDS ORDERED: Furosemide 20 MG/2 ML VIAL IVP ONE (07:54)
[2019-07-30] MEDS: Magic Mouthwash 10 ML UD Cup PO SCH ×3 (07:55→16:06)
[2019-07-30] MEDS: MethylPREDNISolone 40 MG/ML VIAL IVP SCH (07:59)
[2019-07-30] MEDS: Pantoprazole 40 MG VIAL IVP SCH (07:59)
[2019-07-30] MEDS: Aspirin 81 MG TAB.CHEW PO SCH (07:59)
[2019-07-30] MEDS: Chlorhexidine Rinse 15 ML MOUTHWASH MM SCH (07:59)
[2019-07-30] MEDS: Lacri-Lube 3.5 GM TUBE BOTH EYES SCH ×2 (07:59→19:52)
[2019-07-30] MEDS: FentaNYL (PF) 1,000 MCG in 0.9 % Sodium Chloride 80 ML IVC SCH (07:59)
[2019-07-30] MEDS: Insulin DETEMIR 100 UNIT/ML X5UNITS SQ SCH ×2 (08:01→19:52)
[2019-07-30] MEDS: Acetylcysteine 10% 2 ML INHSOL IH SCH ×4 (08:40→19:56)
[2019-07-30] MEDS: Ipratropium/Albuterol Neb 3 ML IH SCH ×3 (11:37→19:56)
[2019-07-30] MEDS: Potassium Chloride 40 MEQ, Lidocaine 1% 2 ML in 0.9 % Sodium Chloride 500 ML IVPB PRN (11:56)
[2019-07-30] MEDS ORDERED: Clinimix E 5%-15% SOLUTION 2,000 ML with MVI, adult with vitamin K 10 ML, Trace Eleme... IVC SCH (17:00)
[2019-07-31] MEDS: Insulin LISPRO 300 UNITS/3 ML VIAL SQ SCH ×3 (00:04→07:59)
[2019-07-31] MEDS: Acetylcysteine 10% 2 ML INHSOL IH SCH ×4 (00:11→11:36)
[2019-07-31] MEDS: Ipratropium/Albuterol Neb 3 ML IH SCH ×4 (00:11→11:36)
[2019-07-31 04:51] LABS: Basophils % 0.3 %; Immature Granulocytes % 4.2 % (0-4); Lymphocytes # 1.3 K/mcL (0.6-4.6); Lymphocytes % 8.4 %; Mean Corpuscular HGB Conc 30.4 g/dL (31.6-35.5); Mean Corpuscular Hemoglobin 30.3 pg (28.0-33.3); Mean Corpuscular Volume 99.6 fL (83.0-100.0); Mean Platelet Volume 10.3 fL (9.4-12.4); Monocytes # 0.9 K/mcL (0.0-1.3); Monocytes % 6.2 %; Neutrophils # 12.3 K/mcL (1.6-8.9); Platelet Count 485 K/mcL (140-400); Red Blood Count 2.31 M/mcL (3.82-4.97); Red Cell Distribution Width 13.7 % (11.5-14.5); Segmented Neutrophils % 80.9 %; White Blood Count 15.2 K/mcL (4.3-11.1)
[2019-07-31 05:05] LABS: Calcium 9.1 mg/dL (8.6-10.3); Potassium 3.5 mEq/L (3.5-5.1)
[2019-07-31 06:01] LABS: Magnesium 1.9 mg/dL (1.6-2.6); Phosphorous 3.8 mg/dL (2.7-4.5)
[2019-07-31] MEDS: *HR* Heparin 5,000 UNIT/ML VIAL SQ SCH (06:08)
[2019-07-31] MEDS: Cefepime HCl 1,000 MG in Water for inj. (sterile) 10 ML IVPB SCH ×2 (06:09→13:54)
[2019-07-31] MEDS: Potassium Chloride 40 MEQ, Lidocaine 1% 2 ML in 0.9 % Sodium Chloride 500 ML IVPB PRN (07:20)
[2019-07-31] MEDS: Magic Mouthwash 10 ML UD Cup PO SCH ×2 (07:52→11:44)
[2019-07-31] MEDS: MethylPREDNISolone 40 MG/ML VIAL IVP SCH (07:58)
[2019-07-31] MEDS: Pantoprazole 40 MG VIAL IVP SCH (07:58)
[2019-07-31] MEDS: Insulin DETEMIR 100 UNIT/ML X5UNITS SQ SCH (07:59)
[2019-07-31] MEDS: Aspirin 81 MG TAB.CHEW PO SCH (07:59)
[2019-07-31] MEDS: Lacri-Lube 3.5 GM TUBE BOTH EYES SCH (08:01)
[2019-07-31] MEDS ORDERED: Lidocaine Viscous Oral Soln 15 ML SOLUTION ONE (08:31)
[2019-07-31] MEDS ORDERED: Lidocaine Viscous Oral Soln 15 ML SOLUTION MM PRN ×2 (09:05→14:54)
[2019-07-31 10:25] LABS: HSV Source BAL
[2019-07-31] MEDS ORDERED: Insulin LISPRO 300 UNITS/3 ML VIAL SQ SCH (10:59)
[2019-07-31] MEDS ORDERED: FentaNYL (PF) 1,000 MCG in 0.9 % Sodium Chloride 80 ML IVC SCH ×2 (13:30→14:54)
[2019-07-31] MEDS ORDERED: *HR* LORazepam 2 MG/ML VIAL IVP PRN ×2 (13:31→14:54)
[2019-07-31] MEDS ORDERED: *HR* FentaNYL PATCH 50 MCG PATCH TD ONE ×2 (13:32→14:54)
[2019-07-31 14:11] VITALS: BP 141/63
[2019-07-31] MEDS ORDERED: Desitin (Zinc Oxide) 56 GM TUBE TP PRN (14:54)
[2019-07-31] MEDS ORDERED: Ipratropium/Albuterol Neb 3 ML IH PRN (14:54)
[2019-07-31] MEDS ORDERED: Lacri-Lube 3.5 GM TUBE BOTH EYES PRN (14:54)
[2019-07-31] MEDS ORDERED: Atropine Sulfate 1% 40 DROP/2 ML BOTTLE SL PRN (14:55)
[2019-07-31] MEDS ORDERED: Aminoglycoside Consult 1 EACH MC ONE (16:25)
[2019-07-31] MEDS ORDERED: Clinimix E 5%-15% SOLUTION 2,000 ML with MVI, adult with vitamin K 10 ML, Trace Eleme... IVC SCH (17:00)
[2019-07-31] MEDS ORDERED: Insulin DETEMIR 100 UNIT/ML X5UNITS SQ SCH (21:00)
== END 2019-07-31 16:26 | disposition expired | DRG 207 ==
LOC: EMEROOARM 10:50 → ICNU 13:34
PROVIDERS: ADMIT Internal Medicine; ATTEND Internal Medicine